=== PATIENT | male | born 1950 | race Caucasian/White ===

== ENCOUNTER 2018-11-26 08:00 | Inpatient (IN) | payer OTHER ==
[2018-11-22 15:55] VITALS: BMI 25.1
[2018-11-26] MEDS ORDERED: TRANEXAMIC ACID 1000 MG/10 ML VIAL ONE (10:17)
[2018-11-26] MEDS ORDERED: PROPOFOL 20 ML ONE ×11 (10:18→16:10)
[2018-11-26] MEDS ORDERED: SODIUM CHLORIDE 0.9% P/F 10 ML VIAL IJ ONE (10:55)
[2018-11-26] MEDS ORDERED: ceFAZolin SODIUM 1 GM VIAL ONE ×2 (10:55→20:52)
[2018-11-26] MEDS ORDERED: VANCOMYCIN 1,000 MG VIAL (RESTRICTED TO ID ONLY) ONE (10:55)
[2018-11-26] MEDS ORDERED: CEFAZOLIN 2 GM/D5W 2 GM/50 ML ML IVPB ONE (11:18)
[2018-11-26] MEDS ORDERED: VANCOMYCIN 1,250 MG in DEXTROSE 5%-WATER - 250 ML IVPB ONE (11:18)
[2018-11-26] MEDS ORDERED: KETAMINE HCL 200 MG/20 ML VIAL ONE (11:42)
[2018-11-26] MEDS ORDERED: HEPARIN NA (PORCINE) 5,000 UNITS/ML 1ML VIAL ONE ×2 (11:43→14:17)
[2018-11-26] MEDS ORDERED: fentaNYL CITRATE 250 MCG/5 ML VIAL ONE (11:58)
[2018-11-26] MEDS ORDERED: MIDAZOLAM HCL 2 MG/2 ML SINGLE DOSE VIAL ONE ×5 (11:58→13:00)
[2018-11-26] MEDS ORDERED: ROPIVACAINE HCL 0.5% 30ML VIAL ONE (12:06)
[2018-11-26] MEDS ORDERED: DEXAMETHASONE SOD PHOSPHATE 4 MG/1 ML VIAL ONE (12:06)
[2018-11-26] MEDS ORDERED: BENZOIN TINCTURE SWABSTICK TP ONE (12:18)
[2018-11-26] MEDS ORDERED: BACITRACIN 15 GM TUBE TOPICAL OINTMENT ONE (12:27)
[2018-11-26] MEDS ORDERED: DEXAMETHASONE SOD PHOSPHATE/PF 10 MG/ML SDV ONE (12:30)
--- NOTE | 2018-11-26 12:46 | HP ---
History & Physical Update - History History: No Change - Physical Physical: No Change - Assessment Assessment: No Change - Plan Plan: No Change (Full H&P in chart from 11/12/18)
[2018-11-26] MEDS ORDERED: VANCOMYCIN 1,000 MG VIAL (RESTRICTED TO ID ONLY) IVPB ONE (13:55)
[2018-11-26] MEDS ORDERED: ceFAZolin SODIUM 1 GM VIAL IVPB ONE ×2 (14:26→21:00)
[2018-11-26] MEDS ORDERED: THROMBIN (BOVINE) 5,000 UNIT VIAL TP ONE (14:28)
[2018-11-26] MEDS ORDERED: HYDROmorphone HCl 2 MG/ML VIAL ONE (14:40)
[2018-11-26] MEDS ORDERED: ONDANSETRON 4 MG/2 ML VIAL IVPUSH PRN ×2 (15:38→17:00)
[2018-11-26] MEDS ORDERED: HYDROmorphone *PCA* 10MG/50ML DISP.SYRIN PCA SCH (16:00)
[2018-11-26] MEDS ORDERED: BENZOIN/ALOE VERA/STORAX/TOLU 58 ML BOTTLE TP ONE (16:46)
[2018-11-26] MEDS ORDERED: LACTATED RINGERS SOLUTION 1,000 ML/1,000 ML INFUS.BAG IV SCH (17:00)
[2018-11-26] MEDS ORDERED: PATIENT'S OWN MEDICATION (NON-FORMULARY) (Cyclosporine [Restasis] 1 EACH) OP PRN (17:05)
[2018-11-26] MEDS ORDERED: PATIENT'S OWN MEDICATION (NON-FORMULARY) (Carisoprodol [Soma] 350 MG) PO PRN (17:05)
--- NOTE | 2018-11-26 17:08 | OP ---
Operative Note - Note: Operative Date: 11/26/18 Pre-Operative Diagnosis: cervical spondylosis Operation: C3-C7 posterior fusion Post-Operative Diagnosis: Same as Pre-op Surgeon: Juan Manuel Victoria Central Office Associate: Byron Schwartz Anesthesiologist/VACUUM CASTER: Jorge Gregg Anesthesia: General Operative Report Dictated: Yes
[2018-11-26] MEDS ORDERED: ACETAMINOPHEN 1000 MG/100 ML VIAL (NON FORMULARY) IVPB ONE (17:30)
--- NOTE | 2018-11-26 17:34 | HP ---
<ShanvelMaikel - Last Filed: 11/27/18 06:58> CHIEF COMPLAINT: Post-operative Cervical spine surgery PCP: HISTORY OF PRESENT ILLNESS: 68yo M with h/o of Type 2 DM, HLD, HTN who presents today after cervical decompression performed by Dr. Victoria. Pt remains still under effects of anesthesia, however able to talk without hoarseness and denies any pain. Pt received Decadron during his procedure, and otherwise surgery was uneventful. Pt is being recovered in PACU at time of exam. Posterior approach was taken for C3-C7 fusion and dura remained intact. PAST MEDICAL HISTORY: As above PAST SURGICAL HISTORY: Hernia repair Social History: Smoking: Current; 1/4 PPD per chart Alcohol: None Drugs: Marijuana everyday , independent in ADls Family History: Mother - DM, HTN, Cancer of unknown type Father - Dementia Allergies No Known Allergies Allergy (Verified 11/22/18 15:57) HOME MEDICATIONS: Home Medications Medication Instructions Recorded Acetaminophen/Caffeine/Butalb 1 tablet PO PRN PRN 11/26/18 [Fioricet -] Carisoprodol [Soma] 350 mg PO PRN PRN 11/26/18 Cyclobenzaprine HCl [Flexeril -] 10 mg PO HS 11/26/18 Cyclosporine [Restasis] 1 each OP PRN PRN 11/26/18 Diazepam 10 mg PO HS 11/26/18 Empagliflozin [Jardiance] 10 mg PO DAILY 11/26/18 Fenofibrate Nanocrystallized 145 mg PO DAILY 11/26/18 [Fenofibrate] Gabapentin 800 mg PO TID 11/26/18 Lansoprazole [Prevacid] 15 mg PO DAILY 11/26/18 Liraglutide [Victoza -] 0.6 mg SQ DAILY@0700 11/26/18 Oxycodone HCl/Acetaminophen 1 each PO PRN PRN 11/26/18 [Percocet 10-325 mg Tablet] Pioglitazone HCl [Actos] 30 mg PO DAILY 11/26/18 Pseudoephedrine HCl 30 mg PO QID 11/26/18 Rosuvastatin [Crestor -] 20 mg PO DAILY 11/26/18 Zolpidem Tartrate [Ambien] 10 mg PO PRN PRN 11/26/18 REVIEW OF SYSTEMS Limited due to anesthesia effects PHYSICAL EXAMINATION Vital Signs - 24 hr 11/26/18 11/26/18 12:18 12:39 Temperature 98.1 F Pulse Rate 76 Respiratory 16 Rate Blood Pressure 126/78 O2 Sat by Pulse 98 98 Oximetry (%) GENERAL: NAD, sleeping, but arouses easily to name. HEENT: NC, PARVIN, sclera anicteric, MMM NECK: C-collar in place. No drain LUNGS: CTA bilaterally. No wheezes, and no crackles. No accessory muscle use. On 2LNC 98% HEART: RRR, normal S1 and S2 without murmur ABDOMEN: Soft, NT/ND, hypoactive bowel sounds, no guarding EXTREMITIES: 2+ pulses, warm, well-perfused. No calf tenderness. No peripheral edema. NEUROLOGICAL: Unable to fully assess at this time. will reassess when patient responding to commands more readily SKIN: Warm, dry, no rashes Laboratory Results - last 24 hr 11/26/18 11/26/18 11/26/18 10:40 12:26 12:56 POC Glucometer 90 Blood Type B POSITIVE B POSITIVE Antibody Screen Negative ASSESSMENT/PLAN: POD#0 C3-C7 spinal fusion Type 2 DM HTN HLD --Titrate O2 as tolerated --Maintain C-collar --Position restrictions per surgical team --Neuro checks --WEB SIZER pump for pain control --Zofran for any post-op nausea currently --Incentive spirometer to be ordered --Physical therapy ordered for tomorrow --Can continue pt's TZD, however would use ISS for coverage for now --Can escalate insulin coverage as BGMs escalate --Continue Crestor 20HS FEN: Fluids: LR@100cc/hr for immediate post-op period Electrolyte abnormalities: None in clearance; check in AM Nutrition: Per surgical team PPX: DVT - SCDs only GI - Not indicated Dispo: ICU monitoring for 24hr and can transfer to floors in AM Maikel Gardner DO - GRACE PGY-3 Visit type - Emergency Visit Emergency Visit: No - New Patient This patient is new to me today: Yes Date on this admission: 11/26/18 - Critical Care Critical Care patient: No ATTENDING PHYSICIAN STATEMENT I saw and evaluated the patient. I reviewed the resident's note and discussed the case with the resident. I agree with the resident's findings and plan as documented. SUBJECTIVE: OBJECTIVE: ASSESSMENT AND PLAN: <Amado Anderson - Last Filed: 11/30/18 08:45> CHIEF COMPLAINT: Postop admit Seen and examined; I agree with history and physical outlined above aside from as I supplemented. Pain is controlled but is groggy. No complaints. No chest pain, SOB. 10 sys ROS done and negative aside from HPI Allergies No Known Allergies Allergy (Verified 11/22/18 15:57) HOME MEDICATIONS: Home Medications Medication Instructions Recorded Acetaminophen/Caffeine/Butalb 1 tablet PO PRN PRN 11/26/18 [Fioricet -] Carisoprodol [Soma] 350 mg PO PRN PRN 11/26/18 Cyclobenzaprine HCl [Flexeril -] 10 mg PO HS 11/26/18 Cyclosporine [Restasis] 1 each OP PRN PRN 11/26/18 Diazepam 10 mg PO HS 11/26/18 Empagliflozin [Jardiance] 10 mg PO DAILY 11/26/18 Fenofibrate Nanocrystallized 145 mg PO DAILY 11/26/18 [Fenofibrate] Gabapentin 800 mg PO TID 11/26/18 Lansoprazole [Prevacid] 15 mg PO DAILY 11/26/18 Liraglutide [Victoza -] 0.6 mg SQ DAILY@0700 11/26/18 Oxycodone HCl/Acetaminophen 1 each PO PRN PRN 11/26/18 [Percocet 10-325 mg Tablet] Pioglitazone HCl [Actos] 30 mg PO DAILY 11/26/18 Pseudoephedrine HCl 30 mg PO QID 11/26/18 Rosuvastatin [Crestor -] 20 mg PO DAILY 11/26/18 Zolpidem Tartrate [Ambien] 10 mg PO PRN PRN 11/26/18 REVIEW OF SYSTEMS 10 sys ROS done and negative aside from HPI PHYSICAL EXAMINATION Vital Signs - 24 hr 11/26/18 11/26/18 11/26/18 12:18 12:39 17:16 Temperature 98.1 F 97.0 F L Pulse Rate 76 74 Respiratory 16 13 Rate Blood Pressure 126/78 162/87 O2 Sat by Pulse 98 98 100 Oximetry (%) 11/26/18 11/26/18 11/26/18 17:30 17:45 18:00 Temperature Pulse Rate 72 73 75 Respiratory 12 12 15 Rate Blood Pressure 150/98 149/78 154/80 O2 Sat by Pulse 100 98 100 Oximetry (%) 11/26/18 11/26/18 11/26/18 18:15 18:30 18:45 Temperature Pulse Rate 76 71 82 Respiratory 12 12 12 Rate Blood Pressure 148/87 141/81 145/82 O2 Sat by Pulse 100 100 99 Oximetry (%) 11/26/18 11/26/18 11/26/18 19:00 19:15 19:30 Temperature Pulse Rate 76 83 75 Respiratory 12 12 13 Rate Blood Pressure 152/76 133/76 122/72 O2 Sat by Pulse 99 99 99 Oximetry (%) 11/26/18 11/26/18 11/26/18 19:45 20:00 20:15 Temperature Pulse Rate 74 75 74 Respiratory 13 13 13 Rate Blood Pressure 126/71 136/74 119/68 O2 Sat by Pulse 97 97 97 Oximetry (%) 11/26/18 11/26/18 11/26/18 20:30 20:45 21:00 Temperature 98.5 F Pulse Rate 75 78 74 Respiratory 13 13 13 Rate Blood Pressure 119/78 133/74 117/68 O2 Sat by Pulse 97 97 99 Oximetry (%) 11/26/18 11/26/18 11/26/18 21:23 22:00 23:23 Temperature 98.3 F Pulse Rate 77 73 83 Respiratory 10 11 15 Rate Blood Pressure 117/82 117/81 117/81 O2 Sat by Pulse 98 Oximetry (%) 11/27/18 11/27/18 11/27/18 02:00 04:00 06:00 Temperature 97.9 F 97.8 F Pulse Rate 75 77 81 Respiratory 13 14 15 Rate Blood Pressure 133/74 130/74 140/99 O2 Sat by Pulse 97 Oximetry (%) GENERAL: Awake but sleepy, NAD, seen postop HEAD: Normal with no signs of trauma. EYES: Pupils equal, round and reactive to light, extraocular movements intact, sclera anicteric, conjunctiva clear. No lid lag. EARS, NOSE, THROAT: Ears normal, nares patent, oropharynx clear without exudates. Moist mucous membranes. NECK: Normal range of motion, supple without lymphadenopathy, JVD, or masses. LUNGS: Breath sounds equal, clear to auscultation bilaterally. No wheezes, and no crackles. No accessory muscle use. HEART: Regular rate and rhythm, normal S1 and S2 without murmur, rub or gallop. ABDOMEN: Soft, nontender, not distended, normoactive bowel sounds, no guarding, no rebound, no masses. No hepatomegaly or splenomegaly. MUSCULOSKELETAL: Normal range of motion at all joints. No bony deformities or tenderness. No CVA tenderness. NEUROLOGICAL: Cranial nerves II-XII intact. Normal speech. Normal gait. PSYCHIATRIC: Cooperative. Good eye contact. Appropriate mood and affect. SKIN: Warm, dry, normal turgor, no rashes or lesions noted, normal capillary refill. Dressing c/d/i Laboratory Results - last 24 hr 11/26/18 11/26/18 11/26/18 10:40 12:26 12:56 POC Glucometer 90 Blood Type B POSITIVE B POSITIVE Antibody Screen Negative 11/26/18 11/27/18 20:46 06:40 POC Glucometer 112 118 Blood Type Antibody Screen ASSESSMENT/PLAN: Presents postoperatively for elective C-spine fusion with Dr. Victoria Problems include: -S/P c-spine sgy (no post op complications, pain management per surgical services) -DM, controlled so far -HTN -HLD -Chronic cervicalgia Full Code DC planning provided no post op complications; continue home meds and will followup along PCCM service ATTENDING PHYSICIAN STATEMENT I saw and evaluated the patient. I reviewed the resident's note and discussed the case with the resident. I agree with the resident's findings and plan as documented. SUBJECTIVE: OBJECTIVE: ASSESSMENT AND PLAN:
[2018-11-26] MEDS ORDERED: ACETAMINOPHEN INJECTION 100 ML IVPB ONE (17:36)
[2018-11-26] MEDS ORDERED: HYDROmorphone *PCA* 10MG/50ML DISP.SYRIN ONE (17:36)
[2018-11-26] MEDS ORDERED: HYDROmorphone *PCA* 10MG/50ML DISP.SYRIN PCA ONE (17:45)
--- NOTE | 2018-11-26 20:03 | OP ---
DATE OF OPERATION: DATE OF DICTATION: 11/26/2018 SURGEON: Juan Manuel Victoria MD COUPON CLERK: KATHRYN White PREOPERATIVE DIAGNOSIS: Previous anterior C4-C7 corpectomy, Harms cage fusion with C3, 4 facet arthropathy and segmental instability and possible C6, 7 pseudoarthrosis. POSTOPERATIVE DIAGNOSIS: Previous anterior C4-C7 corpectomy, Harms cage fusion with C3, 4 facet arthropathy and segmental instability and possible C6, 7 pseudoarthrosis. OPERATIONS PERFORMED: 1. Lateral mass screws C3-C7. 2. Posterolateral arthrodesis C3-C7. 3. Bone marrow aspirate concentrate for stem cells. Bone autologous graft expanded with allograft. ANESTHESIA: General. ANTIBIOTICS GIVEN: Kefzol 2 g, 1 g vancomycin. OPERATION DETAILS: Patient correctly identified. Brought to the operating room. Placed in the supine position. The 1st component of the operation was the application of a Boyce frame on the skull. This was seated in line with the tragus. Patient was turned prone onto gel rolls and the Boyce frame connected on the Boyce outrigger. The positioning of the patient adjusted until he was anatomical in the coronal as well as sagittal plane. This was to our visual appreciation. Lateral fluoroscopic x-rays revealed easy access to the cervical region accordingly. Draping was with Betadine scrub solution, wiped off with alcohol, DuraPrep applied. A window drape applied. Time-out was called. INDICATIONS: This patient underwent a C5, 6 corpectomy in the past with Harms cage placement, bone grafting. The Harms cage was seated well. Had sunk into position. There was a thought by the radiology team of possible screw loosening, but clearly apparent that the major problem was that at C3, 4. This entailed a C3-C7 posterior instrumented posterolateral arthrodesis. In the prone position under general at that after draping appropriately, a midline incision was made from the base of the skull to the level of the tip of the transverse spinous process of T1. Subperiosteal dissection performed using unipolar Bovie as well as bipolar. Very clear dissection performed. Lateral fluoroscopic x-ray revealed the correct levels for the fusion accordingly. Once this had been performed, the lamina and each transverse process upswing was identified. The so called box on the transverse process was noted and the screws inserted aimed 10 degrees laterally, and I elected to seat these screws perpendicular facet joints in an attempt also to go across the facet joint for additional fixation. The screws measured 12 mm. This was a Precision instrumentation system. The screws at C3, C7 inserted both left and right hand side. Rods were contoured onto this area. The rods were in their positioning. The tulips were biased more medially to give adequate room for posterolateral arthrodesis bone graft. A bone marrow aspirate concentrate was harvested on the left posterior ilium, spun down for the CD34 cells. Bone grafting was cancellous bone soaked in the stem cells. This was then mixed with allograft chips and allograft putty and the entire region packed with bone graft posterolaterally as well as posteriorly from C3- C7. The wounds had been thoroughly lavaged. Closure 1st individual each erector spinae muscle on left and right and side were closed with No. 1 Vicryl, fascia with No. 1 Vicryl, subcutaneous 2-0 Vicryl, and skin 3-0 Monocryl with Steri-Strips thus completing a complex wound closure of about 15 cm. No complications. Operation went well. MD TATI Brito/[id number] MTDD
[2018-11-26] MEDS ORDERED: INSULIN SLIDING SCALE (NOVOLOG) 1 VIAL SQ SCH (22:00)
[2018-11-26] MEDS: CEFAZOLIN 1 GM in DEXTROSE 5%-WATER - 50 ML IVPB SCH (22:25)
[2018-11-26] MEDS: MUPIROCIN 2% TOPICAL OINTMENT FOR DECOLONIZATION NS SCH (22:25)
[2018-11-26] MEDS: CHLORHEXIDINE GLUCONATE 4% CLEANSER FOR DECOLONIZATION TP SCH ×2 (22:25→22:45)
[2018-11-26] MEDS: INSULIN SLIDING SCALE (NOVOLOG) 1 VIAL SQ SCH (22:27)
[2018-11-26] MEDS: DOCUSATE SODIUM 100 MG CAPSULE (FP) PO SCH (22:50)
[2018-11-26] MEDS: GABAPENTIN 400 MG CAPSULE (FP) PO SCH (22:50)
[2018-11-27] MEDS: ACETAMINOPHEN 1000 MG/100 ML VIAL (NON FORMULARY) IVPB SCH ×4 (00:14→15:43)
[2018-11-27] MEDS: diazePAM 5 MG TABLET PO PRN ×2 (02:28→10:11)
[2018-11-27] MEDS ORDERED: DEXTROSE 5%-WATER - 50 ML IVPB ONE ×2 (05:42→14:27)
[2018-11-27] MEDS ORDERED: ceFAZolin SODIUM 1 GM VIAL ONE ×2 (05:42→14:27)
[2018-11-27] MEDS: CEFAZOLIN 1 GM in DEXTROSE 5%-WATER - 50 ML IVPB SCH ×2 (06:12→14:00)
[2018-11-27] MEDS: DOCUSATE SODIUM 100 MG CAPSULE (FP) PO SCH ×2 (06:12→15:11)
[2018-11-27] MEDS: GABAPENTIN 400 MG CAPSULE (FP) PO SCH ×2 (06:12→14:00)
--- NOTE | 2018-11-27 06:32 | PN ---
Progress Note (short form) - Note Progress Note: HPI: Pt with multiple complaints regarding pain management addressed by surgical team. Pt reports wanting to get home. Denies being OOB. No parasthesias or weakness. No telemetry events. Vital Signs Temperature 97.8 F 11/27/18 06:00 Pulse Rate 78 11/27/18 08:00 Respiratory Rate 18 11/27/18 08:00 Blood Pressure 138/100 11/27/18 08:00 O2 Sat by Pulse Oximetry (%) 97 11/27/18 02:00 PE: Gen: NAD, awake, alert, oriented x3 HEENT: NC/AT, PARVIN, MMM, sclera anicteric Neck: C-collar in place, posterior bandage recently changed still clean Lung: CTA b/l no wheezes on RA Card: RRR no murmurs Neuro: Nonfocal exam. Strength 5/5 in upper extremities, Sensation intact : Call still in place Ext: No edema Active Medications Acetaminophen (Ofirmev Injection -) 1,000 mg IVPB Q6H [facility] Last Admin: 11/27/18 09:38 Dose: 1,000 mg Chlorhexidine Gluconate (Hibiclens For Decolonization -) 1 applic TP HS [facility] Last Admin: 11/26/18 22:45 Dose: Not Given Diazepam (Valium -) 5 mg PO TID PRN PRN Reason: MUSCLE SPASMS Last Admin: 11/27/18 02:28 Dose: 5 mg Diphenhydramine HCl (Benadryl Injection -) 12.5 mg IVPUSH ONCE PRN PRN Reason: FOR ITCHING Docusate Sodium (Colace -) 100 mg PO TID [facility] Last Admin: 11/27/18 06:12 Dose: 100 mg Fenofibric Acid (Trilipix -) 135 mg PO DAILY [facility] Last Admin: 11/27/18 09:37 Dose: 135 mg Gabapentin (Neurontin -) 800 mg PO TID [facility] Last Admin: 11/27/18 06:12 Dose: 800 mg Cefazolin Sodium 1 gm/ (Dextrose) 50 mls @ 100 mls/hr IVPB Q8H [facility] Stop: 11/27/18 21:59 Last Admin: 11/27/18 06:12 Dose: 100 mls/hr Insulin Aspart (Novolog Vial Sliding Scale -) 1 vial SQ ACHS [facility]; Protocol Last Admin: 11/27/18 06:42 Dose: Not Given Mupirocin (Bactroban Ointment (For Decolonization) -) 1 applic NS BID [facility] Stop: 12/01/18 21:59 Last Admin: 11/26/18 22:25 Dose: 1 applic Ondansetron HCl (Zofran Injection) 4 mg IVPUSH Q6H PRN PRN Reason: NAUSEA Oxycodone HCl (Roxicodone -) 10 mg PO Q4H PRN PRN Reason: PAIN LEVEL 1-5 Oxycodone HCl (Roxicodone -) 15 mg PO Q4H PRN PRN Reason: PAIN LEVEL 7 - 10 Pantoprazole Sodium (Protonix -) 20 mg PO DAILY [facility] Last Admin: 11/27/18 09:37 Dose: 20 mg Pioglitazone HCl (Actos -) 30 mg PO DAILY@0700 [facility] Last Admin: 11/27/18 09:37 Dose: 30 mg Rosuvastatin Calcium (Crestor -) 20 mg PO DAILY [facility] Last Admin: 11/27/18 09:37 Dose: 20 mg ASSESSMENT/PLAN: POD#0 C3-C7 spinal fusion Type 2 DM HTN HLD --Maintain C-collar --Pain management per surgical and anesthesia team --Discontinue call --OOB as tolerated; physical therapy --Encouraged incentive spirometer --Continue pt's TZD coverage with ISS; [facility] ACHS --Crestor 20mg HS PO --Colace and Senna on board for PRN constipatoin FEN: Fluids: Encourage PO; disconinue Electrolyte abnormalities: None in clearance; check in AM Nutrition: Per surgical team PPX: DVT - SCDs only GI - Not indicated Dispo: ICU monitoring for 24hr and can transfer to floors in AM Maikel Gardner, DO - IM PGY-3
[2018-11-27] MEDS: INSULIN SLIDING SCALE (NOVOLOG) 1 VIAL SQ SCH ×3 (06:42→17:00)
[2018-11-27] MEDS ORDERED: PIOGLITAZONE HCL 30 MG TABLET (FP) PO SCH (07:00)
[2018-11-27] MEDS ORDERED: KETOROLAC TROMETHAMINE 30 MG/1 ML VIAL IVPUSH ONE (07:00)
[2018-11-27] MEDS ORDERED: oxyCODONE HCL 5 MG TABLET PO PRN (08:24)
[2018-11-27] MEDS ORDERED: PT OWN MED DRAWER 7, Y5N ONE (08:43)
--- NOTE | 2018-11-27 09:54 | PN ---
Progress Note (short form) - Note Progress Note: POD 1, s/p C3-C7 posterior fusion Pt seen and examined. 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 Reports it is "not working" and requests his home Percocet dose be reinstated. Pt also requesting to go home today. Has not been oob yet, call in place. Tolerating clears, requestign more food reports he is "starving and has not eaten for 48 hours". Denies cp/sob, n/v/d, calf pain. Vital Signs Temp 97.8 F 11/27/18 06:00 Pulse 78 11/27/18 08:00 Resp 18 11/27/18 08:00 BP 138/100 11/27/18 08:00 Pulse Ox 97 11/27/18 02:00 Intake & Output 11/26/18 11/26/18 11/27/18 11:59 23:59 11:59 Intake Total 2550 1025 Output Total 2325 700 Balance 225 325 Intake: IV 2550 875 LACTATED RINGERS SOLUTION 250 875 1,000 ml In 1,000 ml @ 125 mls/hr IV ASDIR WEI Rx#:[id number] IVPB 150 Output: Urine 2225 700 Call 300 700 Estimated Blood Loss 100 Other: Voiding Method Indwelling Catheter Bowel Movement No No Gen: awake, alert, nad Resp: Unlabored on RA Neck: Posterior neck dressing saturated, dressing removed steri-strips in place , new 4x4s and tegaderms applied. 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 5/5 biceps/triceps/deltoids. B/L shoulder shrug strong and equal. SILT b/l ues. B/L Les 5/5 dorsi/ plantarflexion. SILT b/l les A/P: 68 y/o M w/ PMHx Type 2 DM, HLD, HTN, Cervical spondylosis/disc herniation s/p multiple prior surgeries admitted for elective PLIF C3-C7, now POD 1. Afebrile, VSS AM labs pending Extensive conversation with pt regarding overnight events. New pain regimen discussed, pt agreeable. Reassurance provided. Pt significantly less agitated at completion of discussion. 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
[2018-11-27] MEDS ORDERED: PANTOPRAZOLE 20 MG TABLET (FP) PO SCH (10:00)
[2018-11-27] MEDS ORDERED: FENOFIBRIC ACID 135 MG CAP PO SCH (10:00)
[2018-11-27] MEDS ORDERED: PATIENT'S OWN MEDICATION (NON-FORMULARY) (Empagliflozin [Jardiance] 10 MG) PO SCH (10:00)
[2018-11-27] MEDS ORDERED: ROSUVASTATIN CA 20 MG TABLET (FP) PO SCH (10:00)
[2018-11-27] MEDS: MUPIROCIN 2% TOPICAL OINTMENT FOR DECOLONIZATION NS SCH (10:00)
[2018-11-27] MEDS: oxyCODONE HCL 5 MG TABLET PO PRN ×2 (10:10→15:10)
[2018-11-27 10:20] LABS: ALBUMIN 3.6 g/dl (3.4-5.0); BILIRUBIN,TOTAL 0.4 mg/dL (0.2-1); CALCIUM 8.7 mg/dL (8.5-10.1); CREATININE 1.1 mg/dL (0.55-1.3); MAGNESIUM 1.9 mg/dL (1.8-2.4); POTASSIUM 4.1 mmol/L (3.5-5.1); TOT PROT 6.3 g/dl (6.4-8.2)
--- NOTE | 2018-11-27 11:34 | PN ---
Teaching Attending Note Name of Resident: Pravin Garza ATTENDING PHYSICIAN STATEMENT I saw and evaluated the patient. I reviewed the resident's note and discussed the case with the resident. I agree with the resident's findings and plan as documented. SUBJECTIVE: Patient seen and examined in the ICU. Awake and alert. Pain seems better controlled. NO CP or SOB. Intake & Output 11/24/18 11/25/18 11/26/18 11/27/18 23:59 23:59 23:59 23:59 Intake Total 2550 1025 Output Total 2325 700 Balance 225 325 Last Vital Signs Temp Pulse Resp BP Pulse Ox 97.8 F 78 18 138/100 97 11/27/18 06:00 11/27/18 08:00 11/27/18 08:00 11/27/18 08:00 11/27/18 02:00 Active Medications Acetaminophen (Ofirmev Injection -) 1,000 mg IVPB Q6H [facility] Last Admin: 11/27/18 09:38 Dose: 1,000 mg Chlorhexidine Gluconate (Hibiclens For Decolonization -) 1 applic TP HS [facility] Last Admin: 11/26/18 22:45 Dose: Not Given Diazepam (Valium -) 5 mg PO TID PRN PRN Reason: MUSCLE SPASMS Last Admin: 11/27/18 10:11 Dose: 5 mg Diphenhydramine HCl (Benadryl Injection -) 12.5 mg IVPUSH ONCE PRN PRN Reason: FOR ITCHING Docusate Sodium (Colace -) 100 mg PO TID [facility] Last Admin: 11/27/18 06:12 Dose: 100 mg Fenofibric Acid (Trilipix -) 135 mg PO DAILY [facility] Last Admin: 11/27/18 09:37 Dose: 135 mg Gabapentin (Neurontin -) 800 mg PO TID [facility] Last Admin: 11/27/18 06:12 Dose: 800 mg Cefazolin Sodium 1 gm/ (Dextrose) 50 mls @ 100 mls/hr IVPB Q8H [facility] Stop: 11/27/18 21:59 Last Admin: 11/27/18 06:12 Dose: 100 mls/hr Insulin Aspart (Novolog Vial Sliding Scale -) 1 vial SQ [facility]; Protocol Last Admin: 11/27/18 06:42 Dose: Not Given Mupirocin (Bactroban Ointment (For Decolonization) -) 1 applic NS BID [facility] Stop: 12/01/18 21:59 Last Admin: 11/26/18 22:25 Dose: 1 applic Ondansetron HCl (Zofran Injection) 4 mg IVPUSH Q6H PRN PRN Reason: NAUSEA Oxycodone HCl (Roxicodone -) 10 mg PO Q4H PRN PRN Reason: PAIN LEVEL 1-5 Oxycodone HCl (Roxicodone -) 15 mg PO Q4H PRN PRN Reason: PAIN LEVEL 7 - 10 Last Admin: 11/27/18 10:10 Dose: 15 mg Pantoprazole Sodium (Protonix -) 20 mg PO DAILY [facility] Last Admin: 11/27/18 09:37 Dose: 20 mg Pioglitazone HCl (Actos -) 30 mg PO DAILY@0700 [facility] Last Admin: 11/27/18 09:37 Dose: 30 mg Rosuvastatin Calcium (Crestor -) 20 mg PO DAILY [facility] Last Admin: 11/27/18 09:37 Dose: 20 mg GENERAL: Awake and alert, NAD HEENT: NC, PARVIN, sclera anicteric, MMM NECK: C-collar in place. No drain LUNGS: CTA bilaterally. No wheezes, and no crackles. No accessory muscle use. On 2LNC 98% HEART: RRR, normal S1 and S2 without murmur ABDOMEN: Soft, NT/ND, (+) bowel sounds, no guarding EXTREMITIES: 2+ pulses, warm, well-perfused. No calf tenderness. No peripheral edema. NEUROLOGICAL: Awake and alert, non-focal SKIN: Warm, dry, no rashes Laboratory Results - last 24 hr 11/26/18 11/26/18 11/26/18 10:40 12:26 12:56 Sodium Potassium Chloride Carbon Dioxide Anion Gap BUN Creatinine Est GFR (CKD-EPI)AfAm Est GFR (CKD-EPI)NonAf POC Glucometer 90 Random Glucose Calcium Phosphorus Magnesium Total Bilirubin AST ALT Alkaline Phosphatase Total Protein Albumin Blood Type B POSITIVE B POSITIVE Antibody Screen Negative 11/26/18 11/27/18 11/27/18 20:46 06:40 09:10 Sodium 138 Potassium 4.1 Chloride 105 Carbon Dioxide 25 Anion Gap 8 BUN 23.0 H Creatinine 1.1 Est GFR (CKD-EPI)AfAm 78.97 Est GFR (CKD-EPI)NonAf 68.13 POC Glucometer 112 118 Random Glucose 100 Calcium 8.7 Phosphorus 3.0 Magnesium 1.9 Total Bilirubin 0.4 AST 28 ALT 21 Alkaline Phosphatase 39 L Total Protein 6.3 L Albumin 3.6 Blood Type Antibody Screen ASSESSMENT/PLAN: POD#1: S/P C3-C7 spinal fusion Type 2 DM HTN HLD Pain control Incentive Spirometry O2 as needed PO as tolerated OOB to chair / PT Glycemic control DC planning Dr Marte
--- NOTE | 2018-11-27 13:30 | PN ---
Physical Exam: SUBJECTIVE: Patient seen and examined. No acute events overnight. Denies chest pain/SOB. Passing flatus. Wants more pain meds. OBJECTIVE: Vital Signs Period Temp Pulse Resp BP Sys/Champion Pulse Ox Last 24 Hr 97.0 F-98.5 F 71-89 10-18 115-162/65-100 93-100 GENERAL: The patient is awake, alert, and fully oriented, in no acute distress. HEAD: Normal with no signs of trauma. NECK: Trachea midline. Closed midline posterior cervical sutures in place w mild swelling/erythema. Limited ROM LUNGS: Breath sounds equal, clear to auscultation bilaterally, no wheezes, no crackles, no accessory muscle use. HEART: Regular rate and rhythm, S1, S2 without murmur, rub or gallop. ABDOMEN: Soft, nontender, nondistended, normoactive bowel sounds, no guarding, no rebound, no hepatosplenomegaly, no masses. EXTREMITIES: 2+ pulses, warm, well-perfused, no edema. NEUROLOGICAL: A&Ox3. Normal speech, gait not observed. Laboratory Results - last 24 hr 11/26/18 11/26/18 11/27/18 12:56 20:46 06:40 Sodium Potassium Chloride Carbon Dioxide Anion Gap BUN Creatinine Est GFR (CKD-EPI)AfAm Est GFR (CKD-EPI)NonAf POC Glucometer 112 118 Random Glucose Calcium Phosphorus Magnesium Total Bilirubin AST ALT Alkaline Phosphatase Total Protein Albumin Blood Type B POSITIVE 11/27/18 09:10 Sodium 138 Potassium 4.1 Chloride 105 Carbon Dioxide 25 Anion Gap 8 BUN 23.0 H Creatinine 1.1 Est GFR (CKD-EPI)AfAm 78.97 Est GFR (CKD-EPI)NonAf 68.13 POC Glucometer Random Glucose 100 Calcium 8.7 Phosphorus 3.0 Magnesium 1.9 Total Bilirubin 0.4 AST 28 ALT 21 Alkaline Phosphatase 39 L Total Protein 6.3 L Albumin 3.6 Blood Type Active Medications Generic Name Dose Route Start Last Admin Trade Name Freq PRN Reason Stop Dose Admin Acetaminophen 1,000 mg 11/26/18 15:45 11/27/18 09:38 Ofirmev Injection - IVPB 1,000 mg Q6H WEI Administration Chlorhexidine Gluconate 1 applic 11/26/18 22:00 11/26/18 22:45 Hibiclens For Decolonization - TP Not Given HS WEI Diazepam 5 mg 11/26/18 17:05 11/27/18 10:11 Valium - PO 5 mg TID PRN Administration MUSCLE SPASMS Diphenhydramine HCl 12.5 mg 11/26/18 15:58 Benadryl Injection - IVPUSH ONCE PRN FOR ITCHING Docusate Sodium 100 mg 11/26/18 22:00 11/27/18 06:12 Colace - PO 100 mg TID WEI Administration Fenofibric Acid 135 mg 11/27/18 10:00 11/27/18 09:37 Trilipix - PO 135 mg DAILY WEI Administration Gabapentin 800 mg 11/26/18 22:00 11/27/18 06:12 Neurontin - PO 800 mg TID WEI Administration Cefazolin Sodium 1 gm/ 50 mls @ 100 mls/hr 11/26/18 22:00 11/27/18 06:12 Dextrose IVPB 11/27/18 21:59 100 mls/hr Q8H WEI Administration Insulin Aspart 1 vial 11/26/18 22:00 11/27/18 06:42 Novolog Vial Sliding Scale - SQ Not Given ACHS [facility] Protocol Mupirocin 1 applic 11/26/18 22:00 11/26/18 22:25 Bactroban Ointment (For Decolonization) - NS 12/01/18 21:59 1 applic BID WEI Administration Ondansetron HCl 4 mg 11/26/18 17:00 Zofran Injection IVPUSH Q6H PRN NAUSEA Oxycodone HCl 10 mg 11/27/18 08:24 Roxicodone - PO Q4H PRN PAIN LEVEL 1-5 Oxycodone HCl 15 mg 11/27/18 08:24 11/27/18 10:10 Roxicodone - PO 15 mg Q4H PRN Administration PAIN LEVEL 7 - 10 Pantoprazole Sodium 20 mg 11/27/18 10:00 11/27/18 09:37 Protonix - PO 20 mg DAILY WEI Administration Pioglitazone HCl 30 mg 11/27/18 07:00 11/27/18 09:37 Actos - PO 30 mg DAILY@0700 WEI Administration Rosuvastatin Calcium 20 mg 11/27/18 10:00 11/27/18 09:37 Crestor - PO 20 mg DAILY WEI Administration ASSESSMENT/PLAN: Mario Vance is a 68yM w PMHx T2DM, HTN, HLD, cervical spondylosis/disc herniation s /p multiple surgeries admitted for elective posterior lumbar interbody fusion C3 -7, POD 1 Cardiac - normotensive, no active issues - crestor - DVT ppx Pulm - normal O2sat on RA, no active issues - incentive spirometry Neuro - AOx3, no active issues - removed c-collar - pain control w oxycodone, valium, ofirmev PRN GI - making flatus, advanced to diabetes diet - colase, senna, fenofibrate PRN constipation - zofran PRN - GI ppx Endo - BG controlled w Novolog SS, pioglitazone - I/O - making urine, removed call ID - mild leukocytosis 10.8 - 1g ancef q8h PT - ambulated w PT FEN - Fluids: none - Electrolyte abnormalities: none - Nutrition: diabetes diet PPX DVT - SCDs GI - none Dispo - home after discussed w Dr Victoria. Already ambulated w PT, voided after call removed, eating DM diet Pravin Garza EM Resident PGY1 Discussed w attending Dr Marte Visit type - Emergency Visit Emergency Visit: Yes ED Registration Date: 11/26/18 Care time: The patient presented to the Emergency Department on the above date and was hospitalized for further evaluation of their emergent condition. - New Patient This patient is new to me today: Yes Date on this admission: 11/27/18 - Critical Care Critical Care patient: Yes Total Critical Care Time (in minutes): 36 Critical Care Statement: The care of this patient involved high complexity decision making to prevent further life threatening deterioration of the patient 's condition and/or to evaluate & treat vital organ system(s) failure or risk of failure. ATTENDING PHYSICIAN STATEMENT I saw and evaluated the patient. I reviewed the resident's note and discussed the case with the resident. I agree with the resident's findings and plan as documented. SUBJECTIVE: OBJECTIVE: ASSESSMENT AND PLAN:
[2018-11-27 14:03] LABS: HEMATOCRIT 42.7 % (35.4-49); HEMOGLOBIN 14.6 GM/dL (11.7-16.9); MCH 30.9 pg (25.7-33.7); MCHC 34.3 g/dl (32.0-35.9); MEAN CELL VOLUME 90.1 fl (80-96); MEAN PLT VOLUME 12.9 fl (7.5-11.1); PLATELET COUNT 127 K/MM3 (134-434); RBC 4.74 M/mm3 (4.00-5.60); WHITE BLOOD COUNT 10.8 K/mm3 (4.0-10.0)
--- NOTE | 2018-11-27 14:18 | PN ---
Progress Note (short form) - Note Progress Note: Anesthesia POD#1 S/P C3-7 posterior Fusion under GA and PRE BILLING CLINICIAN VSS,awke,oriented. had high tolerance for narcotics,Patient Registration Specialist was not sufficient. It is discontinued. A/P patient can take PO narcotics. Agree with Oxycodone 15mg q4 po PRN Valuim increased to 10 mg. Anayeli Brothers MD.
--- NOTE | 2018-11-27 14:50 | SURG ---
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 Lateral mass screws C3-C7 2. Posterior lateral arthrodesis C3-C7 3. Bone marrow aspiration concentration for stem cells, Bone autologous graft expanded with allograft I was present for the entirety of the operative procedure. For further detail, please refer to operative report. Visit type - Case Type Case Type: Scheduled - Emergency Emergency Visit: No - New patient This patient is new to me today: Yes Date on this admission: 11/27/18 - Critical Care Critical Care patient: No
--- NOTE | 2018-11-27 15:10 | DS ---
Physical Exam: SUBJECTIVE: Pt with multiple complaints regarding pain management addressed by surgical team. Pt reports wanting to get home. Denies being OOB. No parasthesias or weakness. No telemetry event OBJECTIVE: Vital Signs Period Temp Pulse Resp BP Sys/Champion Pulse Ox Last 24 Hr 97.0 F-98.5 F 71-89 10-18 115-162/65-100 93-100 PHYSICAL EXAM Gen: NAD, awake, alert, oriented x3 HEENT: NC/AT, PARVIN, MMM, sclera anicteric Neck: C-collar in place, posterior bandage recently changed still clean Lung: CTA b/l no wheezes on RA Card: RRR no murmurs Neuro: Nonfocal exam. Strength 5/5 in upper extremities, Sensation intact : Call still in place Ext: No edema LABS Laboratory Results - last 24 hr 11/26/18 11/27/18 11/27/18 20:46 06:40 09:10 WBC RBC Hgb Hct MCV MCH MCHC RDW Plt Count MPV Sodium 138 Potassium 4.1 Chloride 105 Carbon Dioxide 25 Anion Gap 8 BUN 23.0 H Creatinine 1.1 Est GFR (CKD-EPI)AfAm 78.97 Est GFR (CKD-EPI)NonAf 68.13 POC Glucometer 112 118 Random Glucose 100 Calcium 8.7 Phosphorus 3.0 Magnesium 1.9 Total Bilirubin 0.4 AST 28 ALT 21 Alkaline Phosphatase 39 L Total Protein 6.3 L Albumin 3.6 11/27/18 09:10 WBC 10.8 H RBC 4.74 Hgb 14.6 Hct 42.7 MCV 90.1 MCH 30.9 MCHC 34.3 RDW 14.0 Plt Count 127 L MPV 12.9 H Sodium Potassium Chloride Carbon Dioxide Anion Gap BUN Creatinine Est GFR (CKD-EPI)AfAm Est GFR (CKD-EPI)NonAf POC Glucometer Random Glucose Calcium Phosphorus Magnesium Total Bilirubin AST ALT Alkaline Phosphatase Total Protein Albumin IMAGING: No imaging to note (pre-operative clearance found in paper chart) No Microbiology during his stay HOSPITAL COURSE: Date of Admission:11/26/18 Date of Discharge: 11/27/18 Pt was admitted on 11/26/2018 due to cervical spine C3-C7 posterior fusion. Pt has had chronic cervicalgia that has been worsening which prompted his surgery by Dr. Juan Manuel Victoria today. Pt's procedure was uncomplicated and post-operative recovery was without any events. Pt today is able to eat and has demonstrated free void trial without call. Pt was able to walk unassisted by physical therapy. He was assessed post-operatively by the surgical team and has been cleared to be discharged. He is optimized from a medical standpoint to continue his recovery on an outpatient basis. Pt was queries on ISTOP database revealing has has prescriptions at home to continue with pain control and muscle spasms ( see below). ISTOP: [phone] [facility]: Ambien 10mg 1 at HS filled 10/28, Diazepam 10mg QID filled 10/28 for 120 tabs, Soma 350mg TID filled 10/28 for 30 day supply, Flexeril 10mg 1 at HS filled 10/26 for 30 day supply. Minutes to complete discharge: 33 <Makiel Gardner - Last Filed: 11/28/18 11:33> Physical Exam: SUBJECTIVE: Patient seen and examined OBJECTIVE: PHYSICAL EXAM GENERAL: The patient is awake, alert, and fully oriented, in no acute distress. HEAD: Normal with no signs of trauma. EYES: PERRL, extraocular movements intact, sclera anicteric, conjunctiva clear. ENT: Ears normal, nares patent, oropharynx clear without exudates, moist mucous membranes. NECK: Trachea midline, full range of motion, supple. LUNGS: Breath sounds equal, clear to auscultation bilaterally, no wheezes, no crackles, no accessory muscle use. HEART: Regular rate and rhythm, S1, S2 without murmur, rub or gallop. ABDOMEN: Soft, nontender, nondistended, normoactive bowel sounds, no guarding, no rebound, no hepatosplenomegaly, no masses. EXTREMITIES: 2+ pulses, warm, well-perfused, no edema. NEUROLOGICAL: Cranial nerves II through XII grossly intact. Normal speech, gait not observed. PSYCH: Normal mood, normal affect. SKIN: Warm, dry, normal turgor, no rashes or lesions noted. LABS HOSPITAL COURSE: Date of Admission:11/26/18 Date of Discharge: 11/30/18 <Amado Anderson - Last Filed: 11/30/18 08:51> Discharge Summary Problems reviewed: Yes Reason For Visit: CERVICAL DISC DISPLACEMENT - Home Medications Comprehensive Discharge Medication List: Ambulatory Orders Acetaminophen/Caffeine/Butalb [Fioricet -] 1 tablet PO PRN PRN 11/26/18 Carisoprodol [Soma] 350 mg PO PRN PRN 11/26/18 Cyclosporine [Restasis] 1 each OP PRN PRN 11/26/18 Empagliflozin [Jardiance] 10 mg PO DAILY 11/26/18 Fenofibrate Nanocrystallized [Fenofibrate] 145 mg PO DAILY 11/26/18 Gabapentin 800 mg PO TID 11/26/18 Lansoprazole [Prevacid] 15 mg PO DAILY 11/26/18 Liraglutide [Victoza -] 0.6 mg SQ DAILY@0700 11/26/18 Oxycodone HCl/Acetaminophen [Percocet 10-325 mg Tablet] 1 each PO PRN PRN Pioglitazone HCl [Actos] 30 mg PO DAILY 11/26/18 Rosuvastatin [Crestor -] 20 mg PO DAILY 11/26/18 Zolpidem Tartrate [Ambien] 10 mg PO PRN PRN 11/26/18 Cyclobenzaprine HCl [Flexeril -] 10 mg PO HS #28 tablet 11/27/18 Docusate Sodium [Colace -] 100 mg PO TID #30 capsule 11/27/18 <Maikel Gardner - Last Filed: 11/28/18 11:33> Problems reviewed: Yes - Home Medications Comprehensive Discharge Medication List: Ambulatory Orders Acetaminophen/Caffeine/Butalb [Fioricet -] 1 tablet PO PRN PRN 11/26/18 Carisoprodol [Soma] 350 mg PO PRN PRN 11/26/18 Cyclosporine [Restasis] 1 each OP PRN PRN 11/26/18 Empagliflozin [Jardiance] 10 mg PO DAILY 11/26/18 Fenofibrate Nanocrystallized [Fenofibrate] 145 mg PO DAILY 11/26/18 Gabapentin 800 mg PO TID 11/26/18 Lansoprazole [Prevacid] 15 mg PO DAILY 11/26/18 Liraglutide [Victoza -] 0.6 mg SQ DAILY@0700 11/26/18 Oxycodone HCl/Acetaminophen [Percocet 10-325 mg Tablet] 1 each PO PRN PRN Pioglitazone HCl [Actos] 30 mg PO DAILY 11/26/18 Rosuvastatin [Crestor -] 20 mg PO DAILY 11/26/18 Cyclobenzaprine HCl [Flexeril -] 10 mg PO HS #28 tablet 11/27/18 Docusate Sodium [Colace -] 100 mg PO TID #30 capsule 11/27/18 <Amado Anderson - Last Filed: 11/30/18 08:51> Condition: Stable - Instructions Diet, Activity, Other Instructions: Post-operative Instructions Wound Keep your dressing clean and dry and in place. Do not remove unless it becomes dirty, if this happens you should call the office prior to removing the dressing. Do not shower until you are cleared by your surgeon. Sponge bathe only. Do not swim or soak in water (bath/hot tub, etc) until cleared by your surgeon as this can lead to infection. Do not put creams or ointments on the wound for at least 4 weeks. Diet Cold liquids/foods (like ice chips, pudding, yogurt, ice cream, popsicles) are recommended initially then progress slowly to advance diet. Avoid hot foods for at least the first several days after surgery. A sensation of having a lump in your throat is normal. This may make it feel uncomfortable to swallow large bites of solid food. You should take small bites, chew well, and/or eat soft foods until this resolves. Make sure to increase your fiber intake and drink plenty of fluids (unless you have fluid restrictions due to a medical condition), to prevent constipation which is a side affect of narcotic pain medication. You may also take a stool softener such as Dulcolax. Collar/DME You will be given a collar after surgery. This is to be worn for your comfort. Pain Relief Take pain medication as prescribed. DO NOT EVER DRIVE OR OPERATE HEAVY MACHINERY WHILE TAKING NARCOTIC PAIN MEDICATION. If the pain medication you have been prescribed for pain contains Acetaminophen (Tylenol), do not take additional Tylenol. You should not exceed more than 4g (4000mg) of Tylenol in 24 hours as this can lead to liver damage or failure. Do not mix sedatives or muscle relaxers with narcotic pain medications unless otherwise cleared by your surgeon. No anti-inflammatory medications (NSAIDs: Motrin, Ibuprofen, Excedrin, Advil , Aspirin, etc) for 3 months following surgery. Use of these medications could delay the healing of your fusion. Exercise/Activity Avoid riding in a car for 2 weeks unless medically necessary. The best exercise is walking. Small amounts done frequently are best. Try to set a goal of one mile per day total. It is best to stay mobile to avoid development of blood clots in your legs. Repetitive activities using your arms may aggravate muscle spasms around your neck and upper back. Modify your activity with this in mind. Do not lift your arms above your head for the first 8 weeks after surgery. It is okay to raise your arms to comb and wash your hair once you are cleared to shower. Do not lift more than 5 lbs for the first 8 weeks after surgery. Avoid stairs while you are wearing your collar they are a fall hazard. NO running. You may use a treadmill to walk, with no incline. Use with caution. You may sleep on your side or back but NOT on your stomach as long as your cervical is securely in place. Many patients find comfort in a reclining chair. You may NOT drive until cleared by your surgeon. You may be a passenger for a short time (20 - 30 minutes) until you are able to tolerate longer distances. No sexual activity until discussed with your spine surgeon. DO NOT SMOKE. This increases the chance that your bone will not heal properly. See your primary care physician if you need assistance to quit smoking. Follow-up Please call the office to schedule your follow up appointment in 1 week. Call your doctors office or go to the ER immediately if you develop: Trouble breathing, chest tightness or shortness of breath Oral temperature greater than 100.5 F Excessive redness, swelling, or drainage at the incision site, particularly swelling around the neck incision. Foul odor from the incision. New, increasing pain/numbness/weakness in your arms/legs Referrals: Juan Manuel Victoria MD [Staff Physician] - Disposition: HOME This patient is new to me today: No Emergency Visit: No Critical Care patient: No - Discharge Referral Referred to [facility] No <Maikel Gardner - Last Filed: 11/28/18 11:33> This patient is new to me today: No Emergency Visit: No Critical Care patient: No - Discharge Referral Referred to [facility] No <Amado Anderson - Last Filed: 11/30/18 08:51> ATTENDING PHYSICIAN STATEMENT I saw and evaluated the patient. I reviewed the resident's note and discussed the case with the resident. I agree with the resident's findings and plan as documented. SUBJECTIVE: OBJECTIVE: ASSESSMENT AND PLAN: <Maikel Gardner - Last Filed: 11/28/18 11:33> ATTENDING PHYSICIAN STATEMENT I saw and evaluated the patient. I reviewed the resident's note and discussed the case with the resident. I agree with the resident's findings and plan as documented. Verified all hey historical and PE findings Pain is controlled and sgy is providing home meds No neuro symptoms and is neurovascularly intact Passing flatus, feels well, and wants to go home NAD, AAO, resting in bed NC AT EOMI PERRLA Neck supple w/ midline trachea NT ND +BS CN2-12 wnl, no fnd, moves all 4 extremities No postop wound complications noted; c/d/i bandage, no surrounding cellulitis Normal mood, appropriate behavior Hospital course agreed with; presented for elective cervical fusion with no postoperative complications. He is being discharged home to followup with Dr. Victoria and his PCP. He was kept on his home medications thoughout this admission with no issues noted. <Amado Anderson - Last Filed: 11/30/18 08:51>
[2018-11-27 18:00] VITALS: BP 135/77; PULSE 80; TEMP 98.3
[2018-11-27] MEDS ORDERED: diazePAM 5 MG TABLET PO SCH (21:00)
== END 2018-11-27 18:45 | disposition home or self-care (01) | DRG 455 ==
LOC: JSAMEDAYSX 10:13 → JICU 21:04
PROVIDERS: ADMIT Orthopaedic Surgery Orthopaedic Surgery of the Spine; ATTEND Internal Medicine
PROC: 0RG2071 Fusion of 2 or more Cervical Vertebral Joints with Autologous Tissue Substitute, Posterior Approach, Posterior Column, Open Approach (ICD-10-PCS; 2018-11-26)
PROC: B01BZZZ Fluoroscopy of Spinal Cord (ICD-10-PCS; 2018-11-26)
PROC: 07DR0ZZ Extraction of Iliac Bone Marrow, Open Approach (ICD-10-PCS; 2018-11-26)
PROC: 0RG20AJ Fusion of 2 or more Cervical Vertebral Joints with Interbody Fusion Device, Posterior Approach, Anterior Column, Open Approach (ICD-10-PCS; principal; 2018-11-26 12:00)
DX: M47.22 Other spondylosis with radiculopathy, cervical region (principal); E11.9 Type 2 diabetes mellitus without complications; I10 Essential (primary) hypertension; E78.5 Hyperlipidemia, unspecified
CPT/HCPCS: 36415; 76000-TC-FY; 80053; 82962; 83735; 84100; 85027; 86850; 86891; 86900; 86901; 94010; 94760; 97116-GP; 97162-GP; J0131; J1644

== ENCOUNTER 2018-12-30 15:10 | Inpatient (IN) | payer OTHER ==
[2018-12-30 15:15] VITALS: BMI 25.1
--- NOTE | 2018-12-30 16:49 | PDOC ---
History of Present Illness - General Chief Complaint: Pain Stated Complaint: PAIN History Source: Patient Exam Limitations: No Limitations - History of Present Illness Initial Comments: 12/30/18 16:43 Patient is a 68 year old male with h/o chronic neck pain due to spondylolysis, DM type II, HLD, HTN, hernia repair, underwent posterior fusion cervical spinal surg 11/20/18 c/o neck pain which stared 4 days ago. States was walking and heard a pop in the neck, then his walking partner noticed blood running down his neck. States he visited Dr. Victoria 3 days ago and noted that the wound was dehisced. Recommended to hold out ontill this week with the pain meds and will try to schedule for surgery. States his pain 11/15 and has had no relief from the oxycodone 30mg po. Denies fever, chills, nausea, vomiting. Ortho: Dr. Juan Manuel Victoria [phone] PMHX: as above PSOCHX: (+) MJ, (-) etoh, (+) cig 1/4 PPD ALL: NKDA GENERAL/CONSTITUTIONAL: [No fever or chills. No weakness. No weight change.] HEAD, EYES, EARS, NOSE AND THROAT: [No change in vision. No ear pain or discharge. No sore throat.] CARDIOVASCULAR: [No chest pain or shortness of breath.] RESPIRATORY: [No cough, wheezing, or hemoptysis.] GASTROINTESTINAL: [No nausea, vomiting, diarrhea or constipation. No rectal bleeding.] GENITOURINARY: [No dysuria, frequency, or change in urination.] MUSCULOSKELETAL: [(+) joint pain or muscle swelling or pain. (+) neck or back pain.] SKIN AND BREASTS: [No rash or easy bruising.] NEUROLOGIC: [No headache, vertigo, loss of consciousness, or loss of sensation.] PSYCHIATRIC: [No depression or anxiety.] ENDOCRINE: [No increased thirst. No abnormal weight change.] HEMATOLOGIC/LYMPHATIC: [No anemia, easy bleeding, or history of blood clots.] ALLERGIC/IMMUNOLOGIC: [No hives or skin allergy. No latex allergy.] GENERAL: [The patient is awake, alert, and fully oriented, in no acute distress. ] HEAD: [Normal with no signs of trauma.] EYES: [Pupils equal, round and reactive to light, extraocular movements intact, sclera anicteric, conjunctiva clear.] ENT: [Ears normal, nares patent, oropharynx clear without exudates. Moist mucous membranes.] NECK: [Normal range of motion, supple without lymphadenopathy, JVD, or masses.] LUNGS: [Breath sounds equal, clear to auscultation bilaterally. No wheezes, and no crackles.] HEART: [Regular rate and rhythm, S1 and S2 with murmur, rub.] ABDOMEN: [Soft, nontender, normoactive bowel sounds. No guarding, no rebound. No masses.] EXTREMITIES: [Normal range of motion, no edema. No clubbing or cyanosis. No cords, erythema, or tenderness.] NEUROLOGICAL: [Cranial nerves II through XII grossly intact. Normal speech, normal gait.] PSYCH: [Normal mood, normal affect.] NECK: [wound cervical posteriorly draining serosanguineous fluid, no erythema noted, SKIN: Otherwise normal turgor, no rashes or lesions noted.] Past History - Past Medical History Allergies/Adverse Reactions: Allergies Allergy/AdvReac Type Severity Reaction Status Date / Time No Known Allergies Allergy Verified 12/30/18 15:15 Home Medications: Ambulatory Orders Acetaminophen/Caffeine/Butalb [Fioricet -] 1 tablet PO PRN PRN 11/26/18 Carisoprodol [Soma] 350 mg PO PRN PRN 11/26/18 Cyclosporine [Restasis] 1 each OP PRN PRN 11/26/18 Empagliflozin [Jardiance] 10 mg PO DAILY 11/26/18 Fenofibrate Nanocrystallized [Fenofibrate] 145 mg PO DAILY 11/26/18 Gabapentin 800 mg PO TID 11/26/18 Lansoprazole [Prevacid] 15 mg PO DAILY 11/26/18 Liraglutide [Victoza -] 0.6 mg SQ DAILY@0700 11/26/18 Oxycodone HCl/Acetaminophen [Percocet 10-325 mg Tablet] 1 each PO PRN PRN Pioglitazone HCl [Actos] 30 mg PO DAILY 11/26/18 Rosuvastatin [Crestor -] 20 mg PO DAILY 11/26/18 Cyclobenzaprine HCl [Flexeril -] 10 mg PO HS #28 tablet 11/27/18 Docusate Sodium [Colace -] 100 mg PO TID #30 capsule 11/27/18 Anemia: No Asthma: No Cancer: No Cardiac Disorders: No CVA: No COPD: No CHF: No Dementia: No Diabetes: Yes (type 2) GI Disorders: No Disorders: No HTN: No Hypercholesterolemia: No Liver Disease: No Seizures: No Thyroid Disease: No - Surgical History Abdominal Surgery: Yes (hernia) Neurologic Surgery: Yes (corpectomy) Orthopedic Surgery: Yes (rotator cuff/arthroscopy) - Psycho Social/Smoking Cessation Hx Smoking History: Current every day smoker Have you smoked in the past 12 months: Yes Number of Cigarettes Smoked Daily: 20 Information on smoking cessation initiated: No 'Breaking Loose' booklet given: 11/26/18 Hx Alcohol Use: No Drug/Substance Use Hx: Yes (daily) Substance Use Type: Marijuana Hx Substance Use Treatment: No *Physical Exam - Vital Signs Last Vital Signs Temp Pulse Resp BP Pulse Ox 98.3 F 91 H 18 159/84 99 12/30/18 15:11 12/30/18 15:11 12/30/18 15:11 12/30/18 15:11 12/30/18 15:11 ED Treatment Course - LABORATORY CBC & Chemistry Diagram: 12/30/18 18:44 12/30/18 18:44 Medical Decision Making - Medical Decision Making 12/30/18 16:43 Patient is a 68 year old male with h/o chronic neck pain due to spondylolysis, DM type II, HLD, HTN, hernia repair, underwent posterior fusion cervical spinal surg 11/20/18 c/o neck pain which stared 4 days ago. States was walking and heard a pop in the neck, then his walking partner noticed blood running down his neck. States he visited Dr. Victoria 3 days ago and noted that the wound was dehisced. Recommended to hold out ontill this week with the pain meds and will try to schedule for surgery. States his pain 11/15 and has had no relief from the oxycodone 30mg po. Denies fever, chills, nausea, vomiting. Status post wound dehiscence for surgical procedure in the a.m. Case was discussed with Dr. Victoria recommend admission and preop labs Ancef 2 g IV Hospitalist Aleksandra to admit 12/30/18 19:52 EKG SR rate 74, normal axis, no ST-T wave changes Chest x-ray no acute infiltrate Labs with no acute findings Discussed with resident will admit. Discharge - Discharge Information Problems reviewed: Yes Clinical Impression/Diagnosis: Wound dehiscence, surgical Qualifiers: Encounter type: initial encounter Qualified Code(s): T81.31XA - Disruption of external operation (surgical) wound, not elsewhere classified, initial encounter Condition: Stable - Admission Yes - Follow up/Referral - Patient Discharge Instructions - Post Discharge Activity
[2018-12-30] MEDS ORDERED: morphine CARPU-JECT 4 MG/1 ML DISP.SYRIN IVPUSH ONE (17:18)
[2018-12-30] MEDS ORDERED: ceFAZolin 2 GRAM PREMIX BAG IVPB ONE (17:18)
[2018-12-30] MEDS ORDERED: morphine SULFATE 4 MG/ML VIAL ONE (18:56)
[2018-12-30] MEDS ORDERED: CEFAZOLIN 1 GM/D5W 2 GM/100 ML BAG ONE (18:56)
[2018-12-30 19:03] LABS: BASO % 0.9 % (0-2.0); EOS % 3.5 % (0-4.5); HEMATOCRIT 38.4 % (35.4-49); HEMOGLOBIN 13.1 GM/dL (11.7-16.9); LYMPH % 23.2 % (8-40); MCH 30.3 pg (25.7-33.7); MEAN PLT VOLUME 9.9 fl (7.5-11.1); NEUT % 63.4 % (42.8-82.8); PLATELET COUNT 143 K/MM3 (134-434); RBC 4.32 M/mm3 (4.00-5.60); RDW 14.1 % (11.9-15.9); WHITE BLOOD COUNT 7.3 K/mm3 (4.0-10.0)
[2018-12-30 19:41] LABS: ALBUMIN 3.5 g/dl (3.4-5.0); BILIRUBIN,TOTAL 0.2 mg/dL (0.2-1); BLOOD UREA NITROGEN 32.2 mg/dL (7-18); CALCIUM 8.8 mg/dL (8.5-10.1); CREATININE 1.4 mg/dL (0.55-1.3); POTASSIUM 3.9 mmol/L (3.5-5.1); TOT PROT 6.3 g/dl (6.4-8.2)
--- NOTE | 2018-12-30 19:46 | PN ---
Teaching Attending Note Name of Resident: Isacc Jefferson ATTENDING PHYSICIAN STATEMENT I saw and evaluated the patient. I reviewed the resident's note and discussed the case with the resident. I agree with the resident's findings and plan as documented. SUBJECTIVE: Patient is a 68 year old man with PMH of Chronic neck pain due to spondylolysis , NIDDM, Tobacco use, Marijuana use, HLD, HTN, Hernia repair, who underwent C3- C7 posterior fusion cervical spinal surgery (11/20/18), presents with complaint of neck pain which started 4 days ago. States was walking and heard a pop in the neck, then his walking partner noticed blood running down his neck. States he visited Dr. Victoria 3 days ago and noted that the wound was dehisced. Recommended to hold out until this week with the pain medications and will try to schedule for surgery. States his pain is 10/10 and has had no relief from the oxycodone 30 mg po. Denies fever, chills, nausea, vomiting, SOB, chest pain , abdominal pain, diarrhea. Denies alcohol abuse or any other illicit drug use. Has FH of DM, HTN, Cancer of unknown type in his mother and father had dementia. OBJECTIVE: Alert Vital Signs Period Temp Pulse Resp BP Sys/Champion Pulse Ox Last 24 Hr 98.3 F 91 18 159/84 99 HEENT: No Jaundice, eye redness or discharge, PERRLA, EOMI. Normocephalic, atraumatic. External ears are normal and hearing is grossly intact. No nasal discharge. Neck: Supple, nontender. Surgical wound at back of neck with packing and draining serosanguineous fluid; no erythema. No palpable adenopathy or thyromegaly. No JVD Chest: Good effort. Clear to auscultation and percussion. Heart: Regular. No S3, rub or murmur Abdomen: Not distended, soft, nontender and no HSM. No rebound or guarding. Normal bowel sounds. Ext: Peripheral pulses intact. No leg edema. Skin: Warm and dry. No petechiae, rash or ecchymosis. Neuro: Alert. Oriented x3. CN 2-12 grossly intact. Sensation grossly intact in all four extremities and DTR are symmetric. Psych: Appropriate mood and affect. Good insight. Home Medications Medication Instructions Recorded Acetaminophen/Caffeine/Butalb 1 tablet PO PRN PRN 10/21/19 [Fioricet -] Carisoprodol [Soma] 350 mg PO PRN PRN 11/26/18 Cyclosporine [Restasis] 1 each OP PRN PRN 11/26/18 Empagliflozin [Jardiance] 10 mg PO DAILY 11/26/18 Fenofibrate Nanocrystallized 145 mg PO DAILY 11/26/18 [Fenofibrate] Gabapentin 800 mg PO TID 11/26/18 Lansoprazole [Prevacid] 15 mg PO DAILY 11/26/18 Liraglutide [Victoza -] 0.6 mg SQ DAILY@0700 11/26/18 Oxycodone HCl/Acetaminophen 1 each PO PRN PRN 11/26/18 [Percocet 10-325 mg Tablet] Pioglitazone HCl [Actos] 30 mg PO DAILY 11/26/18 Rosuvastatin [Crestor -] 20 mg PO DAILY 11/26/18 Cyclobenzaprine HCl [Flexeril -] 10 mg PO HS #28 tablet 11/27/18 Docusate Sodium [Colace -] 100 mg PO TID #30 capsule 11/27/18 Abnormal Lab Results 12/30/18 18:44 Chloride 108 H Anion Gap 5 L BUN 32.2 H Creatinine 1.4 H Random Glucose 127 H AST 9 L Alkaline Phosphatase 40 L Total Protein 6.3 L ASSESSMENT AND PLAN: 1. Surgical debridement and Closure of cervical spine fusion wound - Patient will be kept NPO for planned surgery. EKG shows NSR with no ischemic changes and no acute abnormality on CXR. Use tylenol for pain control. Surgery consulted and patient started on Cefazolin by ER staff. Will continue comprehensive care for all of patients comorbid conditions. 2. DM For now, we will hold the home diabetes drugs and implement sliding scale insulin regimen. Provide comprehensive diabetes care with patient teaching and counseling about the importance of adherence to prescribed diabetes regimen, euglycemia, eye care and foot care. 3. Tobacco Use Counseled on risks associated with tobacco use. We will provide patient all the necessary assistance to facilitate smoking cessation and prescribe Nicotine patch. 4. JAMA - Cause unclear. Has risk factors for CKD. Will get urinalysis, kidney sonogram, CPK, hydrate gently and monitor urine output. Avoid nephrotoxic agents such as NSAIDS, aminoglycosides, contrast dyes and certain Alternative medicine products. 5. Uncontrolled hypertension - Not on any outpatient antihypertensive drug. Needs to be on an ACEI or ARB. Revise regimen to ensure [id number] excellent BP control and pediatric genetic counselor patient on the injurious effects of uncontrolled hypertension. Nonpharmacologic measures to control hypertension like weight loss, salt restriction and exercise discussed. Importance of adherence to treatment regimen and attainment of normotension emphasized. 6. DVT prophylaxis - SCD since he is going for surgery 7. Advance directives - Full code
[2018-12-30] MEDS ORDERED: SODIUM CHLORIDE 0.9% 500 ML INFUS.BAG IV ONE (19:49)
[2018-12-30 19:56] LABS: INR 1.08 (0.83-1.09); PROTHROMBIN TIME (PATIENT) 12.8 SEC (9.7-13.0)
[2018-12-30 19:58] LABS: ACTIVATED PTT 36.3 SECONDS (25.2-36.5)
--- NOTE | 2018-12-30 20:20 | HP ---
CHIEF COMPLAINT: neck pain PCP: Dr. Lo Endo: Dr. Shekhar Shaw HISTORY OF PRESENT ILLNESS: 68 y/o male PMH spondylolysis, DMII, HLD, and HTN c/o neck pain. Pt is s/p cervical spine C3-C7 posterior fusion on 26 Nov 2018. On 27 Dec 2018 he reports feeling a pop from the back of his neck while sitting at home with a friend. He denies performing any activity such as heavy lifting, recent illness, and sick contacts. He remains an active smoker 1/4 ppd. He does not check his blood sugar home. The pt reports extensive surgical history, including many back surgeries. The surgical site at the time of the popping sensation was followed by bleeding but no pain. The pt reports he has chronic neck pain but the surgical site is only tender when packing is changed. He denies NVFD and chills. ER course was notable for: (1) Ancef 2g IV administered Recent Travel: Denies PAST MEDICAL HISTORY: Spondylolysis, DMII, HLD, and HTN PAST SURGICAL HISTORY: (2015) spinal fusion, (1998) L4/L5 ?laminectomy Social History: Smokin/4 ppd Alcohol: social Drugs: denies Allergies: No Known Allergies Allergy (Verified 12/30/18 15:15) HOME MEDICATIONS: Home Medications Medication Instructions Recorded Acetaminophen/Caffeine/Butalb 1 tablet PO PRN PRN 11/26/18 [Fioricet -] Carisoprodol [Soma] 350 mg PO PRN PRN 11/26/18 Cyclosporine [Restasis] 1 each OP PRN PRN 11/26/18 Empagliflozin [Jardiance] 10 mg PO DAILY 11/26/18 Fenofibrate Nanocrystallized 145 mg PO DAILY 11/26/18 [Fenofibrate] Gabapentin 800 mg PO TID 11/26/18 Lansoprazole [Prevacid] 15 mg PO DAILY 11/26/18 Liraglutide [Victoza -] 0.6 mg SQ DAILY@0700 11/26/18 Oxycodone HCl/Acetaminophen 1 each PO PRN PRN 11/26/18 [Percocet 10-325 mg Tablet] Pioglitazone HCl [Actos] 30 mg PO DAILY 11/26/18 Rosuvastatin [Crestor -] 20 mg PO DAILY 11/26/18 Cyclobenzaprine HCl [Flexeril -] 10 mg PO HS #28 tablet 11/27/18 Docusate Sodium [Colace -] 100 mg PO TID #30 capsule 11/27/18 REVIEW OF SYSTEMS CONSTITUTIONAL: Absent: fever, chills, diaphoresis, generalized weakness, malaise, loss of appetite, weight change HEENT: Absent: rhinorrhea, nasal congestion, throat pain, throat swelling, difficulty swallowing, mouth swelling, ear pain, eye pain, visual changes CARDIOVASCULAR: Absent: chest pain, syncope, palpitations, irregular heart rate, lightheadedness , peripheral edema RESPIRATORY: Absent: cough, shortness of breath, dyspnea with exertion, orthopnea, wheezing, stridor, hemoptysis GASTROINTESTINAL: Absent: abdominal pain, abdominal distension, nausea, vomiting, diarrhea, constipation, melena, hematochezia GENITOURINARY: Absent: dysuria, frequency, urgency, hesitancy, hematuria, flank pain, genital pain MUSCULOSKELETAL: Absent: myalgia, arthralgia, joint swelling, back pain, neck pain SKIN: Absent: rash, itching, pallor HEMATOLOGIC/IMMUNOLOGIC: Absent: easy bleeding, easy bruising, lymphadenopathy, frequent infections ENDOCRINE: Absent: unexplained weight gain, unexplained weight loss, heat intolerance, cold intolerance NEUROLOGIC: Absent: headache, focal weakness or paresthesias, dizziness, unsteady gait, seizure, mental status changes, bladder or bowel incontinence PSYCHIATRIC: Absent: anxiety, depression, suicidal or homicidal ideation, hallucinations. PHYSICAL EXAMINATION Vital Signs - 24 hr 12/30/18 12/30/18 15:11 19:45 Temperature 98.3 F Pulse Rate 91 H Pulse Rate [ 73 Left Radial] Respiratory 18 18 Rate Blood Pressure 159/84 Blood Pressure 102/65 [Right Arm] O2 Sat by Pulse 99 97 Oximetry (%) GENERAL: AOx3, in no acute distress, very talkative; mus re-orient regularly HEAD: Normocephalic. 6x3cm surgical wound filled with iodoform tape with NO erythema or discharge but warm to touch. EYES: LILI, EOMI, conjunctiva clear. ENT: Ears normal, nares patent, oropharynx clear without exudates. Moist mucous membranes. NECK: Normal range of motion, supple without lymphadenopathy, JVD, or masses. LUNGS: CTAB. No wheezes, and no crackles. No accessory muscle use. HEART: RRR s1 s2 ABDOMEN: Soft, BS present in all 4 quadrants, non-distended, no JVD, MUSCULOSKELETAL: No bony deformities or tenderness. No CVA tenderness. UPPER EXTREMITIES: 2+ pulses, warm, well-perfused. No cyanosis. No clubbing. No peripheral edema. LOWER EXTREMITIES: 2+ pulses, warm, well-perfused. No calf tenderness. No peripheral edema. NEUROLOGICAL: No focal deficits. Cranial nerves II-XII intact. Normal speech. Gait not appreciated. PSYCHIATRIC: Cooperative. Good eye contact. Appropriate mood and affect. SKIN: Warm, dry, normal turgor, no rashes or lesions noted, normal capillary refill. Laboratory Results - last 24 hr 12/30/18 12/30/18 12/30/18 18:44 18:44 18:44 WBC 7.3 RBC 4.32 Hgb 13.1 Hct 38.4 MCV 89.0 MCH 30.3 MCHC 34.0 RDW 14.1 Plt Count 143 MPV 9.9 D Absolute Neuts (auto) 4.6 Neutrophils % 63.4 Lymphocytes % 23.2 Monocytes % 9.0 Eosinophils % 3.5 Basophils % 0.9 Nucleated RBC % 0 PT with INR 12.80 INR 1.08 PTT (Actin FS) 36.3 Sodium 139 Potassium 3.9 Chloride 108 H Carbon Dioxide 25 Anion Gap 5 L BUN 32.2 H Creatinine 1.4 H Est GFR (CKD-EPI)AfAm 58.99 Est GFR (CKD-EPI)NonAf 50.90 Random Glucose 127 H Calcium 8.8 Total Bilirubin 0.2 AST 9 L ALT 13 Alkaline Phosphatase 40 L Total Protein 6.3 L Albumin 3.5 ASSESSMENT/PLAN: 68 y/o male PMH spondylolysis, DMII, HLD, and HTN c/o neck pain and impaired wound healing. # Impaired wound healing/dehiscence - NPO for surgical intervention - Maintain clean wound and dressing - ISS - Pain control: oxycodone 10mg q6h PRN # JAMA - LR - UA # DM - ISS #F/E/N - LR - Cont. to monitor - NPO # DVT prophylaxis - SCD # Disposition - Admit to med/surg Isacc Jefferson MD Visit type - Emergency Visit Emergency Visit: Yes ED Registration Date: 12/30/18 Care time: The patient presented to the Emergency Department on the above date and was hospitalized for further evaluation of their emergent condition. - New Patient This patient is new to me today: Yes Date on this admission: 12/31/18 - Critical Care Critical Care patient: No ATTENDING PHYSICIAN STATEMENT I saw and evaluated the patient. I reviewed the resident's note and discussed the case with the resident. I agree with the resident's findings and plan as documented. SUBJECTIVE: OBJECTIVE: ASSESSMENT AND PLAN:
[2018-12-30] MEDS ORDERED: ACETAMINOPHEN 325 MG TABLET (FP) PO PRN (20:26)
[2018-12-30] MEDS: LACTATED RINGERS SOLUTION 1,000 ML IV SCH (20:40)
[2018-12-30] MEDS: INSULIN SLIDING SCALE (NOVOLOG) 1 VIAL SQ SCH (22:08)
[2018-12-30] MEDS ORDERED: PATIENT'S OWN MEDICATION (NON-FORMULARY) (Cyclosporine [Restasis] 1 EACH) OP PRN (23:51)
[2018-12-30] MEDS ORDERED: oxyCODONE HCL 5 MG TABLET ONE (23:57)
[2018-12-31] MEDS: oxyCODONE HCL 5 MG TABLET PO PRN ×2 (00:02→19:02)
[2018-12-31 03:57] LABS: URINE APPEARANCE CLEAR; URINE BILIRUBIN NEGATIVE (NEGATIVE); URINE COLOR YELLOW; URINE GLUCOSE (UA) 3+ (NEGATIVE); URINE KETONE NEGATIVE (NEGATIVE); URINE LEUK ESTERASE NEGATIVE (NEGATIVE); URINE NITRITE NEGATIVE (NEGATIVE); URINE PROTEIN NEGATIVE (NEGATIVE); URINE UROBILINOGEN 0.2 mg/dL (0.2-1.0)
[2018-12-31] MEDS ORDERED: GABAPENTIN 100 MG CAPSULE (FP) ONE (06:11)
[2018-12-31] MEDS ORDERED: DOCUSATE SODIUM 100 MG CAPSULE (FP) PO ONE (06:11)
[2018-12-31] MEDS: GABAPENTIN 400 MG CAPSULE (FP) PO SCH ×2 (06:16→22:41)
[2018-12-31] MEDS: DOCUSATE SODIUM 100 MG CAPSULE (FP) PO SCH ×2 (06:16→22:41)
[2018-12-31 07:48] LABS: HEMATOCRIT 36.8 % (35.4-49); HEMOGLOBIN 12.5 GM/dL (11.7-16.9); MEAN CELL VOLUME 88.3 fl (80-96); MEAN PLT VOLUME 10.7 fl (7.5-11.1); PLATELET COUNT 138 K/MM3 (134-434); RBC 4.17 M/mm3 (4.00-5.60); RDW 14.1 % (11.9-15.9); WHITE BLOOD COUNT 5.6 K/mm3 (4.0-10.0)
[2018-12-31] MEDS ORDERED: oxyCODONE HCL 5 MG TABLET ONE (08:19)
[2018-12-31 08:23] LABS: BLOOD UREA NITROGEN 24.5 mg/dL (7-18); CREATININE 1.3 mg/dL (0.55-1.3); MAGNESIUM 1.9 mg/dL (1.8-2.4); PHOSPHOROUS 3.2 mg/dL (2.5-4.9); POTASSIUM 4.1 mmol/L (3.5-5.1)
[2018-12-31] MEDS: INSULIN SLIDING SCALE (NOVOLOG) 1 VIAL SQ SCH ×2 (08:28→22:42)
--- NOTE | 2018-12-31 08:47 | CON.ORTH ---
Consult Consult Specialty:: Orthopedics Referred by:: ER Reason for Consultation:: Wound dehissence post neck 3 weeks status post C3 to C7 Instrumented posterolateral arthrodesis - History of Present Illness Chief Complaint: Draining post neck wound History of Present Illness: As above Operation performed 3weeks ago Underwent a 2 level midcervical corpectomy with cage and anterior arthrodesis for cervical myelopathy Marked neurological improvement with this procedure but developed adjacent level intractable facet arthropathic pain and increasing stiffness of thew neck..Faied conservative treatment resulted in the need for the posterior cervical fusion performed recently complicated by this wound dehisscence Diabetic Moderate control - History Source History Provided By: Patient Limitations to Obtaining History: No Limitations - Past Medical History HOSE CEMENTER: Yes: Alzheimer's, CVA, Dementia, Migraine, Multiple Sclerosis, Peripheral Neuropathy, Parkinson's, Seizure, Syncope, TIA, Vertigo, Other Cardio/Vascular: Yes: AFIB, Aneurysm, Aortic Insufficiency, Aortic Stenosis, CAD , CHF, Deep Vein Thrombosis, HTN, Hyperlipdemia, MD, Mitral Insufficiency, Mitral Stenosis, Murmur, Pulmonary Hypertension, Other Pulmonary: Yes: Asthma, Bronchitis, Cancer, COPD, O2 Dependent, Pneumonia, Previously Intubated, Pulmonary Embolus, Pulmonary Fibrosis, Sleep Apnea, Other Psych: Yes: Anxiety Musculoskeletal: Yes: Other (Previous cevical spinal stenosis with myelopathy) - Past Surgical History Past Surgical History: Yes: None, AAA Repair, AICD, Amputation, Appendectomy, Arthrosocopy, AV Fistula/Graft, Bariatric Surgery, Breast Biopsy, Bypass, CABG, Carotid Endarterectomy, Cataract Removal, Cholecystectomy, Colectomy, Colonoscopy, Colostomy, Craniotomy, , Cystectomy, Hernia Repair, Hysterectomy, Ileal Conduit, Ileosotomy, Joint Replacement, Kidney Transplant, Laminectomy, Liver Transplant, Mastectomy, Nephrectomy, Oopherectomy, Orchiectomy, Permanent Pacemaker, Prostatectomy, Splenectomy, Stent, Thoracotomy , TURP, Tonsillectomy, Tubal Ligation, Upper Endoscopy, Valve Replacement, Vasectomy, Vein Stripping/Ligation - Alcohol/Substance Use Hx Alcohol Use: No History of Substance Use: reports: None, Cocaine, Heroin, Marijuana, Prescription, Tranquilizers Date of Last Use: 12/28/18 - Smoking History Smoking history: Never smoked Have you smoked in the past 12 months: Yes Aproximately how many cigarettes per day: 20 - Social History Usual Living Arrangement: Alone ADL: Independent Place of : [facility] Home Medications - Allergies Allergies/Adverse Reactions: Allergies Allergy/AdvReac Type Severity Reaction Status Date / Time No Known Allergies Allergy Verified 12/30/18 15:15 - Home Medications Home Medications: Ambulatory Orders Acetaminophen/Caffeine/Butalb [Fioricet -] 1 tablet PO PRN PRN 11/26/18 Carisoprodol [Soma] 350 mg PO PRN PRN 11/26/18 Cyclosporine [Restasis] 1 each OP PRN PRN 11/26/18 Empagliflozin [Jardiance] 10 mg PO DAILY 11/26/18 Fenofibrate Nanocrystallized [Fenofibrate] 145 mg PO DAILY 11/26/18 Gabapentin 800 mg PO TID 11/26/18 Lansoprazole [Prevacid] 15 mg PO DAILY 11/26/18 Liraglutide [Victoza -] 0.6 mg SQ DAILY@0700 11/26/18 Oxycodone HCl/Acetaminophen [Percocet 10-325 mg Tablet] 1 each PO PRN PRN Pioglitazone HCl [Actos] 30 mg PO DAILY 11/26/18 Rosuvastatin [Crestor -] 20 mg PO DAILY 11/26/18 Cyclobenzaprine HCl [Flexeril -] 10 mg PO HS #28 tablet 11/27/18 Docusate Sodium [Colace -] 100 mg PO TID #30 capsule 11/27/18 Physical Exam for Ortho Vital Signs: Vital Signs Temperature 97.1 F L 12/31/18 00:41 Pulse Rate 66 12/31/18 05:45 Respiratory Rate 18 12/31/18 05:45 Blood Pressure 116/68 12/31/18 05:45 O2 Sat by Pulse Oximetry (%) 99 12/31/18 05:45 Labs: CBC, BMP 12/31/18 07:05 INR, PTT INR 1.08 (0.83-1.09) 12/30/18 18:44
[2018-12-31] MEDS ORDERED: SUCCINYLCHOLINE CHLORIDE 200 MG/10 ML SYRINGE ONE (10:20)
[2018-12-31] MEDS ORDERED: DEXAMETHASONE SOD PHOSPHATE 4 MG/1 ML VIAL ONE (10:20)
[2018-12-31] MEDS ORDERED: MIDAZOLAM HCL 2 MG/2 ML SINGLE DOSE VIAL ONE ×3 (10:20→10:47)
[2018-12-31] MEDS ORDERED: EPHEDRINE SULFATE/0.9% NACL/PF 50 MG/10 ML SYRINGE NR ONE (10:20)
[2018-12-31] MEDS ORDERED: ROCURONIUM BROMIDE 50 MG/5 ML SYRINGE ONE (10:21)
[2018-12-31] MEDS ORDERED: PROPOFOL 20 ML ONE ×2 (10:21→10:25)
[2018-12-31] MEDS ORDERED: ONDANSETRON 4 MG/2 ML VIAL IVPUSH PRN (10:42)
[2018-12-31] MEDS ORDERED: HYDROmorphone HCl 2 MG/ML VIAL IVPUSH PRN ×2 (10:43→10:44)
[2018-12-31] MEDS ORDERED: fentaNYL CITRATE 250 MCG/5 ML VIAL ONE (10:46)
[2018-12-31] MEDS ORDERED: ACETAMINOPHEN INJECTION 100 ML IVPB ONE (10:48)
--- NOTE | 2018-12-31 11:10 | PN ---
Progress Note (short form) - Note Progress Note: 68M s/p C3-C7 posterior instrumented spinal fusion (11/26/2018) now p/w posterior cervical spinal wound dehiscence. -H&P reviewed. -Pt. seen & examined in pre-op holding area. -Risks, benefits, and alternatives of non-surgical VS surgical management discussed with & understood by patient. -Patient consented for I&D posterior c-spine; possible application of wound vac ; witnessed. -Pt. admitted to medical hospitalist service. Ruy Victoria MD (Orthopaedic Surgery).
--- NOTE | 2018-12-31 11:18 | PN ---
Progress Note (short form) - Note Progress Note: 68M s/p C3-C7 posterior instrumented spinal fusion (11/26/2018) now s/p I&D posterior cervical spine with application of wound vac POD #0. Wound Dimensions: Length: 3". Width: 1". Depth: 1". -Maintain head of bed 30-45 degrees. -Pain medication: per anaesthesia team; oral meds (oxycodone preferred), no JOURNEYMAN GLAZIER ; NO NSAID's. -Maintain woundvac @ 125mmHg negative pressure therapy. -f/u OR wound cultures x 3 (aerobic, anaerobic, AFB, fungal). -Ancef 1g IV q8h standing until OR culture speciation returns. -DVT PPx: -Mechanical only: ANA's, SCD's. -f/u AM labs. -Incentive spirometry. -PT/OT/Rehab, OOB. -PWB B/L UE < 5lbs. -WBAT B/L LE. -f/u TOV (8 hours max). -Keep dressing clean & dry. -No heavy lifting (>5 lbs), bending or twisting x 6 months post op. -Start with soft diet; advance diet as tolerated. -B/L UE & LE NV checks. -Care per primary medical hospitalist team. -Discharge planning: plan to repeat I&D c-spine either 48-96 hrs. Juan Manuel Victoria MD (Orthopaedic Surgery).
--- NOTE | 2018-12-31 11:29 | OP ---
Operative Note - Note: Operative Date: 12/31/18 Pre-Operative Diagnosis: Posterior c-spine wound dehiscence Operation: 1. Incision, irrigation, drainage and debridement posterior c-spine. 2. Inspection of fusion mass. 3. Application of wound vac Findings: Wound Dimensions: Length: 3". Width: 1". Depth: 1". Post-Operative Diagnosis: Same as Pre-op Surgeon: Ruy Victoria Anesthesiologist/MARKETING COMMUNICATIONS ASSISTANT: Zuly Keller Anesthesia: General Estimated Blood Loss (mls): 0 Drains & Tubes with Location: WoundVac applied Fluid Volume Replaced (mls): 500 (Crystalloid) Operative Report Dictated: Yes
[2018-12-31] MEDS ORDERED: VANCOMYCIN 1,000 MG VIAL (RESTRICTED TO ID ONLY) ONE (11:41)
[2018-12-31] MEDS ORDERED: ceFAZolin SODIUM 1 GM VIAL ONE ×3 (11:41→23:48)
[2018-12-31] MEDS ORDERED: SODIUM CHLORIDE 0.9% P/F 10 ML VIAL IJ ONE (11:41)
[2018-12-31] MEDS ORDERED: ceFAZolin SODIUM 1 GM VIAL IVPB ONE (12:22)
[2018-12-31] MEDS ORDERED: VANCOMYCIN 1,000 MG VIAL (RESTRICTED TO ID ONLY) IVPB ONE (12:22)
[2018-12-31] MEDS ORDERED: BENZOIN TINCTURE SWABSTICK TP ONE (12:35)
[2018-12-31] MEDS ORDERED: HYDROmorphone HCl 2 MG/ML VIAL ONE (14:04)
[2018-12-31] MEDS ORDERED: HYDROmorphone HCl 2 MG/ML VIAL IVPUSH ONE ×2 (14:06→14:35)
--- NOTE | 2018-12-31 15:11 | OP ---
Date of Operation: 12/31/2018 Surgeon: Ruy Victoria MD Network Infrastructure Architect: None. Pre-Operative Diagnosis: Posterior cervical spine wound dehiscence. Post-Operative Diagnosis: Posterior cervical spine wound dehiscence. Surgical Procedure: 1. Incision, drainage, debridement, and irrigation deep neck wound abscess. ( [id number]) 2. Application of negative pressure therapy wound vac ([id number]) Anesthesia: General endotracheal tube anesthesia. Position: Supine. Incision: Right oblique anterior. Estimated Blood Loss: Minimal. Intravenous Fluid: 500cc crystalloid. Specimens: 3 x culture sticks. Drains: 1 x deep HemoVac. Complications: None. Urine Output: See anesthesia record. Bacteriology: None. Closure: Application of wound vac. INDICATIONS: The patient is a 68-year-old male who was indicated for an I&D of his posterior cervical spine wound to evacuate post-op contamination. The patient underwent index C3-C7 posterior instrumented fusion surgery 2018. The patient was identified in the holding area by his arm band. A long discussion was held with the patient regarding the risks, benefits, and alternatives of the above-named procedure. The risks include, but are not limited to: Pain, bleeding, infection, damage to surrounding structures (including nerves, blood vessels, skin, ligaments, tendons, and bone), dysphagia, dysphonia, nerve palsy, wound complications, pseudarthrosis, failure of fusion, failure of hardware/implants/reduction, need for further surgery, blood clots, myocardial infarction, pulmonary embolism, cerebrovascular event, anesthesia complications, neurological injury, loss of function, and . Benefits as mentioned above. Alternatives include no surgery. All questions were answered. The patient understood and agreed to the procedure. Informed consent was obtained, witnessed, and verified. The patient was taken to the operating room after being seen by the anesthesia and nursing staff. PROCEDURE: The patient was brought into the operating room, placed on the OR table and secured with a safety strap. Consent and the operative site was again verified with the patient and nursing and anesthesia staff. Anesthesia was then administered without complications including 2g of IV Ancef and 1g IV Vancomycin. A time-out was then done led by me, the attending surgeon. The patient was then safely placed in a prone position with all bony prominences well-padded on a Mason frame with strict attention paid to maintenance of sagittal vertical alignment. The arms were placed on well-padded arm boards and maintained with standard forward flexion, abduction, and external rotation of the shoulders, and flexion of the elbows. Special attention was given to the safe positioning of the cervical spine. The patients eyes, and belly were all free. The table was placed in 5 degrees of reverse Trendelenburg position to avoid ophthalmic vein congestion. The dehisced wound site was then prepped and draped in the standard sterile fashion using betadine prep and scrub, wiped off with alcohol, and Duraprep applied. Pre-operative imaging was available for intra-operative evaluation. Time-out was again done, and the case began. The wound was contaminated with purulent slough. There was yellow transudate (not exudate) seen. Distal hardware was exposed. The wound dimensions were measured as follows: Length: 3". Width: 1". Depth: 1". The wound was irrigated with 3L normal saline solution and mechanically debrided using a sponge with betadine soap. 3 deep culture swab sticks were used and sent to the lab. There was no active bleeding. With, hemostasis was assured, a wound vac was applied with 125mmHg negative pressure therapy. Sponge and needle counts were correct at the end of the case, and I, the attending surgeon, was present and scrubbed throughout the case. The patient was then extubated by the anesthesia staff without incident or complications and was then transferred to the recovery room in stable condition having tolerated the procedure well. Ruy Victoria MD. [id number] MTDD
[2018-12-31] MEDS ORDERED: HALOPERIDOL LACTATE 5 MG/ML IM ONE (15:44)
--- NOTE | 2018-12-31 15:59 | EKG ---
Test Reason : Blood Pressure : / mmHG Vent. Rate : 074 BPM Atrial Rate : 074 BPM P-R Int : 150 ms QRS Dur : 096 ms QT Int : 388 ms P-R-T Axes : 080 014 067 degrees QTc Int : 430 ms NORMAL SINUS RHYTHM NORMAL ECG NO PREVIOUS ECGS AVAILABLE Confirmed by EDNA ROBERTS MD ([id number]) on 12/31/2018 3:59:28 PM Referred By: Confirmed By:EDNA ROBERTS MD
--- NOTE | 2018-12-31 17:15 | PN ---
Physical Exam: SUBJECTIVE: Patient seen and examined 68 y/o M, pmh of spondylolysis, DMII, HLD, and HTN c/o neck pain. Pt is s/p cervical spine C3-C7 posterior fusion on 11/26/18, presents with surgical wound dehiscence. Currently, pt is aggravated but otherwise in usual sate of health. C /o of neck pain. Denies f/c/n/v/d/sob/chest pain. OBJECTIVE: Vital Signs Period Temp Pulse Resp BP Sys/Champion Pulse Ox Last 24 Hr 97.1 F-98.4 F 64-93 12-25 102-153/55-90 96-100 GENERAL: AOx3, NAD, pt is aggravated HEAD: 6x3cm surgical wound w/ iodoform tape with No erythema or discharge but warm to touch. EYES: LILI, EOMI, conjunctiva clear. LUNGS: CTAB, No wheezes, and no crackles. HEART: RRR, no m/g/r ABDOMEN: Soft, BS present in all 4 quadrants, non-distended, no JVD, MUSCULOSKELETAL: No bony deformities or tenderness. No CVA tenderness. UPPER EXTREMITIES: 2+ pulses, warm, well-perfused. LOWER EXTREMITIES: 2+ pulses, warm, well-perfused. NEUROLOGICAL: No focal deficits. Cranial nerves II-XII intact. Normal speech. WBC 5.6 K/mm3 (4.0-10.0) 12/31/18 07:05 RBC 4.17 M/mm3 (4.00-5.60) 12/31/18 07:05 Hgb 12.5 GM/dL (11.7-16.9) 12/31/18 07:05 Hct 36.8 % (35.4-49) 12/31/18 07:05 MCV 88.3 fl (80-96) 12/31/18 07:05 MCH 30.0 pg (25.7-33.7) 12/31/18 07:05 MCHC 34.0 g/dl (32.0-35.9) 12/31/18 07:05 RDW 14.1 % (11.9-15.9) 12/31/18 07:05 Plt Count 138 K/MM3 (134-434) 12/31/18 07:05 MPV 10.7 fl (7.5-11.1) 12/31/18 07:05 Absolute Neuts (auto) 4.6 K/mm3 (1.5-8.0) 12/30/18 18:44 Neutrophils % 63.4 % (42.8-82.8) 12/30/18 18:44 Lymphocytes % 23.2 % (8-40) 12/30/18 18:44 Monocytes % 9.0 % (3.8-10.2) 12/30/18 18:44 Eosinophils % 3.5 % (0-4.5) 12/30/18 18:44 Basophils % 0.9 % (0-2.0) 12/30/18 18:44 Nucleated RBC % 0 % (0-0) 12/30/18 18:44 Sodium 136 mmol/L (136-145) 12/31/18 07:05 Potassium 4.1 mmol/L (3.5-5.1) 12/31/18 07:05 Chloride 107 mmol/L (98-107) 12/31/18 07:05 Carbon Dioxide 24 mmol/L (21-32) 12/31/18 07:05 Anion Gap 5 MMOL/L (8-16) L 12/31/18 07:05 BUN 24.5 mg/dL (7-18) H 12/31/18 07:05 Creatinine 1.3 mg/dL (0.55-1.3) 12/31/18 07:05 Est GFR (CKD-EPI)AfAm 64.52 12/31/18 07:05 Est GFR (CKD-EPI)NonAf 55.67 12/31/18 07:05 Random Glucose 96 mg/dL (74-106) 12/31/18 07:05 Calcium 9.0 mg/dL (8.5-10.1) 12/31/18 07:05 Phosphorus 3.2 mg/dL (2.5-4.9) 12/31/18 07:05 Magnesium 1.9 mg/dL (1.8-2.4) 12/31/18 07:05 Total Bilirubin 0.2 mg/dL (0.2-1) 12/30/18 18:44 AST 9 U/L (15-37) L 12/30/18 18:44 ALT 13 U/L (13-61) 12/30/18 18:44 Alkaline Phosphatase 40 U/L (45-117) L 12/30/18 18:44 Total Protein 6.3 g/dl (6.4-8.2) L 12/30/18 18:44 Albumin 3.5 g/dl (3.4-5.0) 12/30/18 18:44 Laboratory Results - last 24 hr Active Medications Current Medications Acetaminophen (Tylenol -) 650 mg PO Q6H PRN PRN Reason: PAIN LEVEL 1-5 Cyclobenzaprine HCl (Flexeril -) 10 mg PO HS [facility] Docusate Sodium (Colace -) 100 mg PO TID [facility] Last Admin: 12/31/18 06:16 Dose: 100 mg Fenofibric Acid (Trilipix -) 135 mg PO DAILY [facility] Gabapentin (Neurontin -) 800 mg PO TID [facility] Last Admin: 12/31/18 06:16 Dose: 800 mg Hydromorphone HCl (Dilaudid Vial -) 0.5 mg IVPUSH [id number] PRN PRN Reason: PAIN LEVEL 7 - 10 Hydromorphone HCl (Dilaudid Vial -) 0.25 mg IVPUSH [id number] PRN PRN Reason: PAIN LEVEL 4 - 6 Lactated Ringer's (Lactated Ringers Solution) 1,000 mls @ 100 mls/hr IV ASDIR [facility] Last Admin: 12/30/18 20:40 Dose: 100 mls/hr Lactated Ringer's (Lactated Ringers Solution) 1,000 mls @ 75 mls/hr IV ASDIR [facility] Cefazolin Sodium 1 gm/ (Dextrose) 50 mls @ 100 mls/hr IVPB Q6H [facility] Stop: 01/01/19 06:29 Insulin Aspart (Novolog Vial Sliding Scale -) 1 vial SQ [facility]; Protocol Last Admin: 12/31/18 08:28 Dose: Not Given Non-Formulary Medication (Cyclosporine [Restasis]) 1 each OP PRN PRN PRN Reason: DRY EYES Ondansetron HCl (Zofran Injection) 4 mg IVPUSH Q6H PRN PRN Reason: NAUSEA AND/OR VOMITING Oxycodone HCl (Roxicodone -) 10 mg PO Q6H PRN PRN Reason: PAIN LEVEL 6-10 Last Admin: 12/31/18 00:02 Dose: 10 mg Rosuvastatin Calcium (Crestor -) 20 mg PO HS [facility] Home Medications Medication Instructions Recorded Acetaminophen/Caffeine/Butalb 1 tablet PO PRN PRN 11/26/18 [Fioricet -] Carisoprodol [Soma] 350 mg PO PRN PRN 11/26/18 Cyclosporine [Restasis] 1 each OP PRN PRN 11/26/18 Empagliflozin [Jardiance] 10 mg PO DAILY 11/26/18 Fenofibrate Nanocrystallized 145 mg PO DAILY 11/26/18 [Fenofibrate] Gabapentin 800 mg PO TID 11/26/18 Lansoprazole [Prevacid] 15 mg PO DAILY 11/26/18 Liraglutide [Victoza -] 0.6 mg SQ DAILY@0700 11/26/18 Oxycodone HCl/Acetaminophen 1 each PO PRN PRN 11/26/18 [Percocet 10-325 mg Tablet] Pioglitazone HCl [Actos] 30 mg PO DAILY 11/26/18 Rosuvastatin [Crestor -] 20 mg PO DAILY 11/26/18 Cyclobenzaprine HCl [Flexeril -] 10 mg PO HS #28 tablet 11/27/18 Docusate Sodium [Colace -] 100 mg PO TID #30 capsule 11/27/18 ASSESSMENT/PLAN: 68 y/o M, pmh of spondylolysis, DMII, HLD, and HTN c/o neck pain. Pt is s/p cervical spine C3-C7 posterior fusion on 11/26/18, presents with surgical wound dehiscence #Surgical wound dehiscence Surgical intervention today NPO for now Adequate dressing changes Dilaudid #JAMA LR at 100 monitor renal function #DM ISS #Spondylolysis Chronic #HTN cont home med FEN NPO till surgery LR at 100 #DVT ppx SCD Dispo: f/u after surgery, pain management Visit type - Emergency Visit Emergency Visit: Yes ED Registration Date: 12/30/18 Care time: The patient presented to the Emergency Department on the above date and was hospitalized for further evaluation of their emergent condition. - New Patient This patient is new to me today: Yes Date on this admission: 01/01/19 - Critical Care Critical Care patient: No - Discharge Referral Referred to [facility] No ATTENDING PHYSICIAN STATEMENT I saw and evaluated the patient. I reviewed the resident's note and discussed the case with the resident. I agree with the resident's findings and plan as documented. SUBJECTIVE: OBJECTIVE: ASSESSMENT AND PLAN:
[2018-12-31] MEDS: LACTATED RINGERS SOLUTION 1,000 ML IV SCH ×2 (17:40→21:40)
[2018-12-31] MEDS ORDERED: PT OWN MED DRAWER 7, Y5N ONE (17:42)
[2018-12-31] MEDS ORDERED: CEFAZOLIN 1 GM in DEXTROSE 5%-WATER - 50 ML IVPB SCH (18:00)
[2018-12-31] MEDS ORDERED: DEXTROSE 5%-WATER - 50 ML IVPB ONE ×2 (18:21→23:48)
[2018-12-31] MEDS: CEFAZOLIN 1 GM in DEXTROSE 5%-WATER - 50 ML IVPB SCH ×2 (18:26→23:58)
--- NOTE | 2018-12-31 19:56 | PN ---
Teaching Attending Note Name of Resident: Vikash Dan ATTENDING PHYSICIAN STATEMENT I reviewed the resident's note and discussed the case with the resident. SUBJECTIVE: Patient is a 68 y/o male with PMHx of spondylolysis, T2dm, HLD, and HTN s/p cervical spine C3-C7 posterior fusion on 11/26/18, presents today with surgical wound dehiscence. OBJECTIVE: Vital Signs Temperature 98.2 F 12/31/18 17:53 Pulse Rate 93 H 12/31/18 17:53 Respiratory Rate 18 12/31/18 17:53 Blood Pressure 124/69 12/31/18 17:53 O2 Sat by Pulse Oximetry (%) 97 12/31/18 18:07 PE not done since patient was in OR CBCD WBC 5.6 K/mm3 (4.0-10.0) 12/31/18 07:05 RBC 4.17 M/mm3 (4.00-5.60) 12/31/18 07:05 Hgb 12.5 GM/dL (11.7-16.9) 12/31/18 07:05 Hct 36.8 % (35.4-49) 12/31/18 07:05 MCV 88.3 fl (80-96) 12/31/18 07:05 MCHC 34.0 g/dl (32.0-35.9) 12/31/18 07:05 RDW 14.1 % (11.9-15.9) 12/31/18 07:05 Plt Count 138 K/MM3 (134-434) 12/31/18 07:05 MPV 10.7 fl (7.5-11.1) 12/31/18 07:05 CMP Sodium 136 mmol/L (136-145) 12/31/18 07:05 Potassium 4.1 mmol/L (3.5-5.1) 12/31/18 07:05 Chloride 107 mmol/L (98-107) 12/31/18 07:05 Carbon Dioxide 24 mmol/L (21-32) 12/31/18 07:05 Anion Gap 5 MMOL/L (8-16) L 12/31/18 07:05 BUN 24.5 mg/dL (7-18) H 12/31/18 07:05 Creatinine 1.3 mg/dL (0.55-1.3) 12/31/18 07:05 Random Glucose 96 mg/dL (74-106) 12/31/18 07:05 Calcium 9.0 mg/dL (8.5-10.1) 12/31/18 07:05 Total Bilirubin 0.2 mg/dL (0.2-1) 12/30/18 18:44 AST 9 U/L (15-37) L 12/30/18 18:44 ALT 13 U/L (13-61) 12/30/18 18:44 Alkaline Phosphatase 40 U/L (45-117) L 12/30/18 18:44 Total Protein 6.3 g/dl (6.4-8.2) L 12/30/18 18:44 Albumin 3.5 g/dl (3.4-5.0) 12/30/18 18:44 Current Medications Generic Name Dose Route Start Last Admin Trade Name Freq PRN Reason Stop Dose Admin Acetaminophen 650 mg 12/30/18 20:26 Tylenol - PO Q6H PRN PAIN LEVEL 1-5 Cyclobenzaprine HCl 10 mg 12/31/18 22:00 Flexeril - PO HS WEI Docusate Sodium 100 mg 12/31/18 06:00 12/31/18 06:16 Colace - PO 100 mg TID WEI Administration Fenofibric Acid 135 mg 12/31/18 10:00 Trilipix - PO DAILY [facility] Gabapentin 800 mg 12/31/18 06:00 12/31/18 06:16 Neurontin - PO 800 mg TID WEI Administration Lactated Ringer's 1,000 mls @ 100 mls/hr 12/30/18 20:30 12/30/18 20:40 Lactated Ringers Solution IV 100 mls/hr ASDIR WEI Administration Lactated Ringer's 1,000 mls @ 75 mls/hr 12/31/18 10:45 12/31/18 17:40 Lactated Ringers Solution IV 75 mls/hr ASDIR WEI Administration Cefazolin Sodium 1 gm/ 50 mls @ 100 mls/hr 12/31/18 18:00 12/31/18 18:26 Dextrose IVPB 01/01/19 06:29 100 mls/hr Q6H WEI Administration Insulin Aspart 1 vial 12/30/18 22:00 12/31/18 08:28 Novolog Vial Sliding Scale - SQ Not Given ACHS WEI Protocol Non-Formulary Medication 1 each 12/30/18 23:51 Cyclosporine [Restasis] OP PRN PRN DRY EYES Ondansetron HCl 4 mg 12/31/18 10:42 Zofran Injection IVPUSH Q6H PRN NAUSEA AND/OR VOMITING Oxycodone HCl 10 mg 12/30/18 22:44 12/31/18 19:02 Roxicodone - PO 10 mg Q6H PRN Administration PAIN LEVEL 6-10 Rosuvastatin Calcium 20 mg 12/31/18 22:00 Crestor - PO HS [facility] Home Medications Medication Instructions Recorded Acetaminophen/Caffeine/Butalb 1 tablet PO PRN PRN 11/26/18 [Fioricet -] Carisoprodol [Soma] 350 mg PO PRN PRN 11/26/18 Cyclosporine [Restasis] 1 each OP PRN PRN 11/26/18 Empagliflozin [Jardiance] 10 mg PO DAILY 11/26/18 Fenofibrate Nanocrystallized 145 mg PO DAILY 11/26/18 [Fenofibrate] Gabapentin 800 mg PO TID 11/26/18 Lansoprazole [Prevacid] 15 mg PO DAILY 11/26/18 Liraglutide [Victoza -] 0.6 mg SQ DAILY@0700 11/26/18 Oxycodone HCl/Acetaminophen 1 each PO PRN PRN 11/26/18 [Percocet 10-325 mg Tablet] Pioglitazone HCl [Actos] 30 mg PO DAILY 11/26/18 Rosuvastatin [Crestor -] 20 mg PO DAILY 11/26/18 Cyclobenzaprine HCl [Flexeril -] 10 mg PO HS #28 tablet 11/27/18 Docusate Sodium [Colace -] 100 mg PO TID #30 capsule 11/27/18 ASSESSMENT/PLAN: Patient is a 68 y/o M, pmh of spondylolysis, T2dm, HLD, and HTN c/o neck pain. Pt is s/p cervical spine C3-C7 posterior fusion on 11/26/18, presents with surgical wound dehiscence. #POD#0 Posterior c-spine wound dehiscence s/p Incision, irrigation, drainage and debridement posterior c-spine. , Inspection of fusion mass. and Application of wound vac as per 's note. management per #JAMA continue IVF #T2DM: ISS with coverage #HTN: cont home med #DVT ppx: SCD
[2018-12-31] MEDS: ROSUVASTATIN CA 20 MG TABLET (FP) PO SCH (22:31)
[2018-12-31] MEDS: CYCLOBENZAPRINE HCL 10 MG TABLET (FP) PO SCH (22:32)
[2019-01-01] MEDS ORDERED: DEXTROSE 5%-WATER - 50 ML IVPB ONE (06:05)
[2019-01-01] MEDS ORDERED: ceFAZolin SODIUM 1 GM VIAL ONE (06:05)
[2019-01-01] MEDS: CEFAZOLIN 1 GM in DEXTROSE 5%-WATER - 50 ML IVPB SCH (06:10)
[2019-01-01] MEDS: GABAPENTIN 400 MG CAPSULE (FP) PO SCH ×3 (06:27→22:34)
[2019-01-01] MEDS: DOCUSATE SODIUM 100 MG CAPSULE (FP) PO SCH ×3 (06:27→22:34)
[2019-01-01] MEDS: INSULIN SLIDING SCALE (NOVOLOG) 1 VIAL SQ SCH ×4 (06:46→22:30)
--- NOTE | 2019-01-01 08:00 | PN ---
Progress Note (short form) - Note Progress Note: Anesthesia Post Op Note Pt seen s/p GA I&D post cerv wound Pt awake alert - c/o of moderate pain denies n/v, no puritis, no urinary retention VSS no apparent anesthesia complications Kylah Gregg.
[2019-01-01] MEDS ORDERED: PT OWN MED DRAWER 7, Y5N ONE (09:58)
[2019-01-01] MEDS: FENOFIBRIC ACID 135 MG CAP PO SCH ×3 (10:21→23:20)
[2019-01-01] MEDS: oxyCODONE HCL 5 MG TABLET PO PRN ×3 (10:21→18:32)
--- NOTE | 2019-01-01 12:12 | PN ---
Physical Exam: SUBJECTIVE: Patient seen and examined at bedside- patient is in a lot of pain and wants his pain meds increased; he did not sleep well- and wants to get the wound vac off; he deneis any CP/SOB/N/V OBJECTIVE: Vital Signs Period Temp Pulse Resp BP Sys/Champion Pulse Ox Last 24 Hr 97.5 F-98.8 F 64-93 11-20 103-153/63-90 97-100 GENERAL: The patient is awake, alert, and fully oriented, in no acute distress. EYES: PEERLA; EOMI; no scleral icterus NECK: neck collar in place with wound vac present LUNGS:CTA B/L; no rales, rhonchi or wheezing HEART: Regular rate and rhythm, S1, S2 without murmur, rub or gallop. ABDOMEN: SoftNT/ND +BS in a;; 4 quadrants EXTREMITIES: 2+ pulses, warm, well-perfused, no edema. PSYCH: Normal mood, normal affect. SKIN: Warm, dry, normal turgor, no rashes or lesions noted Laboratory Results - last 24 hr 01/01/19 01/01/19 06:37 11:44 POC Glucometer 109 110 Active Medications Generic Name Dose Route Start Last Admin Trade Name Freq PRN Reason Stop Dose Admin Acetaminophen 650 mg 12/30/18 20:26 Tylenol - PO Q6H PRN PAIN LEVEL 1-5 Cyclobenzaprine HCl 10 mg 12/31/18 22:00 12/31/18 22:32 Flexeril - PO 10 mg HS WEI Administration Docusate Sodium 100 mg 12/31/18 06:00 01/01/19 06:27 Colace - PO Not Given TID WEI Fenofibric Acid 135 mg 12/31/18 10:00 01/01/19 10:28 Trilipix - PO Not Given DAILY [facility] Gabapentin 800 mg 12/31/18 06:00 01/01/19 06:27 Neurontin - PO Not Given TID WEI Lactated Ringer's 1,000 mls @ 100 mls/hr 12/30/18 20:30 12/31/18 21:40 Lactated Ringers Solution IV Not Given ASDIR WEI Lactated Ringer's 1,000 mls @ 75 mls/hr 12/31/18 10:45 12/31/18 17:40 Lactated Ringers Solution IV 75 mls/hr ASDIR WEI Administration Insulin Aspart 1 vial 12/30/18 22:00 01/01/19 11:52 Novolog Vial Sliding Scale - SQ Not Given [facility] Protocol Non-Formulary Medication 1 each 12/30/18 23:51 Cyclosporine [Restasis] OP PRN PRN DRY EYES Ondansetron HCl 4 mg 12/31/18 10:42 Zofran Injection IVPUSH Q6H PRN NAUSEA AND/OR VOMITING Oxycodone HCl 15 mg 01/01/19 09:01 01/01/19 10:21 Roxicodone - PO 15 mg Q4H PRN Administration PAIN LEVEL 6-10 Rosuvastatin Calcium 20 mg 12/31/18 22:00 12/31/18 22:31 Crestor - PO Not Given [facility] ASSESSMENT/PLAN: 68 y/o male PMH spondylolysis, DMII, HLD, and HTN c/o neck pain and impaired wound healing. # Impaired wound healing/dehiscence - POD #1 - Maintain clean wound and dressing - wound vac in place - Pain control: oxycodone 15mg q4h PRN -neurontin 800 TID -flexeril 10mg -zofran PRN -PT # DM - ISS -BGMS ACHS #HLD crestor fenofibric acid #F/E/N - LR @75mls - Cont. to monitor - regular diet # DVT prophylaxis - SCD Problem List - Problems (1) Wound dehiscence, surgical Code(s): T81.31XA - DISRUPTION OF EXTERNAL OPERATION (SURGICAL) WOUND, NEC, INIT Qualifiers: Encounter type: initial encounter Qualified Code(s): T81.31XA - Disruption of external operation (surgical) wound, not elsewhere classified, initial encounter Visit type - Emergency Visit Emergency Visit: Yes ED Registration Date: 12/30/18 Care time: The patient presented to the Emergency Department on the above date and was hospitalized for further evaluation of their emergent condition. - New Patient This patient is new to me today: No - Critical Care Critical Care patient: No ATTENDING PHYSICIAN STATEMENT I saw and evaluated the patient. I reviewed the resident's note and discussed the case with the resident. I agree with the resident's findings and plan as documented. SUBJECTIVE: OBJECTIVE: ASSESSMENT AND PLAN:
--- NOTE | 2019-01-01 17:33 | PN ---
Teaching Attending Note Name of Resident: Briseida Loving ATTENDING PHYSICIAN STATEMENT I saw and evaluated the patient. I reviewed the resident's note and discussed the case with the resident. I agree with the resident's findings and plan as documented. SUBJECTIVE: Patient is a 68 y/o male with PMHx of spondylolysis, T2dm, HLD, and HTN s/p cervical spine C3-C7 posterior fusion on 11/26/18, presents today with surgical wound dehiscence. Patient feels well with no acute distress. OBJECTIVE: Vital Signs Temperature 98.2 F 12/31/18 17:53 Pulse Rate 93 H 12/31/18 17:53 Respiratory Rate 18 12/31/18 17:53 Blood Pressure 124/69 12/31/18 17:53 O2 Sat by Pulse Oximetry (%) 97 12/31/18 18:07 GENERAL: AAOx3, NAD, HEAD: NC, has a hard collar with a wound vac EYES: LILI, EOMI, conjunctiva clear. LUNGS: CTAB, No wheezes, and no crackles. HEART: RRR, no m/g/r ABDOMEN: Soft, BS present in all 4 quadrants, non-distended, no JVD, EXTREMITIES: 2+ pulses, warm, well-perfused. NEUROLOGICAL: Cranial nerves II-XII grossly intact. CBCD WBC 5.6 K/mm3 (4.0-10.0) 12/31/18 07:05 RBC 4.17 M/mm3 (4.00-5.60) 12/31/18 07:05 Hgb 12.5 GM/dL (11.7-16.9) 12/31/18 07:05 Hct 36.8 % (35.4-49) 12/31/18 07:05 MCV 88.3 fl (80-96) 12/31/18 07:05 MCHC 34.0 g/dl (32.0-35.9) 12/31/18 07:05 RDW 14.1 % (11.9-15.9) 12/31/18 07:05 Plt Count 138 K/MM3 (134-434) 12/31/18 07:05 MPV 10.7 fl (7.5-11.1) 12/31/18 07:05 CMP Sodium 136 mmol/L (136-145) 12/31/18 07:05 Potassium 4.1 mmol/L (3.5-5.1) 12/31/18 07:05 Chloride 107 mmol/L (98-107) 12/31/18 07:05 Carbon Dioxide 24 mmol/L (21-32) 12/31/18 07:05 Anion Gap 5 MMOL/L (8-16) L 12/31/18 07:05 BUN 24.5 mg/dL (7-18) H 12/31/18 07:05 Creatinine 1.3 mg/dL (0.55-1.3) 12/31/18 07:05 Random Glucose 96 mg/dL (74-106) 12/31/18 07:05 Calcium 9.0 mg/dL (8.5-10.1) 12/31/18 07:05 Total Bilirubin 0.2 mg/dL (0.2-1) 12/30/18 18:44 AST 9 U/L (15-37) L 12/30/18 18:44 ALT 13 U/L (13-61) 12/30/18 18:44 Alkaline Phosphatase 40 U/L (45-117) L 12/30/18 18:44 Total Protein 6.3 g/dl (6.4-8.2) L 12/30/18 18:44 Albumin 3.5 g/dl (3.4-5.0) 12/30/18 18:44 Current Medications Generic Name Dose Route Start Last Admin Trade Name Freq PRN Reason Stop Dose Admin Acetaminophen 650 mg 12/30/18 20:26 Tylenol - PO Q6H PRN PAIN LEVEL 1-5 Cyclobenzaprine HCl 10 mg 12/31/18 22:00 Flexeril - PO HS WEI Docusate Sodium 100 mg 12/31/18 06:00 12/31/18 06:16 Colace - PO 100 mg TID WEI Administration Fenofibric Acid 135 mg 12/31/18 10:00 Trilipix - PO DAILY WEI Gabapentin 800 mg 12/31/18 06:00 12/31/18 06:16 Neurontin - PO 800 mg TID WEI Administration Lactated Ringer's 1,000 mls @ 100 mls/hr 12/30/18 20:30 12/30/18 20:40 Lactated Ringers Solution IV 100 mls/hr ASDIR WEI Administration Lactated Ringer's 1,000 mls @ 75 mls/hr 12/31/18 10:45 12/31/18 17:40 Lactated Ringers Solution IV 75 mls/hr ASDIR WEI Administration Cefazolin Sodium 1 gm/ 50 mls @ 100 mls/hr 12/31/18 18:00 12/31/18 18:26 Dextrose IVPB 01/01/19 06:29 100 mls/hr Q6H WEI Administration Insulin Aspart 1 vial 12/30/18 22:00 12/31/18 08:28 Novolog Vial Sliding Scale - SQ Not Given ACHS [facility] Protocol Non-Formulary Medication 1 each 12/30/18 23:51 Cyclosporine [Restasis] OP PRN PRN DRY EYES Ondansetron HCl 4 mg 12/31/18 10:42 Zofran Injection IVPUSH Q6H PRN NAUSEA AND/OR VOMITING Oxycodone HCl 10 mg 12/30/18 22:44 12/31/18 19:02 Roxicodone - PO 10 mg Q6H PRN Administration PAIN LEVEL 6-10 Rosuvastatin Calcium 20 mg 12/31/18 22:00 Crestor - PO HS [facility] Home Medications Medication Instructions Recorded Acetaminophen/Caffeine/Butalb 1 tablet PO PRN PRN 11/26/18 [Fioricet -] Carisoprodol [Soma] 350 mg PO PRN PRN 11/26/18 Cyclosporine [Restasis] 1 each OP PRN PRN 11/26/18 Empagliflozin [Jardiance] 10 mg PO DAILY 11/26/18 Fenofibrate Nanocrystallized 145 mg PO DAILY 11/26/18 [Fenofibrate] Gabapentin 800 mg PO TID 11/26/18 Lansoprazole [Prevacid] 15 mg PO DAILY 11/26/18 Liraglutide [Victoza -] 0.6 mg SQ DAILY@0700 11/26/18 Oxycodone HCl/Acetaminophen 1 each PO PRN PRN 11/26/18 [Percocet 10-325 mg Tablet] Pioglitazone HCl [Actos] 30 mg PO DAILY 11/26/18 Rosuvastatin [Crestor -] 20 mg PO DAILY 11/26/18 Cyclobenzaprine HCl [Flexeril -] 10 mg PO HS #28 tablet 11/27/18 Docusate Sodium [Colace -] 100 mg PO TID #30 capsule 11/27/18 Microbiology 11/25/19 12:48 Wound Gram Stain - Final 12/31/18 12:48 Wound Wound Culture - Preliminary 12/31/18 12:48 Wound Gram Stain - Final 12/31/18 12:48 Wound Wound Culture - Preliminary Non Lactose Fermenting Gnb Pending Organism 12/31/18 12:48 Wound Gram Stain - Final 12/31/18 12:48 Wound Wound Culture - Preliminary Non Lactose Fermenting Gnb 12/31/18 12:48 Wound ALLAN Preparation - Preliminary 12/31/18 12:48 Wound Fungal Culture - Preliminary 12/31/18 12:48 Wound AFB Smear Concentration - Preliminary 12/31/18 12:48 Wound Mycobacterial Culture - Preliminary ASSESSMENT/PLAN: Patient is a 68 y/o M, pmh of spondylolysis, T2dm, HLD, and HTN c/o neck pain. Pt is s/p cervical spine C3-C7 posterior fusion on 11/26/18, presents with surgical wound dehiscence. #POD#1 Posterior c-spine wound dehiscence s/p Incision, irrigation, drainage and debridement posterior c-spine. , Inspection of fusion mass. and Application of wound vac as per 's note. management per will get ID to see the patient and appreciated dr Do #JAMA continue IVF #T2DM: ISS with coverage #HTN: cont home med #DVT ppx: SCD
[2019-01-01] MEDS: CYCLOBENZAPRINE HCL 10 MG TABLET (FP) PO SCH (22:33)
[2019-01-01] MEDS: ROSUVASTATIN CA 20 MG TABLET (FP) PO SCH (22:34)
[2019-01-01] MEDS: LACTATED RINGERS SOLUTION 1,000 ML IV SCH (23:20)
[2019-01-02] MEDS: DOCUSATE SODIUM 100 MG CAPSULE (FP) PO SCH ×3 (06:06→23:09)
[2019-01-02] MEDS: GABAPENTIN 400 MG CAPSULE (FP) PO SCH ×3 (06:06→23:09)
[2019-01-02] MEDS: INSULIN SLIDING SCALE (NOVOLOG) 1 VIAL SQ SCH ×3 (06:11→14:04)
--- NOTE | 2019-01-02 07:22 | SPA.PREOP ---
- PRE-OP NOTE Dx: Posterior neck wound dehisence Planned Procedure: Posterior cervical wound washout, VAC application Surgeon: Ruy Victoria Last Vital Signs Temp Pulse Resp BP Pulse Ox 97.8 F 60 18 121/72 98 01/02/19 04:46 01/02/19 04:46 01/02/19 04:46 01/02/19 04:46 01/01/19 21:00 Lab Results WBC 5.6 K/mm3 (4.0-10.0) 12/31/18 07:05 RBC 4.17 M/mm3 (4.00-5.60) 12/31/18 07:05 Hgb 12.5 GM/dL (11.7-16.9) 12/31/18 07:05 Hct 36.8 % (35.4-49) 12/31/18 07:05 MCV 88.3 fl (80-96) 12/31/18 07:05 MCHC 34.0 g/dl (32.0-35.9) 12/31/18 07:05 RDW 14.1 % (11.9-15.9) 12/31/18 07:05 Plt Count 138 K/MM3 (134-434) 12/31/18 07:05 Sodium 136 mmol/L (136-145) 12/31/18 07:05 Potassium 4.1 mmol/L (3.5-5.1) 12/31/18 07:05 Chloride 107 mmol/L (98-107) 12/31/18 07:05 Carbon Dioxide 24 mmol/L (21-32) 12/31/18 07:05 Anion Gap 5 MMOL/L (8-16) L 12/31/18 07:05 BUN 24.5 mg/dL (7-18) H 12/31/18 07:05 Creatinine 1.3 mg/dL (0.55-1.3) 12/31/18 07:05 Random Glucose 96 mg/dL (74-106) 12/31/18 07:05 Calcium 9.0 mg/dL (8.5-10.1) 12/31/18 07:05 Blood Type B POSITIVE 12/30/18 19:10 Antibody Screen Negative 12/30/18 19:10 INR 1.08 (0.83-1.09) 12/30/18 18:44 - ASSESSMENT/PLAN 1. NPO after breakfast ordered for today 2. GI/DVT PPX 3. Medical optimization / clearance 4. Consent to be obtained by surgeon after risks, benefits and alternatives discussed with patient and or Health Care Proxy. Problem List - Problems (1) Wound dehiscence, surgical Code(s): T81.31XA - DISRUPTION OF EXTERNAL OPERATION (SURGICAL) WOUND, NEC, INIT Qualifiers: Encounter type: initial encounter Qualified Code(s): T81.31XA - Disruption of external operation (surgical) wound, not elsewhere classified, initial encounter Visit type - Case Type Case Type: ED Admission - New patient This patient is new to me today: Yes Date on this admission: 01/02/19
[2019-01-02] MEDS: oxyCODONE HCL 5 MG TABLET PO PRN ×3 (08:11→20:48)
[2019-01-02 09:10] LABS: HEMATOCRIT 43.6 % (35.4-49); HEMOGLOBIN 14.7 GM/dL (11.7-16.9); MCH 29.9 pg (25.7-33.7); MCHC 33.7 g/dl (32.0-35.9); MEAN CELL VOLUME 88.8 fl (80-96); MEAN PLT VOLUME 11.4 fl (7.5-11.1); PLATELET COUNT 162 K/MM3 (134-434); RBC 4.91 M/mm3 (4.00-5.60); WHITE BLOOD COUNT 7.3 K/mm3 (4.0-10.0)
[2019-01-02 09:28] LABS: ALBUMIN 3.9 g/dl (3.4-5.0); BILIRUBIN,TOTAL 0.4 mg/dL (0.2-1); BLOOD UREA NITROGEN 16.4 mg/dL (7-18); CALCIUM 9.5 mg/dL (8.5-10.1); CREATININE 1.1 mg/dL (0.55-1.3); TOT PROT 7.1 g/dl (6.4-8.2)
[2019-01-02] MEDS: FENOFIBRIC ACID 135 MG CAP PO SCH (11:26)
[2019-01-02] MEDS: LACTATED RINGERS SOLUTION 1,000 ML IV SCH ×3 (11:55→19:30)
[2019-01-02] MEDS ORDERED: ONDANSETRON 4 MG/2 ML VIAL IVPUSH PRN ×2 (15:32→19:19)
[2019-01-02] MEDS ORDERED: LACTATED RINGERS SOLUTION 1,000 ML IV SCH (15:45)
[2019-01-02] MEDS ORDERED: DEXTROSE 5%-WATER - 50 ML IVPB ONE ×2 (15:50→17:19)
[2019-01-02] MEDS ORDERED: PIPERACILLIN/TAZOBACTAM 3.375 GM VIAL IVPB ONE ×2 (15:50→17:19)
[2019-01-02] MEDS: PIPERACILLIN/TAZOB 3.375 GM 3.375 GM in DEXTROSE 5%-WATER - 50 ML IVPB SCH ×2 (16:04→18:05)
[2019-01-02] MEDS ORDERED: EPHEDRINE SULFATE/0.9% NACL/PF 50 MG/10 ML SYRINGE NR ONE ×2 (16:46→18:20)
[2019-01-02] MEDS ORDERED: NEOSTIGMINE METHYLSULFATE 0.5 MG/1 ML - 10 ML MDV ONE (16:46)
[2019-01-02] MEDS ORDERED: fentaNYL CITRATE 250 MCG/5 ML VIAL ONE (16:46)
[2019-01-02] MEDS ORDERED: MIDAZOLAM HCL 2 MG/2 ML SINGLE DOSE VIAL ONE (16:47)
[2019-01-02] MEDS ORDERED: SUCCINYLCHOLINE CHLORIDE 200 MG/10 ML SYRINGE ONE (16:47)
[2019-01-02] MEDS ORDERED: ROCURONIUM BROMIDE 50 MG/5 ML SYRINGE ONE ×3 (16:47→18:17)
[2019-01-02] MEDS ORDERED: PROPOFOL 20 ML ONE ×3 (16:47→18:16)
[2019-01-02] MEDS ORDERED: LIDOCAINE HCL 2% JELLY (5 ML/TUBE) ONE (16:52)
[2019-01-02] MEDS ORDERED: HYDROmorphone HCl 2 MG/ML VIAL ONE (18:14)
--- NOTE | 2019-01-02 18:14 | PN ---
Physical Exam: SUBJECTIVE: Patient seen and examined 68 y/o M, pmh of spondylolysis, DMII, HLD, and HTN c/o neck pain. Pt is s/p cervical spine C3-C7 posterior fusion on 11/26/18, presents with surgical wound dehiscence. Currently, pt is recovering well otherwise in usual sate of health. C/o of neck pain. Denies f/c/n/v/d/sob/chest pain. OBJECTIVE: Vital Signs Period Temp Pulse Resp BP Sys/Champion Pulse Ox Last 24 Hr 97.8 F-98.6 F 60-73 18-18 121-143/71-89 98 GENERAL: AOx3, NAD, pt is aggravated HEAD: 6x3cm surgical wound w/ iodoform tape with No erythema or discharge but warm to touch. EYES: LILI, EOMI, conjunctiva clear. LUNGS: CTAB, No wheezes, and no crackles. HEART: RRR, no m/g/r ABDOMEN: Soft, BS present in all 4 quadrants, non-distended, no JVD, MUSCULOSKELETAL: No bony deformities or tenderness. No CVA tenderness. UPPER EXTREMITIES: 2+ pulses, warm, well-perfused. LOWER EXTREMITIES: 2+ pulses, warm, well-perfused. NEUROLOGICAL: No focal deficits. Cranial nerves II-XII intact. Normal speech. Laboratory Results - last 24 hr 01/01/19 01/02/19 01/02/19 22:38 06:09 07:40 WBC 7.3 RBC 4.91 Hgb 14.7 Hct 43.6 D MCV 88.8 MCH 29.9 MCHC 33.7 RDW 14.0 Plt Count 162 MPV 11.4 H Sodium Potassium Chloride Carbon Dioxide Anion Gap BUN Creatinine Est GFR (CKD-EPI)AfAm Est GFR (CKD-EPI)NonAf POC Glucometer 135 124 Random Glucose Calcium Total Bilirubin AST ALT Alkaline Phosphatase Total Protein Albumin Active Medications Generic Name Dose Route Start Last Admin Trade Name Freq PRN Reason Stop Dose Admin Acetaminophen 650 mg 12/30/18 20:26 Tylenol - PO Q6H PRN PAIN LEVEL 1-5 Cyclobenzaprine HCl 10 mg 12/31/18 22:00 01/01/19 22:33 Flexeril - PO 10 mg HS WEI Administration Docusate Sodium 100 mg 12/31/18 06:00 01/02/19 14:00 Colace - PO 100 mg TID WEI Administration Fenofibric Acid 135 mg 01/02/19 22:00 Trilipix - PO DAILY@2200 WEI Fentanyl 50 mcg 01/02/19 15:32 Sublimaze Injection - IVPUSH [id number] PRN PAIN-PACU ORDER X 4 DOSES ONLY Gabapentin 800 mg 12/31/18 06:00 01/02/19 14:02 Neurontin - PO 800 mg TID WEI Administration Piperacillin Sod/Tazobactam 50 mls @ 100 mls/hr 01/02/19 14:45 01/02/19 18:05 Sod 3.375 gm/ Dextrose IVPB Not Given Q8H-IV WEI Protocol Lactated Ringer's 1,000 mls @ 75 mls/hr 01/02/19 15:45 01/02/19 16:08 Lactated Ringers Solution IV 75 mls/hr ASDIR WEI Administration Insulin Aspart 1 vial 12/30/18 22:00 01/02/19 14:04 Novolog Vial Sliding Scale - SQ Not Given ACHS [facility] Protocol Non-Formulary Medication 1 each 12/30/18 23:51 Cyclosporine [Restasis] OP PRN PRN DRY EYES Ondansetron HCl 4 mg 01/02/19 15:32 Zofran Injection IVPUSH Q6H PRN NAUSEA AND/OR VOMITING Oxycodone HCl 15 mg 01/01/19 09:01 01/02/19 13:57 Roxicodone - PO 15 mg Q4H PRN Administration PAIN LEVEL 6-10 Rosuvastatin Calcium 20 mg 12/31/18 22:00 01/01/19 22:34 Crestor - PO 20 mg HS WEI Administration ASSESSMENT/PLAN: 68 y/o M, pmh of spondylolysis, DMII, HLD, and HTN c/o neck pain. Pt is s/p cervical spine C3-C7 posterior fusion on 11/26/18, presents with surgical wound dehiscence #Surgical wound dehiscence Surgical intervention at 2 pm today I&D- likely infectious Started on Zosyn Adequate dressing changes Dilaudid #JAMA LR at 100 monitor renal function #DM ISS #Spondylolysis Chronic #HTN cont home med FEN NPO till surgery LR at 100 #DVT ppx SCD Dispo: f/u after surgery, pain management Visit type - Emergency Visit Emergency Visit: Yes ED Registration Date: 12/30/18 Care time: The patient presented to the Emergency Department on the above date and was hospitalized for further evaluation of their emergent condition. - New Patient This patient is new to me today: Yes Date on this admission: 01/04/19 - Critical Care Critical Care patient: No - Discharge Referral Referred to [facility] Med P.C.: No ATTENDING PHYSICIAN STATEMENT I saw and evaluated the patient. I reviewed the resident's note and discussed the case with the resident. I agree with the resident's findings and plan as documented. SUBJECTIVE: OBJECTIVE: ASSESSMENT AND PLAN:
[2019-01-02] MEDS ORDERED: LIDOCAINE HCL/PF 2% SDV 5ML VIAL ONE (18:17)
[2019-01-02] MEDS ORDERED: EPINEPHrine 1:10,000 (P-F SYR) 1 MG/10 ML DISP.SYRIN ONE (18:20)
--- NOTE | 2019-01-02 18:32 | PN ---
Progress Note (short form) - Note Progress Note: 68M s/p C3-C7 posterior instrumented spinal fusion (11/26/2018) now s/p I&D posterior cervical spine with delayed primary wound closure POD #0. -Maintain head of bed 30-45 degrees. -Pain medication: per anaesthesia team; oral meds (oxycodone preferred), no LUMBER TRIPPER ; NO NSAID's. -f/u OR wound cultures x 2. -Zosyn 4.5g IV q6h x 48 hours; then convert to oral antibiotics for discharge home. -DVT PPx: -Mechanical only: ANA's, SCD's. -f/u AM labs. -Incentive spirometry. -PT/OT/Rehab, OOB. -PWB B/L UE < 5lbs. -WBAT B/L LE. -f/u TOV (8 hours max). -Keep dressing clean & dry. -No heavy lifting (>5 lbs), bending or twisting x 6 months post op. -Start with soft diet; advance diet as tolerated. -B/L UE & LE NV checks. -Care per primary medical hospitalist team. -Will follow. Juan Manuel Victoria MD (Orthopaedic Surgery).
--- NOTE | 2019-01-02 18:37 | OP ---
Operative Note - Note: Operative Date: 01/02/19 Pre-Operative Diagnosis: Posterior cervical spine wound dehiscence. Operation: I&D posterior cervical spine Post-Operative Diagnosis: Same as Pre-op Surgeon: Juan Manuel Victoria Clutch Mechanic: Ruy Victoria Anesthesiologist/MANAGER TECHNICAL TRAINING: Khang Argueta Anesthesia: General Specimens Removed: Culture sticks x 2; bone, soft tissue Estimated Blood Loss (mls): 5 Fluid Volume Replaced (mls): 1,000 (Crystalloid) Operative Report Dictated: Yes
--- NOTE | 2019-01-02 19:14 | PN ---
Teaching Attending Note Name of Resident: Briseida Loving ATTENDING PHYSICIAN STATEMENT I saw and evaluated the patient. I reviewed the resident's note and discussed the case with the resident. I agree with the resident's findings and plan as documented. SUBJECTIVE: OBJECTIVE: ASSESSMENT AND PLAN:
[2019-01-02] MEDS ORDERED: PATIENT'S OWN MEDICATION (NON-FORMULARY) (Cyclosporine [Restasis] 1 EACH) OP PRN (19:19)
[2019-01-02] MEDS ORDERED: ACETAMINOPHEN 325 MG TABLET (FP) PO PRN (19:19)
--- NOTE | 2019-01-02 19:22 | PN ---
Teaching Attending Note Name of Resident: Briseida Loving ATTENDING PHYSICIAN STATEMENT I saw and evaluated the patient. I reviewed the resident's note and discussed the case with the resident. I agree with the resident's findings and plan as documented. SUBJECTIVE: has pain in posterior neck . but tolerable . No weakness, numbness or tingling OBJECTIVE: NAD CV: RRR LUngs: CTAB Ext : No edema Lungs: CTAB Neuro : strength 5/5 in upper and lwoer extremities proximallly and distally. sensation to light touch NL. reflexes 2+ biceps and knee jerk b/l ASSESSMENT AND PLAN: Pleasant 68 y/o man with h/o HTN, DM , HTN, HL, s/p C3-7 fusion on 11/26/18 , who presented to Hospital for wound dehiscence 1- Cervical Wound dehiscence 2- cervical wound infection 3- S/p I&D and debridment on 12/31 4- S/p I&D on 01/02 5- H/o DM 6- H/o HTN plan : - cont with pain control - wound cxs noted. case was d/w Dr. Montanez. Zosyn was started - cont PT - cont neurontin - will dc IVF in am - avoid heparin per Dr. Victoria preference - add SCds - patient declines SQ SSI - will place on Victoza and Actos - Monitor
--- NOTE | 2019-01-02 20:16 | OP ---
DATE OF OPERATION: DATE OF DICTATION: 01/02/2019 SURGEON: Juan Manuel Victoria M.D. SURVEILLANCE SYSTEMS ANALYST: Ruy Victoria M.D. PREOPERATIVE DIAGNOSIS: Dehisced wound with wound VAC in situ, posterior cervical spine. POSTOPERATIVE DIAGNOSIS: Dehisced wound with wound VAC in situ, posterior cervical spine. OPERATION PERFORMED: Debridement of skin, muscles, bone, soft tissue, and incision, drainage, washout with 5 L saline and delayed primary closure (complex closure Stephanieutenbach sutures). OPERATION DETAILS: The patient was correctly identified, brought in operating room. Under general anesthesia was placed prone. Gel pads were used as a soft buttress to his chest. The head was placed in a simple horseshoe and complete control by the anesthesia team. This gave easy access to the back of the neck. The dressings were taken down, the wound VAC removed. A sterile sponge is placed into the wound, and the skin was cleansed with Betadine scrub solution, wiped off with alcohol, DuraPrep applied, and a window drape applied. The tissues were carefully evaluated after saline washout. Repeat cultures were taken, because this is what we have at the end of the debridement washout. The tissues were debrided, that is skin, subcutaneous tissue, muscle, as well as bone, using Leksell rongeurs. The bone was resected, as there was a superficial layer of fibrinous slough on the bone. This was removed completely down to healthy cancellous bone bed. A small amount of bone was removed. This measured approximately 0.5 cm at each tip of the spinous process. The tissues were soft. There was no significant induration. The color of the tissue is angry, red, indicative of capillary loops, minimal fibrosis at this stage of the granulation bed. using gentle persuasion with my fingers, I was able to easily approximate the soft tissue element deep as well as superficial, and the skin included. On the basis of this, we elected to go ahead with Stephenie sutures. These were monofilament PDS sutures measuring number 1. Multiple sutures were placed. of the suture was to enable closure of the deep soft tissues, and then followed the soft tissues more superficially with vertical mattress sutures, all in with 1 suture in itself. These were complex [id number] type sutures designed by Dr. Casiano for sepsis surgery. No need for any drainage, as the interrupted sutures would facilitate drainage from the wound with gravity as he lays supine. Good delayed primary closure was performed with gentle finger palpation between the sutures, we could easily feel that the deep space had been closed. The wounds were dressed with Xeroform and a padded dressing. Operation went well. No complications. He is on antibiotics at present, titrated to Enterobacter species. He is on Zosyn. MD TATI Brito/[id number]
[2019-01-02] MEDS ORDERED: FENOFIBRIC ACID 135 MG CAP PO SCH (22:00)
[2019-01-02] MEDS: CYCLOBENZAPRINE HCL 10 MG TABLET (FP) PO SCH (23:09)
[2019-01-02] MEDS: ROSUVASTATIN CA 20 MG TABLET (FP) PO SCH (23:09)
[2019-01-03] MEDS ORDERED: PIPERACILLIN/TAZOBACTAM 3.375 GM VIAL IVPB ONE ×3 (01:03→16:01)
[2019-01-03] MEDS ORDERED: DEXTROSE 5%-WATER - 50 ML IVPB ONE ×3 (01:04→16:01)
[2019-01-03] MEDS: oxyCODONE HCL 5 MG TABLET PO PRN ×6 (01:13→22:02)
[2019-01-03] MEDS: PIPERACILLIN/TAZOB 3.375 GM 3.375 GM in DEXTROSE 5%-WATER - 50 ML IVPB SCH ×3 (01:13→17:19)
[2019-01-03] MEDS: GABAPENTIN 400 MG CAPSULE (FP) PO SCH ×3 (06:56→21:56)
[2019-01-03] MEDS: DOCUSATE SODIUM 100 MG CAPSULE (FP) PO SCH ×3 (06:56→21:55)
[2019-01-03] MEDS: PIOGLITAZONE HCL 30 MG TABLET (FP) PO SCH (06:57)
[2019-01-03] MEDS ORDERED: PT OWN MED DRAWER 7, Y5N ONE ×3 (06:58→22:01)
[2019-01-03] MEDS ORDERED: LIRAGLUTIDE 0.6 MG/0.1 ML PEN.INJCTR SQ SCH (07:00)
[2019-01-03] MEDS: LACTATED RINGERS SOLUTION 1,000 ML IV SCH (07:01)
[2019-01-03 09:03] LABS: BASO % 1.1 % (0-2.0); EOS % 3.2 % (0-4.5); HEMATOCRIT 36.3 % (35.4-49); HEMOGLOBIN 12.2 GM/dL (11.7-16.9); LYMPH % 20.6 % (8-40); MCH 29.7 pg (25.7-33.7); MCHC 33.6 g/dl (32.0-35.9); MEAN CELL VOLUME 88.3 fl (80-96); MEAN PLT VOLUME 10.2 fl (7.5-11.1); MONO % 8.8 % (3.8-10.2); NEUT % 66.3 % (42.8-82.8); PLATELET COUNT 131 K/MM3 (134-434); RBC 4.11 M/mm3 (4.00-5.60); RDW 14.1 % (11.9-15.9); WHITE BLOOD COUNT 6.5 K/mm3 (4.0-10.0)
[2019-01-03 09:33] LABS: BLOOD UREA NITROGEN 15.6 mg/dL (7-18); CALCIUM 8.8 mg/dL (8.5-10.1); POTASSIUM 4.2 mmol/L (3.5-5.1)
--- NOTE | 2019-01-03 11:06 | PN ---
Progress Note (short form) - Note Progress Note: 68M s/p C3-C7 posterior instrumented spinal fusion (11/26/2018) now s/p I&D posterior cervical spine POD #1. Pain well controlled. No acute events overnight. Pt. denies overnight history of headaches, chest pain, shortness of breath, nausea, vomiting, chills, & sweats. (+) Voiding; (+) Flatus; (+) BM. (-) Dysphagia (tolerating normal diet); (-) Dysphonia. All labs and vitals reviewed. PE: AAO x 3, NAD. C-Spine: Dressing w/contained, expected serosanguinous drainage. B/L UE & LE NV status at baseline. 68M s/p C3-C7 posterior instrumented spinal fusion (11/26/2018) now s/p I&D posterior cervical spine POD #1. -Pain medication: per anaesthesia team; oral meds (oxycodone preferred), no FIRE ALARM MECHANIC ; NO NSAID's. -f/u OR wound cultures x 2. -Zosyn 4.5g IV q6h x 48 hours; then convert to oral antibiotics for discharge home. -DVT PPx: -Mechanical only: ANA's, SCD's. -f/u AM labs. -Incentive spirometry. -PT/OT/Rehab, OOB. -PWB B/L UE < 5lbs. -WBAT B/L LE. -Keep dressing clean & dry. -No heavy lifting (>5 lbs), bending or twisting x 6 months post op. -Start with soft diet; advance diet as tolerated. -B/L UE & LE NV checks. -Care per primary medical hospitalist team. -Discharge planning: Home. -Will follow. Ruy Victoria MD (Orthopaedic Surgery).
--- NOTE | 2019-01-03 13:54 | PN ---
Teaching Attending Note Name of Resident: Bony Armstrong ATTENDING PHYSICIAN STATEMENT I saw and evaluated the patient. I reviewed the resident's note and discussed the case with the resident. I agree with the resident's findings and plan as documented. SUBJECTIVE: No fever or chills. no FLORES .Neck pain is tolerable. OBJECTIVE: NAD CV: RRR LUngs: CTAB Ext : No edema Lungs: CTAB posterior neck wound with a surgical dressing ASSESSMENT AND PLAN: Pleasant 68 y/o man with h/o HTN, DM , HTN, HL, s/p C3-7 fusion on 11/26/18 , who presented to Hospital for wound dehiscence 1- Cervical Wound dehiscence 2- cervical wound infection 3- S/p I&D and debridment on 12/31 4- S/p I&D on 01/02 5- H/o DM 6- H/o HTN plan : - cont with pain control - wound cxs from sx on 01/02 is still pending . - cont zosyn - cont PT - cont neurontin - DC IVF - SCds - cont Victoza and Actos - will resume Jardiance if we carry it - Monitor
--- NOTE | 2019-01-03 17:32 | PN ---
Physical Exam: SUBJECTIVE: Patient seen and examined at bedside. No acute events overnight. Endorses feeling well. OBJECTIVE: Vital Signs Period Temp Pulse Resp BP Sys/Champion Pulse Ox Last 24 Hr 97.4 F-98.6 F 55-82 15-18 111-141/62-95 97-100 GENERAL: NAD, resting in bed HEAD: Normal with no signs of trauma. EYES: EOMI Sclera Clear ENT: MMM. NECK: Surgical dressing in place anterior neck. LUNGS: CTA b/l HEART: RRR S1S2 ABDOMEN: Soft, NDNT EXTREMITIES: No CCE NEUROLOGICAL: Cranial nerves II through XII grossly intact. Normal speech. PSYCH: Normal mood, normal affect. SKIN: Warm, dry, normal turgor, no rashes or lesions noted Laboratory Results - last 24 hr 01/03/19 01/03/19 01/03/19 06:55 08:30 08:30 WBC 6.5 RBC 4.11 Hgb 12.2 Hct 36.3 D MCV 88.3 MCH 29.7 MCHC 33.6 RDW 14.1 Plt Count 131 L MPV 10.2 D Absolute Neuts (auto) 4.3 Neutrophils % 66.3 Lymphocytes % 20.6 Monocytes % 8.8 Eosinophils % 3.2 Basophils % 1.1 Nucleated RBC % 0 Sodium 139 Potassium 4.2 Chloride 103 Carbon Dioxide 27 Anion Gap 8 BUN 15.6 Creatinine 1.0 Est GFR (CKD-EPI)AfAm 88.61 Est GFR (CKD-EPI)NonAf 76.45 POC Glucometer 126 Random Glucose 124 H Calcium 8.8 01/03/19 11:27 WBC RBC Hgb Hct MCV MCH MCHC RDW Plt Count MPV Absolute Neuts (auto) Neutrophils % Lymphocytes % Monocytes % Eosinophils % Basophils % Nucleated RBC % Sodium Potassium Chloride Carbon Dioxide Anion Gap BUN Creatinine Est GFR (CKD-EPI)AfAm Est GFR (CKD-EPI)NonAf POC Glucometer 122 Random Glucose Calcium Active Medications Generic Name Dose Route Start Last Admin Trade Name Freq PRN Reason Stop Dose Admin Acetaminophen 650 mg 01/02/19 19:19 01/03/19 05:07 Tylenol - PO 650 mg Q6H PRN Administration PAIN LEVEL 1-5 Cyclobenzaprine HCl 10 mg 01/02/19 22:00 01/02/19 23:09 Flexeril - PO 10 mg HS WEI Administration Docusate Sodium 100 mg 01/02/19 22:00 01/03/19 13:36 Colace - PO 100 mg TID WEI Administration Gabapentin 800 mg 01/02/19 22:00 01/03/19 13:36 Neurontin - PO 800 mg TID WEI Administration Piperacillin Sod/Tazobactam 50 mls @ 100 mls/hr 01/03/19 02:00 01/03/19 17:19 Sod 3.375 gm/ Dextrose IVPB 100 mls/hr Q8H-IV WEI Administration Protocol Liraglutide 1.2 mg 01/03/19 22:00 Victoza - SQ HS WEI Non-Formulary Medication 1 each 01/02/19 19:19 Cyclosporine [Restasis] OP PRN PRN DRY EYES Non-Formulary Medication 10 mg 01/04/19 10:00 Empagliflozin [Jardiance] PO DAILY WEI Non-Formulary Medication 1 each 01/03/19 13:55 Patient's Own Med PO DAILY WEI Ondansetron HCl 4 mg 01/02/19 19:19 Zofran Injection IVPUSH Q6H PRN NAUSEA AND/OR VOMITING Oxycodone HCl 15 mg 01/02/19 19:19 01/03/19 13:37 Roxicodone - PO 15 mg Q4H PRN Administration PAIN LEVEL 6-10 Pioglitazone HCl 30 mg 01/03/19 07:00 01/03/19 06:57 Actos - PO 30 mg DAILY@0700 WEI Administration Rosuvastatin Calcium 20 mg 01/02/19 22:00 01/02/19 23:09 Crestor - PO 20 mg HS WEI Administration ASSESSMENT/PLAN: 68 y/o M, pmh of spondylolysis, DMII, HLD, and HTN c/o neck pain. Pt is s/p cervical spine C3-C7 posterior fusion on 11/26/18, presents with surgical wound dehiscence #Surgical wound dehiscence -s/p I&D posterior cervical spine -I&D- likely infectious -Started on Zosyn -Adequate dressing changes -Oxycodone 15 mg PO Q4H PRN #JAMA -LR at 100 -monitor renal function #DM -Resumed Jardiance, Victoza, Actose. Medications verified with patient. #Spondylolysis -Chronic FEN Diabetic Diet No Fluids Monitor Electrolytes #DVT ppx -SCD Dispo: med-surg Visit type - Emergency Visit Emergency Visit: Yes ED Registration Date: 12/30/18 Care time: The patient presented to the Emergency Department on the above date and was hospitalized for further evaluation of their emergent condition. - New Patient This patient is new to me today: No - Critical Care Critical Care patient: No - Discharge Referral Referred to [facility] Med P.C.: No ATTENDING PHYSICIAN STATEMENT I saw and evaluated the patient. I reviewed the resident's note and discussed the case with the resident. I agree with the resident's findings and plan as documented. SUBJECTIVE: OBJECTIVE: ASSESSMENT AND PLAN:
[2019-01-03] MEDS: LIRAGLUTIDE 0.6 MG/0.1 ML PEN.INJCTR SQ SCH (21:56)
[2019-01-03] MEDS: ROSUVASTATIN CA 20 MG TABLET (FP) PO SCH (21:56)
[2019-01-03] MEDS: CYCLOBENZAPRINE HCL 10 MG TABLET (FP) PO SCH (23:33)
[2019-01-04] MEDS ORDERED: PIPERACILLIN/TAZOBACTAM 3.375 GM VIAL IVPB ONE ×3 (01:23→17:06)
[2019-01-04] MEDS ORDERED: DEXTROSE 5%-WATER - 50 ML IVPB ONE ×3 (01:23→17:06)
[2019-01-04] MEDS: PIPERACILLIN/TAZOB 3.375 GM 3.375 GM in DEXTROSE 5%-WATER - 50 ML IVPB SCH ×3 (01:31→17:30)
[2019-01-04] MEDS: oxyCODONE HCL 5 MG TABLET PO PRN ×4 (02:15→20:11)
--- NOTE | 2019-01-04 05:27 | PN ---
Progress Note, Physician Chief Complaint: s/p I&D cervical wound post op day one History of Present Illness: under general anesthesia - Current Medication List Current Medications: Active Medications Acetaminophen (Tylenol -) 650 mg PO Q6H PRN PRN Reason: PAIN LEVEL 1-5 Last Admin: 01/03/19 05:07 Dose: 650 mg Cyclobenzaprine HCl (Flexeril -) 10 mg PO HS [facility] Last Admin: 01/03/19 23:33 Dose: 10 mg Gabapentin (Neurontin -) 800 mg PO TID [facility] Last Admin: 01/03/19 21:56 Dose: 800 mg Piperacillin Sod/Tazobactam (Sod 3.375 gm/ Dextrose) 50 mls @ 100 mls/hr IVPB Q8H-IV WEI; Protocol Last Admin: 01/04/19 01:31 Dose: 100 mls/hr Liraglutide (Victoza -) 1.2 mg SQ HS [facility] Last Admin: 01/03/19 21:56 Dose: 1.2 mg Non-Formulary Medication (Cyclosporine [Restasis]) 1 each OP PRN PRN PRN Reason: DRY EYES Non-Formulary Medication (Empagliflozin [Jardiance]) 10 mg PO DAILY [facility] Non-Formulary Medication (Patient's Own Med) 1 each PO DAILY [facility] Ondansetron HCl (Zofran Injection) 4 mg IVPUSH Q6H PRN PRN Reason: NAUSEA AND/OR VOMITING Oxycodone HCl (Roxicodone -) 15 mg PO Q4H PRN PRN Reason: PAIN LEVEL 6-10 Last Admin: 01/03/19 22:02 Dose: 15 mg Pioglitazone HCl (Actos -) 30 mg PO DAILY@0700 [facility] Last Admin: 01/03/19 06:57 Dose: 30 mg Rosuvastatin Calcium (Crestor -) 20 mg PO HS [facility] Last Admin: 01/03/19 21:56 Dose: 20 mg - Objective Vital Signs: Vital Signs Temperature 98.5 F 01/03/19 20:00 Pulse Rate 70 01/03/19 20:00 Respiratory Rate 18 01/03/19 21:00 Blood Pressure 132/66 01/03/19 20:00 O2 Sat by Pulse Oximetry (%) 98 01/03/19 21:00 Constitutional: Yes: Well Nourished Cardiovascular: Yes: WNL Respiratory: Yes: WNL Gastrointestinal: Yes: WNL Labs: CBC, BMP 01/03/19 08:30 01/03/19 08:30 INR, PTT INR 1.08 (0.83-1.09) 12/30/18 18:44 Assessment/Plan patient doing well, no adverse anesthetic complications, pain controlled, dept of anesthesia will sign off case at this time
[2019-01-04] MEDS ORDERED: PT OWN MED DRAWER 7, Y5N ONE ×4 (06:11→22:19)
[2019-01-04] MEDS: GABAPENTIN 400 MG CAPSULE (FP) PO SCH ×4 (06:15→22:09)
[2019-01-04] MEDS: PIOGLITAZONE HCL 30 MG TABLET (FP) PO SCH (06:16)
[2019-01-04] MEDS ORDERED: diazePAM 5 MG TABLET PO PRN (08:21)
[2019-01-04] MEDS ORDERED: PATIENT'S OWN MEDICATION (NON-FORMULARY) (Empagliflozin [Jardiance] 10 MG) PO SCH (10:00)
[2019-01-04 10:19] LABS: HEMATOCRIT 43.4 % (35.4-49); HEMOGLOBIN 14.7 GM/dL (11.7-16.9); MCHC 33.8 g/dl (32.0-35.9); MEAN CELL VOLUME 88.8 fl (80-96); MEAN PLT VOLUME 10.1 fl (7.5-11.1); PLATELET COUNT 164 K/MM3 (134-434); RBC 4.89 M/mm3 (4.00-5.60); RDW 14.2 % (11.9-15.9); WHITE BLOOD COUNT 7.9 K/mm3 (4.0-10.0)
--- NOTE | 2019-01-04 10:28 | PN ---
Progress Note (short form) - Note Progress Note: ORTHOPAEDIC SPINE SURGERY POD #2 s/p C3-C7 posterior instrumented spinal fusion (11/26/2018) now s/p I&D posterior cervical spine Alert. Sitting up in bed. Not wearing his c-collar. C/o mild incisional tenderness. Adequate pain control with medications ordered. No acute events per RN notes. He's gotten OOB and ambulating without assistance. Denies n/v/f/c, CP, palpitations, SOB or LOPEZ. Denies HAs, dysphagis or dysphonia. Denies UE numbness. Last Vital Signs Temp Pulse Resp BP Pulse Ox 98.0 F 72 20 150/78 98 01/04/19 09:41 01/04/19 09:41 01/04/19 09:41 01/04/19 09:41 01/03/19 21:00 CBC, BMP 01/04/19 10:00 01/04/19 09:50 GEN: NAD Neck: Posterior dressing saturated. Dressing taken down on rounds. Prolene sutures intact. No purulent drainage. No hematoma. Mild periwound erythema Neuro: GMNVI all extrem. Problem List - Problems (1) Wound dehiscence, surgical Assessment/Plan: POD #2 s/p C3-C7 posterior instrumented spinal fusion (11/26/2018) now s/p I&D posterior cervical spine - f/u OR wound cultures x 2. - cont Zosyn 4.5g IV q6h - will need PICC placed on 01/07/19 then can be dc'd home -DVT PPx: -Mechanical only: ANA's, SCD's. -Incentive spirometry. -PT/OT/Rehab, OOB. -PWB B/L UE < 5lbs. -WBAT B/L LE. -Dressing changed on rounds, keep clean & dry. -No heavy lifting (>5 lbs), bending or twisting x 6 months post op. -Regular diet -B/L UE & LE NV checks. -Care per primary medical hospitalist team. -Discharge planning 01/07/19 Above plan discussed with both Ruy & Juan Manuel Victoria and agreed. Code(s): T81.31XA - DISRUPTION OF EXTERNAL OPERATION (SURGICAL) WOUND, NEC, INIT Qualifiers: Encounter type: initial encounter Qualified Code(s): T81.31XA - Disruption of external operation (surgical) wound, not elsewhere classified, initial encounter
[2019-01-04 10:40] LABS: BLOOD UREA NITROGEN 14.7 mg/dL (7-18); CALCIUM 9.7 mg/dL (8.5-10.1); CREATININE 1.2 mg/dL (0.55-1.3); POTASSIUM 4.3 mmol/L (3.5-5.1)
[2019-01-04] MEDS: FENOFIBRIC ACID 135 MG CAP PO SCH (11:14)
[2019-01-04] MEDS: DOCUSATE SODIUM 100 MG CAPSULE (FP) PO SCH (12:35)
[2019-01-04] MEDS: INSULIN SLIDING SCALE (NOVOLOG) 1 VIAL SQ SCH (12:36)
--- NOTE | 2019-01-04 13:09 | CON.ID ---
Consult Consult Specialty:: infectious diseases Referred by:: Reason for Consultation:: cervical wound infection - History of Present Illness Chief Complaint: cervical wound breakdown History of Present Illness: 68 y/o male PMH spondylolysis, DMII, HLD, and HTN s/p cervical spine C3-C7 posterior fusion on 26 Nov 2018. On 27 Dec 2018 he reports feeling a pop from the back of his neck while sitting at home with a friend and found that there was leaking occurring from his wound .he went to dr licea who advised him to be admitted. patient then underwent couple of washouts and currently he feels better except pain in the neck. He remains an active smoker 1/ ppd. The pt reports extensive surgical history, including many back surgeries. 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: Alzheimer's, CVA, Dementia, Migraine, Multiple Sclerosis, Peripheral Neuropathy, Parkinson's, Seizure, Syncope, TIA, Vertigo, Other Cardio/Vascular: Yes: AFIB, Aneurysm, Aortic Insufficiency, Aortic Stenosis, CAD , CHF, Deep Vein Thrombosis, HTN, Hyperlipdemia, CA, Mitral Insufficiency, Mitral Stenosis, Murmur, Pulmonary Hypertension, Other Pulmonary: Yes: Asthma, Bronchitis, Cancer, COPD, O2 Dependent, Pneumonia, Previously Intubated, Pulmonary Embolus, Pulmonary Fibrosis, Sleep Apnea, Other Psych: Yes: Anxiety Musculoskeletal: Yes: Other (Previous cevical spinal stenosis with myelopathy) - Past Surgical History Past Surgical History: Yes: None, AAA Repair, AICD, Amputation, Appendectomy, Arthrosocopy, AV Fistula/Graft, Bariatric Surgery, Breast Biopsy, Bypass, CABG, Carotid Endarterectomy, Cataract Removal, Cholecystectomy, Colectomy, Colonoscopy, Colostomy, Craniotomy, , Cystectomy, Hernia Repair, Hysterectomy, Ileal Conduit, Ileosotomy, Joint Replacement, Kidney Transplant, Laminectomy, Liver Transplant, Mastectomy, Nephrectomy, Oopherectomy, Orchiectomy, Permanent Pacemaker, Prostatectomy, Splenectomy, Stent, Thoracotomy , TURP, Tonsillectomy, Tubal Ligation, Upper Endoscopy, Valve Replacement, Vasectomy, Vein Stripping/Ligation - Alcohol/Substance Use Hx Alcohol Use: No History of Substance Use: reports: None, Cocaine, Heroin, Marijuana, Prescription, Tranquilizers Date of Last Use: 12/28/18 - Smoking History Smoking history: Never smoked Have you smoked in the past 12 months: Yes Aproximately how many cigarettes per day: 20 - Social History Usual Living Arrangement: Alone ADL: Independent Home Medications - Allergies Allergies/Adverse Reactions: Allergies Allergy/AdvReac Type Severity Reaction Status Date / Time No Known Allergies Allergy Verified 12/30/18 15:15 - Home Medications Home Medications: Ambulatory Orders Acetaminophen/Caffeine/Butalb [Fioricet -] 1 tablet PO PRN PRN 11/26/18 Carisoprodol [Soma] 350 mg PO PRN PRN 11/26/18 Cyclosporine [Restasis] 1 each OP PRN PRN 11/26/18 Empagliflozin [Jardiance] 10 mg PO DAILY 11/26/18 Fenofibrate Nanocrystallized [Fenofibrate] 145 mg PO DAILY 11/26/18 Gabapentin 800 mg PO TID 11/26/18 Lansoprazole [Prevacid] 15 mg PO DAILY 11/26/18 Liraglutide [Victoza -] 1.2 mg SQ DAILY@0700 11/26/18 Oxycodone HCl/Acetaminophen [Percocet 10-325 mg Tablet] 1 each PO Q6H PRN Pioglitazone HCl [Actos] 30 mg PO DAILY 11/26/18 Rosuvastatin [Crestor -] 20 mg PO DAILY 11/26/18 Cyclobenzaprine HCl [Flexeril -] 10 mg PO HS #28 tablet 11/27/18 Diazepam 1 tablet PO QID 01/01/19 Zolpidem Tartrate [Ambien] 20 mg PO HS 01/01/19 Review of Systems - Review of Systems Constitutional: reports: No Symptoms Eyes: reports: No Symptoms HENT: reports: No Symptoms Neck: reports: Other (neck pain) Cardiovascular: reports: No Symptoms Respiratory: reports: No Symptoms Gastrointestinal: reports: No Symptoms Genitourinary: reports: No Symptoms Musculoskeletal: reports: Other Integumentary: reports: Other (wound was draining) Neurological: reports: No Symptoms Endocrine: reports: No Symptoms Hematology/Lymphatic: reports: No Symptoms Psychiatric: reports: No Symptoms Physical Exam Vital Signs: Vital Signs Temperature 98.0 F 01/04/19 09:41 Pulse Rate 72 01/04/19 09:41 Respiratory Rate 20 01/04/19 09:41 Blood Pressure 150/78 01/04/19 09:41 O2 Sat by Pulse Oximetry (%) 98 01/03/19 21:00 Constitutional: Yes: Well Nourished, Calm, Mild Distress HENT: Yes: Other (neck with dressing on the wound,site looks good) Cardiovascular: Yes: Regular Rate and Rhythm Respiratory: Yes: Regular, CTA Bilaterally Gastrointestinal: Yes: Normal Bowel Sounds, Soft Musculoskeletal: Yes: WNL Extremities: Yes: WNL Wound/Incision: Yes: Dressing Dry and Intact, Other (site around the wound looks good) Neurological: Yes: Alert, Oriented Psychiatric: Yes: Alert, Oriented Labs: CBC, BMP 01/04/19 10:00 01/04/19 09:50 Imaging - Results Chest X-ray: Report Reviewed, Image Reviewed Assessment/Plan 68 y/o man with h/o HTN, DM , HTN, HL, s/p C3-7 fusion on 11/26/18 , who presented to Hospital for wound dehiscence cervical wound dehiscence wound infection dm htn smoker plan await for identification of the organism wound care continue abx rest as per the team
--- NOTE | 2019-01-04 14:50 | PN ---
Physical Exam: SUBJECTIVE: Patient seen and examined at bedside. No acute events overnight. Endorses feeling well and improved since admission. Denies f/c/n/v/d/sob/chest pain. OBJECTIVE: Vital Signs Period Temp Pulse Resp BP Sys/Champion Pulse Ox Last 24 Hr 97.9 F-98.5 F 55-72 18-20 109-150/59-78 98 GENERAL: NAD, resting in bed HEAD: Normal with no signs of trauma. EYES: EOMI Sclera Clear ENT: MMM. NECK: Surgical dressing in place anterior neck. LUNGS: CTA b/l HEART: RRR S1S2 ABDOMEN: Soft, NDNT EXTREMITIES: No CCE NEUROLOGICAL: Cranial nerves II through XII grossly intact. Normal speech. PSYCH: Normal mood, normal affect. SKIN: Warm, dry, normal turgor, no rashes or lesions noted Laboratory Results - last 24 hr CBC,CMP WBC 7.9 K/mm3 (4.0-10.0) 01/04/19 10:00 RBC 4.89 M/mm3 (4.00-5.60) 01/04/19 10:00 Hgb 14.7 GM/dL (11.7-16.9) 01/04/19 10:00 Hct 43.4 % (35.4-49) D 01/04/19 10:00 MCV 88.8 fl (80-96) 01/04/19 10:00 MCH 30.0 pg (25.7-33.7) 01/04/19 10:00 MCHC 33.8 g/dl (32.0-35.9) 01/04/19 10:00 RDW 14.2 % (11.9-15.9) 01/04/19 10:00 Plt Count 164 K/MM3 (134-434) D 01/04/19 10:00 MPV 10.1 fl (7.5-11.1) 01/04/19 10:00 Absolute Neuts (auto) 4.3 K/mm3 (1.5-8.0) 01/03/19 08:30 Neutrophils % 66.3 % (42.8-82.8) 01/03/19 08:30 Lymphocytes % 20.6 % (8-40) 01/03/19 08:30 Monocytes % 8.8 % (3.8-10.2) 01/03/19 08:30 Eosinophils % 3.2 % (0-4.5) 01/03/19 08:30 Basophils % 1.1 % (0-2.0) 01/03/19 08:30 Nucleated RBC % 0 % (0-0) 01/03/19 08:30 Sodium 138 mmol/L (136-145) 01/04/19 09:50 Potassium 4.3 mmol/L (3.5-5.1) 01/04/19 09:50 Chloride 103 mmol/L (98-107) 01/04/19 09:50 Carbon Dioxide 29 mmol/L (21-32) 01/04/19 09:50 Anion Gap 7 MMOL/L (8-16) L 01/04/19 09:50 BUN 14.7 mg/dL (7-18) 01/04/19 09:50 Creatinine 1.2 mg/dL (0.55-1.3) 01/04/19 09:50 Est GFR (CKD-EPI)AfAm 71.08 01/04/19 09:50 Est GFR (CKD-EPI)NonAf 61.33 01/04/19 09:50 POC Glucometer 118 UNITS (80-120) 01/04/19 11:56 Random Glucose 111 mg/dL (74-106) H 01/04/19 09:50 Calcium 9.7 mg/dL (8.5-10.1) 01/04/19 09:50 Phosphorus 3.2 mg/dL (2.5-4.9) 12/31/18 07:05 Magnesium 1.9 mg/dL (1.8-2.4) 12/31/18 07:05 Total Bilirubin 0.4 mg/dL (0.2-1) 01/02/19 07:40 AST 16 U/L (15-37) 01/02/19 07:40 ALT 14 U/L (13-61) 01/02/19 07:40 Alkaline Phosphatase 48 U/L (45-117) 01/02/19 07:40 Total Protein 7.1 g/dl (6.4-8.2) 01/02/19 07:40 Albumin 3.9 g/dl (3.4-5.0) 01/02/19 07:40 Active Medications Current Medications Acetaminophen (Tylenol -) 650 mg PO Q6H PRN PRN Reason: PAIN LEVEL 1-5 Last Admin: 01/03/19 05:07 Dose: 650 mg Cyclobenzaprine HCl (Flexeril -) 10 mg PO HS [facility] Last Admin: 01/03/19 23:33 Dose: 10 mg Diazepam (Valium -) 10 mg PO HS PRN PRN Reason: ANXIETY Stop: 01/07/19 21:59 Docusate Sodium (Colace -) 100 mg PO BID PRN PRN Reason: CONSTIPATION Fenofibric Acid (Trilipix -) 135 mg PO DAILY [facility] Last Admin: 01/04/19 11:14 Dose: 135 mg Gabapentin (Neurontin -) 800 mg PO TID [facility] Last Admin: 01/04/19 14:20 Dose: 800 mg Piperacillin Sod/Tazobactam (Sod 3.375 gm/ Dextrose) 50 mls @ 100 mls/hr IVPB Q8H-IV [facility]; Protocol Last Admin: 01/04/19 11:14 Dose: 100 mls/hr Liraglutide (Victoza -) 1.2 mg SQ HS [facility] Last Admin: 01/03/19 21:56 Dose: 1.2 mg Non-Formulary Medication (Cyclosporine [Restasis]) 1 each OP PRN PRN PRN Reason: DRY EYES Non-Formulary Medication (Patient's Own Med) 1 each PO DAILY [facility] Non-Formulary Medication (Patient's Own Med) 1 each PO DAILY [facility] Ondansetron HCl (Zofran Injection) 4 mg IVPUSH Q6H PRN PRN Reason: NAUSEA AND/OR VOMITING Oxycodone HCl (Roxicodone -) 15 mg PO Q4H PRN PRN Reason: PAIN LEVEL 6-10 Last Admin: 01/04/19 14:21 Dose: 15 mg Pioglitazone HCl (Actos -) 30 mg PO DAILY@0700 [facility] Last Admin: 01/04/19 06:16 Dose: 30 mg Rosuvastatin Calcium (Crestor -) 20 mg PO HS [facility] Last Admin: 01/03/19 21:56 Dose: 20 mg Senna (Senna -) 2 tab PO HS PRN PRN Reason: CONSTIPATION Home Medications Medication Instructions Recorded Acetaminophen/Caffeine/Butalb 1 tablet PO PRN PRN 11/26/18 [Fioricet -] Carisoprodol [Soma] 350 mg PO PRN PRN 11/26/18 Cyclosporine [Restasis] 1 each OP PRN PRN 11/26/18 Empagliflozin [Jardiance] 10 mg PO DAILY 11/26/18 Fenofibrate Nanocrystallized 145 mg PO DAILY 11/26/18 [Fenofibrate] Gabapentin 800 mg PO TID 11/26/18 Lansoprazole [Prevacid] 15 mg PO DAILY 11/26/18 Liraglutide [Victoza -] 1.2 mg SQ DAILY@0700 11/26/18 Oxycodone HCl/Acetaminophen 1 each PO Q6H PRN 11/26/18 [Percocet 10-325 mg Tablet] Pioglitazone HCl [Actos] 30 mg PO DAILY 11/26/18 Rosuvastatin [Crestor -] 20 mg PO DAILY 11/26/18 Cyclobenzaprine HCl [Flexeril -] 10 mg PO HS #28 tablet 11/27/18 Diazepam 1 tablet PO QID 01/01/19 Zolpidem Tartrate [Ambien] 20 mg PO HS 01/01/19 Microbiology 01/02/19 18:00 Tissue-Other Gram Stain - Final 01/02/19 18:00 Tissue-Other Tissue Culture - Preliminary Lactose Fermenting Neg Bacilli 01/02/19 18:00 Wound Gram Stain - Final 01/02/19 18:00 Wound Wound Culture - Preliminary 01/02/19 18:00 Wound Gram Stain - Final 01/02/19 18:00 Wound Wound Culture - Preliminary NO GROWTH OBTAINED AFTER 24 HOURS INCUBATION, REINCUBATED. 12/31/18 12:48 Wound Gram Stain - Final 12/31/18 12:48 Wound Wound Culture - Final Enterobacter Cloacae 12/31/18 12:48 Wound AFB Smear Concentration - Final 12/31/18 12:48 Wound Mycobacterial Culture - Preliminary 12/31/18 12:48 Wound Gram Stain - Final 12/31/18 12:48 Wound Wound Culture - Final Enterobacter Cloacae Staphylococcus Coagulase Neg 12/31/18 12:48 Wound Gram Stain - Final 12/31/18 12:48 Wound Wound Culture - Final Enterobacter Cloacae 12/31/18 12:48 Wound ALLAN Preparation - Preliminary 12/31/18 12:48 Wound Fungal Culture - Preliminary ASSESSMENT/PLAN: 68 y/o M, pmh of spondylolysis, DMII, HLD, and HTN c/o neck pain. Pt is s/p cervical spine C3-C7 posterior fusion on 11/26/18, presents with surgical wound dehiscence #Surgical wound dehiscence s/p I&D posterior cervical spine cont Zosyn Adequate dressing changes Oxycodone 15 mg PO Q4H PRN Valium 10mg Flexeril #JAMA Now resolved monitor renal function #DM Resumed Jardiance, Victoza, Actose- Medications verified with patient. #Constipation colace and senna #Spondylolysis Chronic #DVT ppx SCD #FEN Regular diet Monitor Electrolytes Dispo: monitor, speak with surgery about plan Visit type - Emergency Visit Emergency Visit: Yes ED Registration Date: 12/30/18 Care time: The patient presented to the Emergency Department on the above date and was hospitalized for further evaluation of their emergent condition. - New Patient This patient is new to me today: Yes Date on this admission: 01/04/19 - Critical Care Critical Care patient: No - Discharge Referral Referred to [facility] No ATTENDING PHYSICIAN STATEMENT I saw and evaluated the patient. I reviewed the resident's note and discussed the case with the resident. I agree with the resident's findings and plan as documented. SUBJECTIVE: OBJECTIVE: ASSESSMENT AND PLAN:
[2019-01-04] MEDS: DOCUSATE SODIUM 100 MG CAPSULE (FP) PO PRN (15:39)
--- NOTE | 2019-01-04 19:20 | PN ---
Teaching Attending Note Name of Resident: Briseida Loving ATTENDING PHYSICIAN STATEMENT I saw and evaluated the patient. I reviewed the resident's note and discussed the case with the resident. I agree with the resident's findings and plan as documented. SUBJECTIVE: Minimal pain in neck . No weakness or tingling or numbness OBJECTIVE: NAD CV: RRR LUngs: CTAB Ext : No edema Lungs: CTAB posterior neck with a small clean gauze Neuro : strength 5/5 in upper and lower extremities proximally and distally. reflexes 2+ biceps and knee jerk b/l ASSESSMENT AND PLAN: Pleasant 68 y/o man with h/o HTN, DM , HTN, HL, s/p C3-7 fusion on 11/26/18 , who presented to Hospital for wound dehiscence 1- Cervical Wound dehiscence 2- cervical wound infection 3- S/p I&D and debridment on 12/31 4- S/p I&D on 01/02 5- H/o DM 6- H/o HTN plan : - Cont Abx for now - Follow final cx - D/w dr. Montanez, plan for Abx to be determined depending on cx - D/w Dr. Juan Manuel Victoria. wound inspection on Monday - cont oxy - add home diazepam - add home fibrate - cont statin - cont neurontin - SCds - cont Victoza and Actos - we dont carry Jardiance . pt to bring frm home - Monitor
[2019-01-04] MEDS: ROSUVASTATIN CA 20 MG TABLET (FP) PO SCH (22:09)
[2019-01-04] MEDS: LIRAGLUTIDE 0.6 MG/0.1 ML PEN.INJCTR SQ SCH (22:11)
[2019-01-04] MEDS: diazePAM 5 MG TABLET PO PRN (23:04)
[2019-01-04] MEDS: SENNOSIDES 8.6MG TABLET (FP) PO PRN (23:05)
[2019-01-04] MEDS: CYCLOBENZAPRINE HCL 10 MG TABLET (FP) PO SCH (23:05)
[2019-01-05] MEDS ORDERED: PIPERACILLIN/TAZOBACTAM 3.375 GM VIAL IVPB ONE ×3 (00:19→17:02)
[2019-01-05] MEDS ORDERED: DEXTROSE 5%-WATER - 50 ML IVPB ONE ×3 (00:19→17:02)
[2019-01-05] MEDS: PIPERACILLIN/TAZOB 3.375 GM 3.375 GM in DEXTROSE 5%-WATER - 50 ML IVPB SCH ×3 (01:15→17:05)
[2019-01-05] MEDS: GABAPENTIN 400 MG CAPSULE (FP) PO SCH ×3 (05:35→21:14)
[2019-01-05] MEDS ORDERED: PT OWN MED DRAWER 7, Y5N ONE ×3 (05:50→21:01)
[2019-01-05] MEDS: PIOGLITAZONE HCL 30 MG TABLET (FP) PO SCH (06:39)
[2019-01-05] MEDS: oxyCODONE HCL 5 MG TABLET PO PRN ×4 (08:16→21:54)
[2019-01-05 09:05] LABS: HEMATOCRIT 41.8 % (35.4-49); MCH 29.5 pg (25.7-33.7); MCHC 33.6 g/dl (32.0-35.9); MEAN CELL VOLUME 87.7 fl (80-96); MEAN PLT VOLUME 10.4 fl (7.5-11.1); PLATELET COUNT 154 K/MM3 (134-434); RBC 4.76 M/mm3 (4.00-5.60); RDW 13.7 % (11.9-15.9)
[2019-01-05 09:28] LABS: BLOOD UREA NITROGEN 15.8 mg/dL (7-18); CALCIUM 9.3 mg/dL (8.5-10.1); CREATININE 1.2 mg/dL (0.55-1.3); POTASSIUM 4.6 mmol/L (3.5-5.1)
[2019-01-05] MEDS: FENOFIBRIC ACID 135 MG CAP PO SCH (10:51)
--- NOTE | 2019-01-05 10:57 | PN ---
Progress Note, Physician History of Present Illness: stable doing well - Current Medication List Current Medications: Active Medications Acetaminophen (Tylenol -) 650 mg PO Q6H PRN PRN Reason: PAIN LEVEL 1-5 Last Admin: 01/03/19 05:07 Dose: 650 mg Cyclobenzaprine HCl (Flexeril -) 10 mg PO HS [facility] Last Admin: 01/04/19 23:05 Dose: 10 mg Diazepam (Valium -) 10 mg PO HS PRN PRN Reason: ANXIETY Stop: 01/07/19 21:59 Last Admin: 01/04/19 23:04 Dose: 10 mg Docusate Sodium (Colace -) 100 mg PO Q12H PRN PRN Reason: CONSTIPATION Last Admin: 01/04/19 15:39 Dose: 100 mg Fenofibric Acid (Trilipix -) 135 mg PO DAILY [facility] Last Admin: 01/05/19 10:51 Dose: 135 mg Gabapentin (Neurontin -) 800 mg PO TID [facility] Last Admin: 01/05/19 05:35 Dose: 800 mg Piperacillin Sod/Tazobactam (Sod 3.375 gm/ Dextrose) 50 mls @ 100 mls/hr IVPB Q8H-IV WEI; Protocol Last Admin: 01/05/19 10:48 Dose: 100 mls/hr Liraglutide (Victoza -) 1.2 mg SQ HS [facility] Last Admin: 01/04/19 22:11 Dose: 1.2 mg Non-Formulary Medication (Cyclosporine [Restasis]) 1 each OP PRN PRN PRN Reason: DRY EYES Non-Formulary Medication (Patient's Own Med) 1 each PO DAILY [facility] Non-Formulary Medication (Patient's Own Med) 1 each PO DAILY [facility] Ondansetron HCl (Zofran Injection) 4 mg IVPUSH Q6H PRN PRN Reason: NAUSEA AND/OR VOMITING Oxycodone HCl (Roxicodone -) 15 mg PO Q4H PRN PRN Reason: PAIN LEVEL 6-10 Last Admin: 01/05/19 08:16 Dose: 15 mg Pioglitazone HCl (Actos -) 30 mg PO DAILY@0700 [facility] Last Admin: 01/05/19 06:39 Dose: 30 mg Rosuvastatin Calcium (Crestor -) 20 mg PO HS [facility] Last Admin: 01/04/19 22:09 Dose: 20 mg Senna (Senna -) 2 tab PO HS PRN PRN Reason: CONSTIPATION Last Admin: 01/04/19 23:05 Dose: 2 tab - Objective Vital Signs: Vital Signs Temperature 98.7 F 01/04/19 19:57 Pulse Rate 56 L 01/04/19 19:57 Respiratory Rate 16 01/04/19 21:00 Blood Pressure 131/69 01/04/19 19:57 O2 Sat by Pulse Oximetry (%) 98 01/04/19 21:00 Constitutional: Yes: No Distress, Calm Cardiovascular: Yes: S1, S2 Respiratory: Yes: Regular, CTA Bilaterally Gastrointestinal: Yes: Normal Bowel Sounds, Soft Musculoskeletal: Yes: WNL Extremities: Yes: Other Wound/Incision: Yes: Dressing Dry and Intact Neurological: Yes: Alert, Oriented Psychiatric: Yes: Alert, Oriented Labs: CBC, BMP 01/05/19 07:55 01/05/19 07:55 INR, PTT INR 1.08 (0.83-1.09) 12/30/18 18:44 Assessment/Plan 68 y/o man with h/o HTN, DM , HTN, HL, s/p C3-7 fusion on 11/26/18 , who presented to Hospital for wound dehiscence cervical wound dehiscence wound infection dm htn smoker plan await for identification of the organism wound care continue abx rest as per the team
--- NOTE | 2019-01-05 12:03 | PN ---
Physical Exam: SUBJECTIVE: Patient seen and examined Patient seen and examined at bedside. No acute events overnight. Pt appears much more improved, no c/o or issues. Pt is walking around and cooperating with staff. Denies f/c/n/v/d/sob/chest pain. OBJECTIVE: Vital Signs Period Temp Pulse Resp BP Sys/Champion Pulse Ox Last 24 Hr 98.1 F-98.7 F 56-80 16-20 131-132/69-80 98 GENERAL: NAD, AOx, pt cooperative, pleasant and walking around HEAD: Normal with no signs of trauma. AT/AC EYES: EOMI, Sclera Clear, PERRLA NECK: Surgical dressing in posterior neck- no drainage, no purulent discharge, dressing intact LUNGS: CTA b/l HEART: RRR S1S2 ABDOMEN: Soft, NDNT NEUROLOGICAL: Cranial nerves II through XII grossly intact. Normal speech. PSYCH: Normal mood, normal affect. SKIN: Warm, dry, normal turgor, Laboratory Results - last 24 hr CBC,CMP WBC 7.0 K/mm3 (4.0-10.0) 01/05/19 07:55 RBC 4.76 M/mm3 (4.00-5.60) 01/05/19 07:55 Hgb 14.0 GM/dL (11.7-16.9) 01/05/19 07:55 Hct 41.8 % (35.4-49) 01/05/19 07:55 MCV 87.7 fl (80-96) 01/05/19 07:55 MCH 29.5 pg (25.7-33.7) 01/05/19 07:55 MCHC 33.6 g/dl (32.0-35.9) 01/05/19 07:55 RDW 13.7 % (11.9-15.9) 01/05/19 07:55 Plt Count 154 K/MM3 (134-434) 01/05/19 07:55 MPV 10.4 fl (7.5-11.1) 01/05/19 07:55 Absolute Neuts (auto) 4.3 K/mm3 (1.5-8.0) 01/03/19 08:30 Neutrophils % 66.3 % (42.8-82.8) 01/03/19 08:30 Lymphocytes % 20.6 % (8-40) 01/03/19 08:30 Monocytes % 8.8 % (3.8-10.2) 01/03/19 08:30 Eosinophils % 3.2 % (0-4.5) 01/03/19 08:30 Basophils % 1.1 % (0-2.0) 01/03/19 08:30 Nucleated RBC % 0 % (0-0) 01/03/19 08:30 Sodium 137 mmol/L (136-145) 01/05/19 07:55 Potassium 4.6 mmol/L (3.5-5.1) 01/05/19 07:55 Chloride 104 mmol/L (98-107) 01/05/19 07:55 Carbon Dioxide 29 mmol/L (21-32) 01/05/19 07:55 Anion Gap 5 MMOL/L (8-16) L 01/05/19 07:55 BUN 15.8 mg/dL (7-18) 01/05/19 07:55 Creatinine 1.2 mg/dL (0.55-1.3) 01/05/19 07:55 Est GFR (CKD-EPI)AfAm 71.08 01/05/19 07:55 Est GFR (CKD-EPI)NonAf 61.33 01/05/19 07:55 POC Glucometer 133 UNITS (80-120) 01/05/19 10:58 Random Glucose 114 mg/dL (74-106) H 01/05/19 07:55 Calcium 9.3 mg/dL (8.5-10.1) 01/05/19 07:55 Phosphorus 3.2 mg/dL (2.5-4.9) 12/31/18 07:05 Magnesium 1.9 mg/dL (1.8-2.4) 12/31/18 07:05 Total Bilirubin 0.4 mg/dL (0.2-1) 01/02/19 07:40 AST 16 U/L (15-37) 01/02/19 07:40 ALT 14 U/L (13-61) 01/02/19 07:40 Alkaline Phosphatase 48 U/L (45-117) 01/02/19 07:40 Total Protein 7.1 g/dl (6.4-8.2) 01/02/19 07:40 Albumin 3.9 g/dl (3.4-5.0) 01/02/19 07:40 Active Medications Current Medications Acetaminophen (Tylenol -) 650 mg PO Q6H PRN PRN Reason: PAIN LEVEL 1-5 Last Admin: 01/03/19 05:07 Dose: 650 mg Cyclobenzaprine HCl (Flexeril -) 10 mg PO HS [facility] Last Admin: 01/04/19 23:05 Dose: 10 mg Diazepam (Valium -) 10 mg PO HS PRN PRN Reason: ANXIETY Stop: 01/07/19 21:59 Last Admin: 01/04/19 23:04 Dose: 10 mg Docusate Sodium (Colace -) 100 mg PO Q12H PRN PRN Reason: CONSTIPATION Last Admin: 01/04/19 15:39 Dose: 100 mg Fenofibric Acid (Trilipix -) 135 mg PO DAILY [facility] Last Admin: 01/05/19 10:51 Dose: 135 mg Gabapentin (Neurontin -) 800 mg PO TID [facility] Last Admin: 01/05/19 05:35 Dose: 800 mg Piperacillin Sod/Tazobactam (Sod 3.375 gm/ Dextrose) 50 mls @ 100 mls/hr IVPB Q8H-IV [facility]; Protocol Last Admin: 01/05/19 10:48 Dose: 100 mls/hr Liraglutide (Victoza -) 1.2 mg SQ HS [facility] Last Admin: 01/04/19 22:11 Dose: 1.2 mg Non-Formulary Medication (Cyclosporine [Restasis]) 1 each OP PRN PRN PRN Reason: DRY EYES Non-Formulary Medication (Patient's Own Med) 1 each PO DAILY [facility] Non-Formulary Medication (Patient's Own Med) 1 each PO DAILY [facility] Ondansetron HCl (Zofran Injection) 4 mg IVPUSH Q6H PRN PRN Reason: NAUSEA AND/OR VOMITING Oxycodone HCl (Roxicodone -) 15 mg PO Q4H PRN PRN Reason: PAIN LEVEL 6-10 Last Admin: 01/05/19 08:16 Dose: 15 mg Pioglitazone HCl (Actos -) 30 mg PO DAILY@0700 [facility] Last Admin: 01/05/19 06:39 Dose: 30 mg Rosuvastatin Calcium (Crestor -) 20 mg PO HS [facility] Last Admin: 01/04/19 22:09 Dose: 20 mg Senna (Senna -) 2 tab PO HS PRN PRN Reason: CONSTIPATION Last Admin: 01/04/19 23:05 Dose: 2 tab Home Medications Medication Instructions Recorded Acetaminophen/Caffeine/Butalb 1 tablet PO PRN PRN 11/26/18 [Fioricet -] Carisoprodol [Soma] 350 mg PO PRN PRN 11/26/18 Cyclosporine [Restasis] 1 each OP PRN PRN 11/26/18 Empagliflozin [Jardiance] 10 mg PO DAILY 11/26/18 Fenofibrate Nanocrystallized 145 mg PO DAILY 11/26/18 [Fenofibrate] Gabapentin 800 mg PO TID 11/26/18 Lansoprazole [Prevacid] 15 mg PO DAILY 11/26/18 Liraglutide [Victoza -] 1.2 mg SQ DAILY@0700 11/26/18 Oxycodone HCl/Acetaminophen 1 each PO Q6H PRN 11/26/18 [Percocet 10-325 mg Tablet] Pioglitazone HCl [Actos] 30 mg PO DAILY 11/26/18 Rosuvastatin [Crestor -] 20 mg PO DAILY 11/26/18 Cyclobenzaprine HCl [Flexeril -] 10 mg PO HS #28 tablet 11/27/18 Diazepam 1 tablet PO QID 01/01/19 Zolpidem Tartrate [Ambien] 20 mg PO HS 01/01/19 Microbiology 01/02/19 18:00 Wound Gram Stain - Final 01/02/19 18:00 Wound Wound Culture - Preliminary No growth. 01/02/19 18:00 Wound Gram Stain - Final 01/02/19 18:00 Wound Wound Culture - Preliminary 01/02/19 18:00 Tissue-Other Gram Stain - Final 01/02/19 18:00 Tissue-Other Tissue Culture - Preliminary Lactose Fermenting Neg Bacilli 01/02/19 18:00 Tissue-Other Anaerobic Culture - Final NO ANAEROBES WERE ISOLATED 12/31/18 12:48 Wound Gram Stain - Final 12/31/18 12:48 Wound Wound Culture - Final Enterobacter Cloacae 12/31/18 12:48 Wound AFB Smear Concentration - Final 12/31/18 12:48 Wound Mycobacterial Culture - Preliminary 12/31/18 12:48 Wound Gram Stain - Final 12/31/18 12:48 Wound Wound Culture - Final Enterobacter Cloacae Staphylococcus Coagulase Neg 12/31/18 12:48 Wound Gram Stain - Final 12/31/18 12:48 Wound Wound Culture - Final Enterobacter Cloacae 12/31/18 12:48 Wound ALLAN Preparation - Preliminary 12/31/18 12:48 Wound Fungal Culture - Preliminary ASSESSMENT/PLAN: 68 y/o M, pmh of spondylolysis, DMII, HLD, and HTN c/o neck pain. Pt is s/p cervical spine C3-C7 posterior fusion on 11/26/18, presents with surgical wound dehiscence #Surgical wound dehiscence s/p I&D posterior cervical spine cont Zosyn Awaiting results of wound Cx- identification of organism to choose appropriate abx Dr. Victoria to inspect the surgical scar on Monday Oxycodone 15 mg PO Q4H PRN Valium 10mg Flexeril #JAMA Now resolved monitor renal function #DM Resumed Victoza and Actose- Medications verified with patient. #Constipation colace and senna #Spondylolysis Chronic Cont fibrates #DVT ppx SCD #FEN Regular diet Monitor Electrolytes Dispo: monitor, speak with surgery about plan Visit type - Emergency Visit Emergency Visit: Yes ED Registration Date: 12/30/18 Care time: The patient presented to the Emergency Department on the above date and was hospitalized for further evaluation of their emergent condition. - New Patient This patient is new to me today: Yes Date on this admission: 01/05/19 - Critical Care Critical Care patient: No - Discharge Referral Referred to [facility] Med [facility] No ATTENDING PHYSICIAN STATEMENT I saw and evaluated the patient. I reviewed the resident's note and discussed the case with the resident. I agree with the resident's findings and plan as documented. SUBJECTIVE: OBJECTIVE: ASSESSMENT AND PLAN:
--- NOTE | 2019-01-05 15:08 | PN ---
Teaching Attending Note Name of Resident: Briseida Loving ATTENDING PHYSICIAN STATEMENT I saw and evaluated the patient. I reviewed the resident's note and discussed the case with the resident. I agree with the resident's findings and plan as documented. SUBJECTIVE: No fever or chills . minimal pain in neck . No N/V. no diarrhea . OBJECTIVE: NAD CV: RRR Lungs: CTAB Ext: No edema Lungs: CTAB posterior neck with a small clean gauze. No surrounding erythema Neuro: strength 5/5 in upper and lower extremities proximally and distally. reflexes 2+ biceps and knee jerk b/l. Nl sensation to light touch . ASSESSMENT AND PLAN: Pleasant 68 y/o man with h/o HTN, DM , HTN, HL, s/p C3-7 fusion on 11/26/18 , who presented to Hospital for wound dehiscence 1- Cervical Wound dehiscence 2- Cervical wound infection 3- S/p I&D and debridment on 12/31 4- S/p I&D on 01/02 5- H/o DM 6- H/o HTN Plan: - Cont Abx for now - wound cx noted today . follow final - Wound inspection on Monday - cont oxy - advised to wear collar when out of bed - Cont home diazepam - Cont home fibrate - cont statin - cont neurontin - SCds - cont Victoza and Actos - Monitor
[2019-01-05] MEDS: DOCUSATE SODIUM 100 MG CAPSULE (FP) PO PRN (17:10)
[2019-01-05] MEDS: ROSUVASTATIN CA 20 MG TABLET (FP) PO SCH (21:14)
[2019-01-05] MEDS: LIRAGLUTIDE 0.6 MG/0.1 ML PEN.INJCTR SQ SCH (22:35)
[2019-01-05] MEDS: diazePAM 5 MG TABLET PO PRN (23:30)
[2019-01-05] MEDS: CYCLOBENZAPRINE HCL 10 MG TABLET (FP) PO SCH (23:30)
[2019-01-05] MEDS: SENNOSIDES 8.6MG TABLET (FP) PO PRN (23:30)
[2019-01-06] MEDS ORDERED: DEXTROSE 5%-WATER - 50 ML IVPB ONE ×3 (02:12→17:18)
[2019-01-06] MEDS ORDERED: PIPERACILLIN/TAZOBACTAM 3.375 GM VIAL IVPB ONE ×3 (02:12→17:18)
[2019-01-06] MEDS: PIPERACILLIN/TAZOB 3.375 GM 3.375 GM in DEXTROSE 5%-WATER - 50 ML IVPB SCH ×3 (02:50→17:24)
[2019-01-06] MEDS ORDERED: PT OWN MED DRAWER 7, Y5N ONE (05:24)
[2019-01-06] MEDS: GABAPENTIN 400 MG CAPSULE (FP) PO SCH ×3 (06:45→21:46)
[2019-01-06] MEDS: PIOGLITAZONE HCL 30 MG TABLET (FP) PO SCH (06:45)
[2019-01-06] MEDS: oxyCODONE HCL 5 MG TABLET PO PRN ×4 (07:49→21:52)
[2019-01-06] MEDS: FENOFIBRIC ACID 135 MG CAP PO SCH (10:31)
--- NOTE | 2019-01-06 11:06 | PN ---
Progress Note, Physician History of Present Illness: stable no new issues - Current Medication List Current Medications: Active Medications Acetaminophen (Tylenol -) 650 mg PO Q6H PRN PRN Reason: PAIN LEVEL 1-5 Last Admin: 01/03/19 05:07 Dose: 650 mg Cyclobenzaprine HCl (Flexeril -) 10 mg PO HS [facility] Last Admin: 01/05/19 23:30 Dose: 10 mg Diazepam (Valium -) 10 mg PO HS PRN PRN Reason: ANXIETY Stop: 01/07/19 21:59 Last Admin: 01/05/19 23:30 Dose: 10 mg Docusate Sodium (Colace -) 100 mg PO Q12H PRN PRN Reason: CONSTIPATION Last Admin: 01/05/19 17:10 Dose: 100 mg Fenofibric Acid (Trilipix -) 135 mg PO DAILY [facility] Last Admin: 01/06/19 10:31 Dose: 135 mg Gabapentin (Neurontin -) 800 mg PO TID [facility] Last Admin: 01/06/19 06:45 Dose: 800 mg Piperacillin Sod/Tazobactam (Sod 3.375 gm/ Dextrose) 50 mls @ 100 mls/hr IVPB Q8H-IV [facility]; Protocol Last Admin: 01/06/19 10:31 Dose: 100 mls/hr Liraglutide (Victoza -) 1.2 mg SQ HS [facility] Last Admin: 01/05/19 22:35 Dose: 1.2 mg Non-Formulary Medication (Cyclosporine [Restasis]) 1 each OP PRN PRN PRN Reason: DRY EYES Non-Formulary Medication (Patient's Own Med) 1 each PO DAILY [facility] Non-Formulary Medication (Patient's Own Med) 1 each PO DAILY [facility] Ondansetron HCl (Zofran Injection) 4 mg IVPUSH Q6H PRN PRN Reason: NAUSEA AND/OR VOMITING Oxycodone HCl (Roxicodone -) 15 mg PO Q4H PRN PRN Reason: PAIN LEVEL 1-5 Last Admin: 01/06/19 07:49 Dose: 15 mg Pioglitazone HCl (Actos -) 30 mg PO DAILY@0700 [facility] Last Admin: 01/06/19 06:45 Dose: 30 mg Rosuvastatin Calcium (Crestor -) 20 mg PO HS [facility] Last Admin: 01/05/19 21:14 Dose: 20 mg Senna (Senna -) 2 tab PO HS PRN PRN Reason: CONSTIPATION Last Admin: 01/05/19 23:30 Dose: 2 tab - Objective Vital Signs: Vital Signs Temperature 97.3 F L 01/06/19 06:16 Pulse Rate 87 01/06/19 06:16 Respiratory Rate 20 01/05/19 22:00 Blood Pressure 114/72 01/06/19 06:16 O2 Sat by Pulse Oximetry (%) 98 01/05/19 21:00 Constitutional: Yes: No Distress, Calm Cardiovascular: Yes: S1, S2 Respiratory: Yes: Regular, CTA Bilaterally Gastrointestinal: Yes: Normal Bowel Sounds, Soft Musculoskeletal: Yes: WNL Extremities: Yes: Other Neurological: Yes: Alert, Oriented Psychiatric: Yes: Alert, Oriented Labs: CBC, BMP 01/05/19 07:55 01/05/19 07:55 INR, PTT INR 1.08 (0.83-1.09) 12/30/18 18:44 Assessment/Plan 68 y/o man with h/o HTN, DM , HTN, HL, s/p C3-7 fusion on 11/26/18 , who presented to Hospital for wound dehiscence cervical wound dehiscence wound infection dm htn smoker plan await for identification of the organism wound care continue abx rest as per the team
[2019-01-06] MEDS: DOCUSATE SODIUM 100 MG CAPSULE (FP) PO PRN (12:04)
--- NOTE | 2019-01-06 15:31 | PN ---
Progress Note (short form) - Note Progress Note: Subjective: Pain in neck when he moves his. No fever or chills. No weakness, or tingling. no numbness. Objective: Vital Signs: Last Vital Signs Temp Pulse Resp BP Pulse Ox 97.3 F L 87 20 114/72 98 01/06/19 06:16 01/06/19 06:16 01/05/19 22:00 01/06/19 06:16 01/05/19 21:00 Laboratory Results - last 24 hr 01/05/19 01/06/19 21:10 06:45 POC Glucometer 149 99 Physical Exam: NAD. CV: RRR. Ext: No edema. Lungs: CTAB . posterior neck with a small clean gauze. No surrounding erythema Neuro: strength 5/5 in upper and lower extremities proximally and distally. reflexes 2+ biceps and knee jerk b/l. Nl sensation to light touch. ASSESSMENT AND PLAN: Pleasant 68 y/o man with h/o HTN, DM , HTN, HL, s/p C3-7 fusion on 11/26/18 , who presented to Hospital for wound dehiscence 1- Cervical Wound dehiscence 2- Cervical wound infection 3- S/p I&D and debridment on 12/31 4- S/p I&D on 01/02 5- H/o DM 6- H/o HTN Plan: - Cont Abx for now - final wound cx noted - Wound inspection on Monday - will d/w ID and nuero sx tomorrow about the final plan about Abx - cont oxy - Cont home diazepam - Cont home fibrate - cont statin - cont neurontin - SCds - cont Victoza and Actos ambulatory Visit type - Emergency Visit Emergency Visit: Yes ED Registration Date: 12/30/18 Care time: The patient presented to the Emergency Department on the above date and was hospitalized for further evaluation of their emergent condition. - New Patient This patient is new to me today: No - Critical Care Critical Care patient: No
[2019-01-06] MEDS: ROSUVASTATIN CA 20 MG TABLET (FP) PO SCH (21:46)
[2019-01-06] MEDS: LIRAGLUTIDE 0.6 MG/0.1 ML PEN.INJCTR SQ SCH (21:47)
[2019-01-06] MEDS: SENNOSIDES 8.6MG TABLET (FP) PO PRN (21:54)
[2019-01-07] MEDS: diazePAM 5 MG TABLET PO PRN ×2 (00:10→21:30)
[2019-01-07] MEDS: CYCLOBENZAPRINE HCL 10 MG TABLET (FP) PO SCH (00:11)
[2019-01-07] MEDS ORDERED: PIPERACILLIN/TAZOBACTAM 3.375 GM VIAL IVPB ONE ×2 (02:32→09:27)
[2019-01-07] MEDS ORDERED: DEXTROSE 5%-WATER - 50 ML IVPB ONE ×2 (02:32→09:27)
[2019-01-07] MEDS: PIPERACILLIN/TAZOB 3.375 GM 3.375 GM in DEXTROSE 5%-WATER - 50 ML IVPB SCH ×2 (02:37→10:30)
[2019-01-07] MEDS: PIOGLITAZONE HCL 30 MG TABLET (FP) PO SCH (06:13)
[2019-01-07] MEDS: GABAPENTIN 400 MG CAPSULE (FP) PO SCH ×3 (06:13→22:19)
[2019-01-07] MEDS: oxyCODONE HCL 5 MG TABLET PO PRN ×4 (08:19→21:19)
[2019-01-07] MEDS: FENOFIBRIC ACID 135 MG CAP PO SCH (10:31)
--- NOTE | 2019-01-07 11:21 | PN ---
Progress Note, Physician History of Present Illness: stable doing well no issues - Current Medication List Current Medications: Active Medications Acetaminophen (Tylenol -) 650 mg PO Q6H PRN PRN Reason: PAIN LEVEL 1-5 Last Admin: 01/03/19 05:07 Dose: 650 mg Cyclobenzaprine HCl (Flexeril -) 10 mg PO HS [facility] Last Admin: 01/07/19 00:11 Dose: 10 mg Diazepam (Valium -) 10 mg PO HS PRN PRN Reason: ANXIETY Stop: 01/07/19 21:59 Last Admin: 01/07/19 00:10 Dose: 10 mg Docusate Sodium (Colace -) 100 mg PO Q12H PRN PRN Reason: CONSTIPATION Last Admin: 01/06/19 12:04 Dose: 100 mg Fenofibric Acid (Trilipix -) 135 mg PO DAILY [facility] Last Admin: 01/07/19 10:31 Dose: 135 mg Gabapentin (Neurontin -) 800 mg PO TID [facility] Last Admin: 01/07/19 06:13 Dose: 800 mg Piperacillin Sod/Tazobactam (Sod 3.375 gm/ Dextrose) 50 mls @ 100 mls/hr IVPB Q8H-IV [facility]; Protocol Last Admin: 01/07/19 10:30 Dose: 100 mls/hr Liraglutide (Victoza -) 1.2 mg SQ HS [facility] Last Admin: 01/06/19 21:47 Dose: 1.2 mg Non-Formulary Medication (Cyclosporine [Restasis]) 1 each OP PRN PRN PRN Reason: DRY EYES Non-Formulary Medication (Patient's Own Med) 1 each PO DAILY [facility] Non-Formulary Medication (Patient's Own Med) 1 each PO DAILY [facility] Ondansetron HCl (Zofran Injection) 4 mg IVPUSH Q6H PRN PRN Reason: NAUSEA AND/OR VOMITING Oxycodone HCl (Roxicodone -) 15 mg PO Q4H PRN PRN Reason: PAIN LEVEL 1-5 Last Admin: 01/07/19 08:19 Dose: 15 mg Pioglitazone HCl (Actos -) 30 mg PO DAILY@0700 [facility] Last Admin: 01/07/19 06:13 Dose: 30 mg Rosuvastatin Calcium (Crestor -) 20 mg PO HS [facility] Last Admin: 01/06/19 21:46 Dose: 20 mg Senna (Senna -) 2 tab PO HS PRN PRN Reason: CONSTIPATION Last Admin: 01/06/19 21:54 Dose: 2 tab - Objective Vital Signs: Vital Signs Temperature 98.4 F 01/07/19 06:15 Pulse Rate 64 01/07/19 06:15 Respiratory Rate 20 01/07/19 06:15 Blood Pressure 129/74 01/07/19 06:15 O2 Sat by Pulse Oximetry (%) 98 01/06/19 21:00 Constitutional: Yes: No Distress, Calm Cardiovascular: Yes: S1, S2 Respiratory: Yes: Regular, CTA Bilaterally Gastrointestinal: Yes: Normal Bowel Sounds, Soft Musculoskeletal: Yes: WNL Extremities: Yes: WNL Wound/Incision: Yes: Dressing Dry and Intact Neurological: Yes: Alert, Oriented Psychiatric: Yes: Alert, Oriented Labs: CBC, BMP 01/05/19 07:55 01/05/19 07:55 INR, PTT INR 1.08 (0.83-1.09) 12/30/18 18:44 Assessment/Plan 68 y/o man with h/o HTN, DM , HTN, HL, s/p C3-7 fusion on 11/26/18 , who presented to Hospital for wound dehiscence cervical wound dehiscence wound infection dm htn smoker plan cx result noted changed to ceftriaxone will need it for another 5 weeks crp and esr
[2019-01-07] MEDS ORDERED: DEXTROSE 5%-WATER 100 ML IVPB ONE (13:08)
[2019-01-07] MEDS: DOCUSATE SODIUM 100 MG CAPSULE (FP) PO PRN (13:11)
[2019-01-07] MEDS: CEFTRIAXONE 2 GM in DEXTROSE 5%-WATER 100 ML IVPB SCH (13:11)
--- NOTE | 2019-01-07 14:28 | PN ---
Physical Exam: SUBJECTIVE: Patient seen and examined at bedside. No acute events overnight. Pt appears much more improved, no c/o or issues. Pt is walking around and cooperating with staff. Denies f/c/n/v/d/sob/chest pain. OBJECTIVE: Vital Signs Period Temp Pulse Resp BP Sys/Champion Pulse Ox Last 24 Hr 98.2 F-98.6 F 64-70 17-20 113-130/74-84 98-98 GENERAL: NAD, AOx, pt cooperative, pleasant and walking around HEAD: Normal with no signs of trauma. AT/AC EYES: EOMI, Sclera Clear, PERRLA NECK: Surgical dressing in posterior neck- no drainage, no purulent discharge, dressing intact LUNGS: CTA b/l HEART: RRR S1S2 ABDOMEN: Soft, NDNT NEUROLOGICAL: Cranial nerves II through XII grossly intact. Normal speech. PSYCH: Normal mood, normal affect. SKIN: Warm, dry, normal turgor, Laboratory Results - last 24 hr CBC,CMP WBC 7.0 K/mm3 (4.0-10.0) 01/05/19 07:55 RBC 4.76 M/mm3 (4.00-5.60) 01/05/19 07:55 Hgb 14.0 GM/dL (11.7-16.9) 01/05/19 07:55 Hct 41.8 % (35.4-49) 01/05/19 07:55 MCV 87.7 fl (80-96) 01/05/19 07:55 MCH 29.5 pg (25.7-33.7) 01/05/19 07:55 MCHC 33.6 g/dl (32.0-35.9) 01/05/19 07:55 RDW 13.7 % (11.9-15.9) 01/05/19 07:55 Plt Count 154 K/MM3 (134-434) 01/05/19 07:55 MPV 10.4 fl (7.5-11.1) 01/05/19 07:55 Absolute Neuts (auto) 4.3 K/mm3 (1.5-8.0) 01/03/19 08:30 Neutrophils % 66.3 % (42.8-82.8) 01/03/19 08:30 Lymphocytes % 20.6 % (8-40) 01/03/19 08:30 Monocytes % 8.8 % (3.8-10.2) 01/03/19 08:30 Eosinophils % 3.2 % (0-4.5) 01/03/19 08:30 Basophils % 1.1 % (0-2.0) 01/03/19 08:30 Nucleated RBC % 0 % (0-0) 01/03/19 08:30 Sodium 137 mmol/L (136-145) 01/05/19 07:55 Potassium 4.6 mmol/L (3.5-5.1) 01/05/19 07:55 Chloride 104 mmol/L (98-107) 01/05/19 07:55 Carbon Dioxide 29 mmol/L (21-32) 01/05/19 07:55 Anion Gap 5 MMOL/L (8-16) L 01/05/19 07:55 BUN 15.8 mg/dL (7-18) 01/05/19 07:55 Creatinine 1.2 mg/dL (0.55-1.3) 01/05/19 07:55 Est GFR (CKD-EPI)AfAm 71.08 01/05/19 07:55 Est GFR (CKD-EPI)NonAf 61.33 01/05/19 07:55 POC Glucometer 144 UNITS (80-120) 01/07/19 11:18 Random Glucose 114 mg/dL (74-106) H 01/05/19 07:55 Calcium 9.3 mg/dL (8.5-10.1) 01/05/19 07:55 Phosphorus 3.2 mg/dL (2.5-4.9) 12/31/18 07:05 Magnesium 1.9 mg/dL (1.8-2.4) 12/31/18 07:05 Total Bilirubin 0.4 mg/dL (0.2-1) 01/02/19 07:40 AST 16 U/L (15-37) 01/02/19 07:40 ALT 14 U/L (13-61) 01/02/19 07:40 Alkaline Phosphatase 48 U/L (45-117) 01/02/19 07:40 C-Reactive Protein < 0.3 MG/DL (0.00-0.3) 01/07/19 12:21 Total Protein 7.1 g/dl (6.4-8.2) 01/02/19 07:40 Albumin 3.9 g/dl (3.4-5.0) 01/02/19 07:40 Active Medications Current Medications Acetaminophen (Tylenol -) 650 mg PO Q6H PRN PRN Reason: PAIN LEVEL 1-5 Last Admin: 01/03/19 05:07 Dose: 650 mg Cyclobenzaprine HCl (Flexeril -) 10 mg PO HS [facility] Last Admin: 01/07/19 00:11 Dose: 10 mg Diazepam (Valium -) 10 mg PO HS PRN PRN Reason: ANXIETY Stop: 01/07/19 21:59 Last Admin: 01/07/19 00:10 Dose: 10 mg Docusate Sodium (Colace -) 100 mg PO Q12H PRN PRN Reason: CONSTIPATION Last Admin: 01/07/19 13:11 Dose: 100 mg Famotidine (Pepcid -) 20 mg PO DAILY PRN PRN Reason: INDIGESTION Fenofibric Acid (Trilipix -) 135 mg PO DAILY [facility] Last Admin: 01/07/19 10:31 Dose: 135 mg Gabapentin (Neurontin -) 800 mg PO TID [facility] Last Admin: 01/07/19 06:13 Dose: 800 mg Ceftriaxone Sodium 2 gm/ (Dextrose) 100 mls @ 100 mls/hr IVPB DAILY [facility]; Protocol Last Admin: 01/07/19 13:11 Dose: 100 mls/hr Liraglutide (Victoza -) 1.2 mg SQ HS [facility] Last Admin: 01/06/19 21:47 Dose: 1.2 mg Non-Formulary Medication (Cyclosporine [Restasis]) 1 each OP PRN PRN PRN Reason: DRY EYES Non-Formulary Medication (Patient's Own Med) 1 each PO DAILY [facility] Ondansetron HCl (Zofran Injection) 4 mg IVPUSH Q6H PRN PRN Reason: NAUSEA AND/OR VOMITING Oxycodone HCl (Roxicodone -) 15 mg PO Q4H PRN PRN Reason: PAIN LEVEL 1-5 Last Admin: 01/07/19 13:10 Dose: 15 mg Pioglitazone HCl (Actos -) 30 mg PO DAILY@0700 [facility] Last Admin: 01/07/19 06:13 Dose: 30 mg Polyethylene Glycol (Miralax (For Daily Use) -) 17 gm PO BID [facility] Rosuvastatin Calcium (Crestor -) 20 mg PO HS [facility] Last Admin: 01/06/19 21:46 Dose: 20 mg Senna (Senna -) 2 tab PO HS PRN PRN Reason: CONSTIPATION Last Admin: 01/06/19 21:54 Dose: 2 tab Home Medications Medication Instructions Recorded Acetaminophen/Caffeine/Butalb 1 tablet PO PRN PRN 11/26/18 [Fioricet -] Carisoprodol [Soma] 350 mg PO PRN PRN 11/26/18 Cyclosporine [Restasis] 1 each OP PRN PRN 11/26/18 Empagliflozin [Jardiance] 10 mg PO DAILY 11/26/18 Fenofibrate Nanocrystallized 145 mg PO DAILY 11/26/18 [Fenofibrate] Gabapentin 800 mg PO TID 11/26/18 Lansoprazole [Prevacid] 15 mg PO DAILY 11/26/18 Liraglutide [Victoza -] 1.2 mg SQ DAILY@0700 11/26/18 Oxycodone HCl/Acetaminophen 1 each PO Q6H PRN 11/26/18 [Percocet 10-325 mg Tablet] Pioglitazone HCl [Actos] 30 mg PO DAILY 11/26/18 Rosuvastatin [Crestor -] 20 mg PO DAILY 11/26/18 Cyclobenzaprine HCl [Flexeril -] 10 mg PO HS #28 tablet 11/27/18 Diazepam 1 tablet PO QID 01/01/19 Zolpidem Tartrate [Ambien] 20 mg PO HS 01/01/19 Microbiology 01/02/19 18:00 Wound Gram Stain - Final 01/02/19 18:00 Wound Wound Culture - Final Enterobacter Cloacae 01/02/19 18:00 Tissue-Other Gram Stain - Final 01/02/19 18:00 Tissue-Other Tissue Culture - Final Enterobacter Cloacae 01/02/19 18:00 Tissue-Other Anaerobic Culture - Final NO ANAEROBES WERE ISOLATED 01/02/19 18:00 Wound Gram Stain - Final 01/02/19 18:00 Wound Wound Culture - Final NO AEROBIC OR ANAEROBIC GROWTH OBTAINED. 12/31/18 12:48 Wound Gram Stain - Final 12/31/18 12:48 Wound Wound Culture - Final Enterobacter Cloacae 12/31/18 12:48 Wound AFB Smear Concentration - Final 12/31/18 12:48 Wound Mycobacterial Culture - Preliminary 12/31/18 12:48 Wound Gram Stain - Final 12/31/18 12:48 Wound Wound Culture - Final Enterobacter Cloacae Staphylococcus Coagulase Neg 12/31/18 12:48 Wound Gram Stain - Final 12/31/18 12:48 Wound Wound Culture - Final Enterobacter Cloacae 12/31/18 12:48 Wound ALLAN Preparation - Preliminary 12/31/18 12:48 Wound Fungal Culture - Preliminary ASSESSMENT/PLAN: 68 y/o M, pmh of spondylolysis, DMII, HLD, and HTN c/o neck pain. Pt is s/p cervical spine C3-C7 posterior fusion on 11/26/18, presents with surgical wound dehiscence #Surgical wound dehiscence s/p I&D posterior cervical spine Started on ceftriaxone, will cont for 5 weeks Cx noted ESR ordered Dr. Victoria to inspect the surgical scar today and will make recommendation Oxycodone 15 mg PO Q4H PRN Valium 10mg Flexeril #DM Resumed Victoza and Actose- Medications verified with patient. #Constipation colace and senna #Spondylolysis Chronic Cont fibrates #DVT ppx SCD #FEN Regular diet Monitor Electrolytes Dispo: monitor, find out plan from Dr. Victoria and ID Visit type - Emergency Visit Emergency Visit: Yes ED Registration Date: 12/30/18 Care time: The patient presented to the Emergency Department on the above date and was hospitalized for further evaluation of their emergent condition. - New Patient This patient is new to me today: Yes Date on this admission: 01/07/19 - Critical Care Critical Care patient: No - Discharge Referral Referred to [facility] Med P.C.: No ATTENDING PHYSICIAN STATEMENT I saw and evaluated the patient. I reviewed the resident's note and discussed the case with the resident. I agree with the resident's findings and plan as documented. SUBJECTIVE: OBJECTIVE: ASSESSMENT AND PLAN:
[2019-01-07] MEDS: FAMOTIDINE 20 MG TABLET PO PRN (16:14)
--- NOTE | 2019-01-07 18:01 | PN ---
Teaching Attending Note Name of Resident: Vikash Dan ATTENDING PHYSICIAN STATEMENT I saw and evaluated the patient. I reviewed the resident's note and discussed the case with the resident. I agree with the resident's findings and plan as documented. SUBJECTIVE: no fever or chills. No FLORES . minimal pain in neck . No numbness or tingling or weakness OBJECTIVE: NAD. CV: RRR. Ext: No edema. Lungs: CTAB . posterior neck with a small clean gauze. minimal irritation surrounding the tape Neuro: strength 5/5 in upper and lower extremities proximally and distally. reflexes 2+ biceps and knee jerk b/l. Nl sensation to light touch. ASSESSMENT AND PLAN: Pleasant 68 y/o man with h/o HTN, DM , HTN, HL, s/p C3-7 fusion on 11/26/18 , who presented to Hospital for wound dehiscence 1- Cervical Wound dehiscence 2- Cervical wound infection 3- S/p I&D and debridment on 12/31 4- S/p I&D on 01/02 5- H/o DM 6- H/o HTN Plan: - Cont Abx : switch to ceftriaxone daily for 5 more weeks. d/w ID - cont oxy - Cont home diazepam - Cont home fibrate - cont statin - cont neurontin - SCds - cont Victoza and Actos - f/u wit neuro sx after dc ambulatory
[2019-01-07] MEDS: SENNOSIDES 8.6MG TABLET (FP) PO PRN (22:19)
[2019-01-07] MEDS: LIRAGLUTIDE 0.6 MG/0.1 ML PEN.INJCTR SQ SCH (22:19)
[2019-01-07] MEDS: ROSUVASTATIN CA 20 MG TABLET (FP) PO SCH (22:19)
[2019-01-07] MEDS: POLYETHYLENE GLYCOL 3350 119 GM BTL PO SCH (22:21)
[2019-01-08] MEDS: CYCLOBENZAPRINE HCL 10 MG TABLET (FP) PO SCH ×2 (00:17→23:27)
[2019-01-08] MEDS: PIOGLITAZONE HCL 30 MG TABLET (FP) PO SCH (06:24)
[2019-01-08] MEDS: GABAPENTIN 400 MG CAPSULE (FP) PO SCH ×3 (06:24→21:30)
[2019-01-08 08:36] LABS: HEMATOCRIT 38.3 % (35.4-49); MCH 29.5 pg (25.7-33.7); MCHC 33.9 g/dl (32.0-35.9); MEAN CELL VOLUME 87.1 fl (80-96); MEAN PLT VOLUME 10.5 fl (7.5-11.1); PLATELET COUNT 156 K/MM3 (134-434); RDW 14.2 % (11.9-15.9); WHITE BLOOD COUNT 6.3 K/mm3 (4.0-10.0)
[2019-01-08] MEDS: oxyCODONE HCL 5 MG TABLET PO PRN ×4 (08:47→23:29)
[2019-01-08] MEDS ORDERED: DEXTROSE 5%-WATER 100 ML IVPB ONE (09:29)
[2019-01-08] MEDS ORDERED: PT OWN MED DRAWER 7, Y5N ONE (09:29)
[2019-01-08] MEDS: FAMOTIDINE 20 MG TABLET PO PRN (09:33)
[2019-01-08] MEDS: CEFTRIAXONE 2 GM in DEXTROSE 5%-WATER 100 ML IVPB SCH (09:34)
[2019-01-08] MEDS: FENOFIBRIC ACID 135 MG CAP PO SCH (09:34)
[2019-01-08] MEDS: POLYETHYLENE GLYCOL 3350 119 GM BTL PO SCH ×2 (10:17→21:30)
--- NOTE | 2019-01-08 11:34 | PN ---
Progress Note, Physician History of Present Illness: stable no new issues - Current Medication List Current Medications: Active Medications Acetaminophen (Tylenol -) 650 mg PO Q6H PRN PRN Reason: PAIN LEVEL 1-5 Last Admin: 01/03/19 05:07 Dose: 650 mg Cyclobenzaprine HCl (Flexeril -) 10 mg PO HS [facility] Last Admin: 01/08/19 00:17 Dose: 10 mg Docusate Sodium (Colace -) 100 mg PO Q12H PRN PRN Reason: CONSTIPATION Last Admin: 01/07/19 13:11 Dose: 100 mg Famotidine (Pepcid -) 20 mg PO DAILY PRN PRN Reason: INDIGESTION Last Admin: 01/08/19 09:33 Dose: 20 mg Fenofibric Acid (Trilipix -) 135 mg PO DAILY [facility] Last Admin: 01/08/19 09:34 Dose: 135 mg Gabapentin (Neurontin -) 800 mg PO TID [facility] Last Admin: 01/08/19 06:24 Dose: 800 mg Ceftriaxone Sodium 2 gm/ (Dextrose) 100 mls @ 100 mls/hr IVPB DAILY [facility]; Protocol Last Admin: 01/08/19 09:34 Dose: Not Given Liraglutide (Victoza -) 1.2 mg SQ HS [facility] Last Admin: 01/07/19 22:19 Dose: 1.2 mg Ondansetron HCl (Zofran Injection) 4 mg IVPUSH Q6H PRN PRN Reason: NAUSEA AND/OR VOMITING Oxycodone HCl (Roxicodone -) 15 mg PO Q4H PRN PRN Reason: PAIN LEVEL 1-5 Last Admin: 01/08/19 08:47 Dose: 15 mg Pioglitazone HCl (Actos -) 30 mg PO DAILY@0700 [facility] Last Admin: 01/08/19 06:24 Dose: 30 mg Polyethylene Glycol (Miralax (For Daily Use) -) 17 gm PO BID [facility] Last Admin: 01/08/19 10:17 Dose: Not Given Rosuvastatin Calcium (Crestor -) 20 mg PO HS [facility] Last Admin: 01/07/19 22:19 Dose: 20 mg Senna (Senna -) 2 tab PO HS PRN PRN Reason: CONSTIPATION Last Admin: 01/07/19 22:19 Dose: 2 tab - Objective Vital Signs: Vital Signs Temperature 98.0 F 01/08/19 09:00 Pulse Rate 77 01/08/19 09:00 Respiratory Rate 18 01/08/19 09:00 Blood Pressure 139/75 01/08/19 09:00 O2 Sat by Pulse Oximetry (%) 98 01/07/19 08:20 Constitutional: Yes: No Distress, Calm Cardiovascular: Yes: S1, S2 Respiratory: Yes: Regular, CTA Bilaterally Gastrointestinal: Yes: Normal Bowel Sounds, Soft Musculoskeletal: Yes: WNL Extremities: Yes: Other Wound/Incision: Yes: Dressing Dry and Intact Psychiatric: Yes: Alert, Oriented Labs: CBC, BMP 01/08/19 06:37 01/05/19 07:55 INR, PTT INR 1.08 (0.83-1.09) 12/30/18 18:44 Assessment/Plan 68 y/o man with h/o HTN, DM , HTN, HL, s/p C3-7 fusion on 11/26/18 , who presented to Hospital for wound dehiscence cervical wound dehiscence wound infection dm htn smoker plan cx result noted changed to ceftriaxone will need it for another 5 weeks crp and esr
--- NOTE | 2019-01-08 15:01 | PN ---
Teaching Attending Note Name of Resident: Briseida Loving ATTENDING PHYSICIAN STATEMENT I saw and evaluated the patient. I reviewed the resident's note and discussed the case with the resident. I agree with the resident's findings and plan as documented. SUBJECTIVE: No fever or chills. No FLORES . neck pain is acceptable. No diarrhea . OBJECTIVE: Neuro: strength 5/5 in upper and lower extremities proximally and distally. reflexes 2+ biceps and knee jerk b/l. Nl sensation to light touch. ASSESSMENT AND PLAN: Pleasant 68 y/o man with h/o HTN, DM , HTN, HL, s/p C3-7 fusion on 11/26/18 , who presented to Hospital for wound dehiscence 1- Cervical Wound dehiscence 2- Cervical wound infection 3- S/p I&D and debridment on 12/31 4- S/p I&D on 01/02 5- H/o DM 6- H/o HTN Plan: - Cont Abx : ceftriaxone daily for 5 more weeks. d/w PILI and Dr. Mullins again today - Spoke to madhu Jung, who will see the patient in 1-2 hours. Recs regarding wound : no showeing, keep wound dry, cover with gauze and tigaderm daily and keep dry. no bending or twisting x 6 months. sutures to be removed by him in office in 1-2 weeks . he is to follow in office in 2-3 days . - cont home percocet at dc - Cont home diazepam - Cont home fibrate - cont statin - cont neurontin - SCds - cont Victoza and Actos Ambulatory Home Abx are arranged. PICC line is being placed today. [employer] company declined him. d/w BORIS who is trying other [facility] companies. if he does not get accepted, then will suggest SNF to complete his Abx .
--- NOTE | 2019-01-08 15:32 | DS ---
Physical Exam: SUBJECTIVE: Patient seen and examined at bedside. No acute events overnight. Pt appears much more improved, no c/o or issues. Pt is walking around and cooperating with staff. Pt states he wants a full detailed instruction upon his discharge. Denies f/c/n/v/d/sob/chest pain. OBJECTIVE: Vital Signs Period Temp Pulse Resp BP Sys/Champion Pulse Ox Last 24 Hr 97.3 F-98.0 F 58-77 18-18 107-139/64-75 98 PHYSICAL EXAM GENERAL: NAD, AOx, pt cooperative, pleasant and walking around HEAD: Normal with no signs of trauma. AT/AC EYES: EOMI, Sclera Clear, PERRLA NECK: Surgical dressing in posterior neck- no drainage, no purulent discharge, dressing intact LUNGS: CTA b/l HEART: RRR S1S2 ABDOMEN: Soft, NDNT NEUROLOGICAL: Cranial nerves II through XII grossly intact. Normal speech. PSYCH: Normal mood, normal affect. SKIN: Warm, dry, normal turgor, LABS Laboratory Results - last 24 hr CBC,CMP WBC 6.3 K/mm3 (4.0-10.0) 01/08/19 06:37 RBC 4.40 M/mm3 (4.00-5.60) 01/08/19 06:37 Hgb 13.0 GM/dL (11.7-16.9) 01/08/19 06:37 Hct 38.3 % (35.4-49) 01/08/19 06:37 MCV 87.1 fl (80-96) 01/08/19 06:37 MCH 29.5 pg (25.7-33.7) 01/08/19 06:37 MCHC 33.9 g/dl (32.0-35.9) 01/08/19 06:37 RDW 14.2 % (11.9-15.9) 01/08/19 06:37 Plt Count 156 K/MM3 (134-434) 01/08/19 06:37 MPV 10.5 fl (7.5-11.1) 01/08/19 06:37 Absolute Neuts (auto) 4.3 K/mm3 (1.5-8.0) 01/03/19 08:30 Neutrophils % 66.3 % (42.8-82.8) 01/03/19 08:30 Lymphocytes % 20.6 % (8-40) 01/03/19 08:30 Monocytes % 8.8 % (3.8-10.2) 01/03/19 08:30 Eosinophils % 3.2 % (0-4.5) 01/03/19 08:30 Basophils % 1.1 % (0-2.0) 01/03/19 08:30 Nucleated RBC % 0 % (0-0) 01/03/19 08:30 ESR 18 mm/hr (0-20) 01/07/19 12:21 Sodium 137 mmol/L (136-145) 01/05/19 07:55 Potassium 4.6 mmol/L (3.5-5.1) 01/05/19 07:55 Chloride 104 mmol/L (98-107) 01/05/19 07:55 Carbon Dioxide 29 mmol/L (21-32) 01/05/19 07:55 Anion Gap 5 MMOL/L (8-16) L 01/05/19 07:55 BUN 15.8 mg/dL (7-18) 01/05/19 07:55 Creatinine 1.2 mg/dL (0.55-1.3) 01/05/19 07:55 Est GFR (CKD-EPI)AfAm 71.08 01/05/19 07:55 Est GFR (CKD-EPI)NonAf 61.33 01/05/19 07:55 POC Glucometer 113 UNITS (80-120) 01/08/19 11:45 Random Glucose 114 mg/dL (74-106) H 01/05/19 07:55 Calcium 9.3 mg/dL (8.5-10.1) 01/05/19 07:55 Phosphorus 3.2 mg/dL (2.5-4.9) 12/31/18 07:05 Magnesium 1.9 mg/dL (1.8-2.4) 12/31/18 07:05 Total Bilirubin 0.4 mg/dL (0.2-1) 01/02/19 07:40 AST 16 U/L (15-37) 01/02/19 07:40 ALT 14 U/L (13-61) 01/02/19 07:40 Alkaline Phosphatase 48 U/L (45-117) 01/02/19 07:40 C-Reactive Protein < 0.3 MG/DL (0.00-0.3) 01/07/19 12:21 Total Protein 7.1 g/dl (6.4-8.2) 01/02/19 07:40 Albumin 3.9 g/dl (3.4-5.0) 01/02/19 07:40 Current Medications Acetaminophen (Tylenol -) 650 mg PO Q6H PRN PRN Reason: PAIN LEVEL 1-5 Last Admin: 01/03/19 05:07 Dose: 650 mg Cyclobenzaprine HCl (Flexeril -) 10 mg PO HS [facility] Last Admin: 01/08/19 00:17 Dose: 10 mg Docusate Sodium (Colace -) 100 mg PO Q12H PRN PRN Reason: CONSTIPATION Last Admin: 01/07/19 13:11 Dose: 100 mg Famotidine (Pepcid -) 20 mg PO DAILY PRN PRN Reason: INDIGESTION Last Admin: 01/08/19 09:33 Dose: 20 mg Fenofibric Acid (Trilipix -) 135 mg PO DAILY [facility] Last Admin: 01/08/19 09:34 Dose: 135 mg Gabapentin (Neurontin -) 800 mg PO TID [facility] Last Admin: 01/08/19 14:26 Dose: 800 mg Ceftriaxone Sodium 2 gm/ (Dextrose) 100 mls @ 100 mls/hr IVPB DAILY [facility]; Protocol Last Admin: 01/08/19 09:34 Dose: Not Given Liraglutide (Victoza -) 1.2 mg SQ HS [facility] Last Admin: 01/07/19 22:19 Dose: 1.2 mg Ondansetron HCl (Zofran Injection) 4 mg IVPUSH Q6H PRN PRN Reason: NAUSEA AND/OR VOMITING Oxycodone HCl (Roxicodone -) 15 mg PO Q4H PRN PRN Reason: PAIN LEVEL 1-5 Last Admin: 01/08/19 12:55 Dose: 15 mg Pioglitazone HCl (Actos -) 30 mg PO DAILY@0700 [facility] Last Admin: 01/08/19 06:24 Dose: 30 mg Polyethylene Glycol (Miralax (For Daily Use) -) 17 gm PO BID [facility] Last Admin: 01/08/19 10:17 Dose: Not Given Rosuvastatin Calcium (Crestor -) 20 mg PO [facility] Last Admin: 01/07/19 22:19 Dose: 20 mg Senna (Senna -) 2 tab PO HS PRN PRN Reason: CONSTIPATION Last Admin: 01/07/19 22:19 Dose: 2 tab Microbiology 01/02/19 18:00 Wound Gram Stain - Final 01/02/19 18:00 Wound Wound Culture - Final Enterobacter Cloacae 01/02/19 18:00 Tissue-Other Gram Stain - Final 01/02/19 18:00 Tissue-Other Tissue Culture - Final Enterobacter Cloacae 01/02/19 18:00 Tissue-Other Anaerobic Culture - Final NO ANAEROBES WERE ISOLATED 01/02/19 18:00 Wound Gram Stain - Final 01/02/19 18:00 Wound Wound Culture - Final NO AEROBIC OR ANAEROBIC GROWTH OBTAINED. 12/31/18 12:48 Wound Gram Stain - Final 12/31/18 12:48 Wound Wound Culture - Final Enterobacter Cloacae 12/31/18 12:48 Wound AFB Smear Concentration - Final 12/31/18 12:48 Wound Mycobacterial Culture - Preliminary 12/31/18 12:48 Wound Gram Stain - Final 12/31/18 12:48 Wound Wound Culture - Final Enterobacter Cloacae Staphylococcus Coagulase Neg 12/31/18 12:48 Wound Gram Stain - Final 12/31/18 12:48 Wound Wound Culture - Final Enterobacter Cloacae 12/31/18 12:48 Wound ALLAN Preparation - Preliminary 12/31/18 12:48 Wound Fungal Culture - Preliminary HOSPITAL COURSE: Date of Admission:12/30/18 68 y/o M, pmh of spondylolysis, DMII, HLD, and HTN c/o neck pain. Pt is s/p cervical spine C3-C7 posterior fusion on 11/26/18, presents with surgical wound dehiscence. Pt required surgery to close the wound. S/p we worked up pt with wound cx which came back positive for enterococcus cloacae and was taken to the OR for I&D and washout of the wound. He required 2-3 I&D procedures for the wound to be completely cleared. Pt did not develop any systemic infections or symptoms. We also started pt on zosyn which was then switched to ceftriaxone for a 5 week treatment by ID for discharge. Pt's symptoms significantly improved and Home antibiotic delivery services were arranged. We placed a picc line and discharged pt home. CXR: no acute pathology EKG: NSR Wound Cx: positive for enterococcus cloacae AFB: no acid fast bacilli seen I&D Pt has not left yet due to inability to secure a VNS service, Pt did not leave yesterday 01/08/19 when he was discharged, however, pt left today morning . Date of Discharge: 01/08/19 Minutes to complete discharge: 35 Discharge Summary Problems reviewed: Yes Reason For Visit: POSTOPERATIVE WOUND DEHISCENCE Current Active Problems Wound dehiscence, surgical (Acute) Wound, surgical, infected (Acute) Condition: Improved - Instructions Diet, Activity, Other Instructions: You came to the hospital with complaints of neck pain secondary to your surgical site wound. You underwent a procedure to clean your wound- cultures were taken and you were shown to be growing an infection for which we started you on IV antibiotics and you will need to continue taking them for the next 5 weeks. Please resume all of your home medications in addition: Please take the IV antibiotic, Ceftriaxone 2grams daily for 5 weeks at the same time every day. start on 01/09 Please follow up with DR. De Oliveira within one week- Please follow up with Dr. Victoria within 2-3 days after dc you need blood work weekly labs drawn (CBC,CMP,LFTS, ESR, CRP) while you are on Antibiotics. results need to be faxed to Dr. Montanez [phone] Dr Victoria wound instructions: - keep the dressing on the neck dry and clean. - No showering. - change the dressing daily and cover with clean gauze, and cover with Tegaderm . - avoid aggressive neck movements - no heavy lifting > 5 pounds , no bending of twisting for 6 months - Wear your collar only if you feel you need to for comfort. - sutures are to be taken out by dr. Victoria in 1-2 weeks. -No heavy lifting (>5 lbs), bending or twisting x 6 months post op. -Keep dressing clean & dry; no showers as per Dr. Victoria. -Discharge planning: Home w/services: -Daily dressing changes w/dry gauze and tape. 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 -follow up with in 7-[address] [facility] [place] office; call for appointment; . Further instructions as per recommendations of Dr. Victroia that you discussed with. *if you begin to experience increased drainage from your wound, numbness/ tingling, chest pains, fevers, shortness of breath please return to the emergency room immediately Referrals: Edwin Montanez MD [Staff Physician] - 2 Weeks Andrey Laguerre [Primary Care Provider] - 1 Week Juan Manuel Victoria MD [Staff Physician] - 1 Week Disposition: VNS/HOME HEALTH CARE - Home Medications Comprehensive Discharge Medication List: Ambulatory Orders Acetaminophen/Caffeine/Butalb [Fioricet -] 1 tablet PO PRN PRN 11/26/18 Carisoprodol [Soma] 350 mg PO PRN PRN 11/26/18 Cyclosporine [Restasis] 1 each OP PRN PRN 11/26/18 Empagliflozin [Jardiance] 10 mg PO DAILY 11/26/18 Fenofibrate Nanocrystallized [Fenofibrate] 145 mg PO DAILY 11/26/18 Gabapentin 800 mg PO TID 11/26/18 Lansoprazole [Prevacid] 15 mg PO DAILY 11/26/18 Liraglutide [Victoza -] 1.2 mg SQ DAILY@0700 11/26/18 Oxycodone HCl/Acetaminophen [Percocet 10-325 mg Tablet] 1 each PO Q6H PRN Pioglitazone HCl [Actos] 30 mg PO DAILY 11/26/18 Rosuvastatin [Crestor -] 20 mg PO DAILY 11/26/18 Cyclobenzaprine HCl [Flexeril -] 10 mg PO HS #28 tablet 11/27/18 Zolpidem Tartrate [Ambien] 20 mg PO HS 01/01/19 Ceftriaxone [Rocephin -] 2 gm IVPB DAILY 35 Days vial 01/08/19 Diazepam 10 mg PO HS PRN #1 tablet MDD 10 mg 01/08/19 This patient is new to me today: Yes Date on this admission: 01/09/19 Emergency Visit: No Critical Care patient: No - Discharge Referral Referred to [facility] Med P.C.: No ATTENDING PHYSICIAN STATEMENT I saw and evaluated the patient. I reviewed the resident's note and discussed the case with the resident. I agree with the resident's findings and plan as documented. SUBJECTIVE: OBJECTIVE: ASSESSMENT AND PLAN:
--- NOTE | 2019-01-08 18:21 | PN ---
Progress Note (short form) - Note Progress Note: 68M s/p C3-C7 posterior instrumented spinal fusion (11/26/2018) now s/p I&D posterior cervical spine with delayed primary wound closure POD #6. Pain well controlled. No acute events overnight. Pt. denies overnight history of headaches, chest pain, shortness of breath, nausea, vomiting, chills, & sweats. (+) Voiding; (+) Flatus; (+) BM. (-) Dysphagia (tolerating normal diet); (-) Dysphonia. All labs and vitals reviewed. PE: AAO x 3, NAD. C-Spine: Dressing w/scant serous drainage. B/L UE & LE NV status at baseline. 68M s/p C3-C7 posterior instrumented spinal fusion (11/26/2018) now s/p I&D posterior cervical spine with delayed primary wound closure POD #6. -Pain medication: oral meds, no FOAM GUN OPERATOR; NO NSAID's. -IV Ceftriaxone as per ID Team. -DVT PPx: -Mechanical only: ANA's, SCD's. -f/u AM labs. -Incentive spirometry. -PT/OT/Rehab, OOB. -PWB B/L UE < 5lbs. -WBAT B/L LE. -No heavy lifting (>5 lbs), bending or twisting x 6 months post op. -Start with soft diet; advance diet as tolerated. -B/L UE & LE NV checks. -Care per primary medical hospitalist & ID teams. -Keep dressing clean & dry; no showers. -Discharge planning: Home tomorrow w/services: -Daily dry posterior c-spine dressing changes w/dry gauze and tape. -PICC online journalist nursing care and operational oversight. -Patient lives alone; recommend home health aid for 12 hours/day as patient cannot safely, independently attend to personal hygiene or activities of daily living. -f/u 7-10 days after rehab discharge at [facility] office; call for appointment; . -Will follow. Ruy Victoria MD (Orthopaedic Surgery).
[2019-01-08] MEDS: DOCUSATE SODIUM 100 MG CAPSULE (FP) PO PRN (18:29)
[2019-01-08] MEDS: ROSUVASTATIN CA 20 MG TABLET (FP) PO SCH (21:30)
[2019-01-08] MEDS: SENNOSIDES 8.6MG TABLET (FP) PO PRN (21:31)
[2019-01-08] MEDS: LIRAGLUTIDE 0.6 MG/0.1 ML PEN.INJCTR SQ SCH (21:31)
[2019-01-09] MEDS: PIOGLITAZONE HCL 30 MG TABLET (FP) PO SCH (06:15)
[2019-01-09] MEDS: GABAPENTIN 400 MG CAPSULE (FP) PO SCH ×2 (06:16→13:30)
[2019-01-09] MEDS ORDERED: DEXTROSE 5%-WATER 100 ML IVPB ONE (09:29)
[2019-01-09 09:37] VITALS: BP 125/72; PULSE 71; TEMP 98.7
[2019-01-09] MEDS: CEFTRIAXONE 2 GM in DEXTROSE 5%-WATER 100 ML IVPB SCH (09:48)
[2019-01-09] MEDS: POLYETHYLENE GLYCOL 3350 119 GM BTL PO SCH (09:48)
[2019-01-09] MEDS: FENOFIBRIC ACID 135 MG CAP PO SCH (09:48)
[2019-01-09] MEDS ORDERED: oxyCODONE HCL 5 MG TABLET PO ONE (10:52)
--- NOTE | 2019-01-09 11:44 | PN ---
Progress Note, Physician History of Present Illness: stable no new issues - Current Medication List Current Medications: Active Medications Acetaminophen (Tylenol -) 650 mg PO Q6H PRN PRN Reason: PAIN LEVEL 1-5 Last Admin: 01/03/19 05:07 Dose: 650 mg Cyclobenzaprine HCl (Flexeril -) 10 mg PO HS [facility] Last Admin: 01/08/19 23:27 Dose: 10 mg Docusate Sodium (Colace -) 100 mg PO Q12H PRN PRN Reason: CONSTIPATION Last Admin: 01/08/19 18:29 Dose: 100 mg Famotidine (Pepcid -) 20 mg PO DAILY PRN PRN Reason: INDIGESTION Last Admin: 01/08/19 09:33 Dose: 20 mg Fenofibric Acid (Trilipix -) 135 mg PO DAILY [facility] Last Admin: 01/09/19 09:48 Dose: 135 mg Gabapentin (Neurontin -) 800 mg PO TID [facility] Last Admin: 01/09/19 06:16 Dose: 800 mg Ceftriaxone Sodium 2 gm/ (Dextrose) 100 mls @ 100 mls/hr IVPB DAILY [facility]; Protocol Last Admin: 01/09/19 09:48 Dose: 100 mls/hr Liraglutide (Victoza -) 1.2 mg SQ HS [facility] Last Admin: 01/08/19 21:31 Dose: 1.2 mg Ondansetron HCl (Zofran Injection) 4 mg IVPUSH Q6H PRN PRN Reason: NAUSEA AND/OR VOMITING Pioglitazone HCl (Actos -) 30 mg PO DAILY@0700 [facility] Last Admin: 01/09/19 06:15 Dose: 30 mg Polyethylene Glycol (Miralax (For Daily Use) -) 17 gm PO BID [facility] Last Admin: 01/09/19 09:48 Dose: Not Given Rosuvastatin Calcium (Crestor -) 20 mg PO HS [facility] Last Admin: 01/08/19 21:30 Dose: 20 mg Senna (Senna -) 2 tab PO HS PRN PRN Reason: CONSTIPATION Last Admin: 01/08/19 21:31 Dose: 2 tab - Objective Vital Signs: Vital Signs Temperature 98.7 F 01/09/19 09:36 Pulse Rate 71 01/09/19 09:36 Respiratory Rate 20 01/09/19 09:36 Blood Pressure 125/72 01/09/19 09:36 O2 Sat by Pulse Oximetry (%) 98 01/08/19 21:00 Constitutional: Yes: No Distress, Calm Cardiovascular: Yes: S1, S2 Respiratory: Yes: Regular, CTA Bilaterally Gastrointestinal: Yes: Normal Bowel Sounds, Soft Musculoskeletal: Yes: WNL Extremities: Yes: WNL Wound/Incision: Yes: Dressing Dry and Intact Neurological: Yes: Alert, Oriented Psychiatric: Yes: Alert, Oriented Labs: CBC, BMP 01/08/19 06:37 01/05/19 07:55 INR, PTT INR 1.08 (0.83-1.09) 12/30/18 18:44 Assessment/Plan 68 y/o man with h/o HTN, DM , HTN, HL, s/p C3-7 fusion on 11/26/18 , who presented to Hospital for wound dehiscence cervical wound dehiscence wound infection dm htn smoker plan cx result noted changed to ceftriaxone will need it for another 5 weeks crp and esr
--- NOTE | 2019-01-09 13:19 | PN ---
Progress Note (short form) - Note Progress Note: S/P I&D posterior cervical spine on 01/02. called by attending, Ruy Victoria to change dressing prior to pts d/c. Pt seen, dressing and sitting in chair ready to go. Dressing c/d/i, removed. Incision c/d/i, with no erythema or drainage expressed. Sutures in place. New 4x4s and tegaderms placed. Pt tolerated well Attending updated
--- NOTE | 2019-01-09 14:40 | PN ---
Physical Exam: SUBJECTIVE: Patient seen and examined at bedside. No acute events overnight. Pt appears much more improved, no c/o or issues. Pt is walking around and cooperating with staff. Pt states he wants a full detailed instruction upon his discharge. Denies f/c/n/v/d/sob/chest pain. OBJECTIVE: Vital Signs Period Temp Pulse Resp BP Sys/Champion Pulse Ox Last 24 Hr 98.2 F-98.7 F 65-86 18-20 125-145/70-99 98-98 GENERAL: NAD, AOx, pt cooperative, pleasant and walking around HEAD: Normal with no signs of trauma. AT/AC EYES: EOMI, Sclera Clear, PERRLA NECK: Surgical dressing in posterior neck- no drainage, no purulent discharge, dressing intact LUNGS: CTA b/l HEART: RRR S1S2 ABDOMEN: Soft, NDNT NEUROLOGICAL: Cranial nerves II through XII grossly intact. Normal speech. PSYCH: Normal mood, normal affect. SKIN: Warm, dry, normal turgor, Laboratory Results - last 24 hr Home Medications Medication Instructions Recorded Acetaminophen/Caffeine/Butalb 1 tablet PO PRN PRN 11/26/18 [Fioricet -] Carisoprodol [Soma] 350 mg PO PRN PRN 11/26/18 Cyclosporine [Restasis] 1 each OP PRN PRN 11/26/18 Empagliflozin [Jardiance] 10 mg PO DAILY 11/26/18 Fenofibrate Nanocrystallized 145 mg PO DAILY 11/26/18 [Fenofibrate] Gabapentin 800 mg PO TID 11/26/18 Lansoprazole [Prevacid] 15 mg PO DAILY 11/26/18 Liraglutide [Victoza -] 1.2 mg SQ DAILY@0700 11/26/18 Oxycodone HCl/Acetaminophen 1 each PO Q6H PRN 11/26/18 [Percocet 10-325 mg Tablet] Pioglitazone HCl [Actos] 30 mg PO DAILY 11/26/18 Rosuvastatin [Crestor -] 20 mg PO DAILY 11/26/18 Cyclobenzaprine HCl [Flexeril -] 10 mg PO HS #28 tablet 11/27/18 Zolpidem Tartrate [Ambien] 20 mg PO HS 01/01/19 Ceftriaxone [Rocephin -] 2 gm IVPB DAILY 35 Days vial 01/08/19 Diazepam 10 mg PO HS PRN #1 tablet MDD 10 01/08/19 mg Microbiology 01/02/19 18:00 Wound Gram Stain - Final 01/02/19 18:00 Wound Wound Culture - Final Enterobacter Cloacae 01/02/19 18:00 Tissue-Other Gram Stain - Final 01/02/19 18:00 Tissue-Other Tissue Culture - Final Enterobacter Cloacae 01/02/19 18:00 Tissue-Other Anaerobic Culture - Final NO ANAEROBES WERE ISOLATED 01/02/19 18:00 Wound Gram Stain - Final 01/02/19 18:00 Wound Wound Culture - Final NO AEROBIC OR ANAEROBIC GROWTH OBTAINED. 12/31/18 12:48 Wound Gram Stain - Final 12/31/18 12:48 Wound Wound Culture - Final Enterobacter Cloacae 12/31/18 12:48 Wound AFB Smear Concentration - Final 12/31/18 12:48 Wound Mycobacterial Culture - Preliminary 12/31/18 12:48 Wound Gram Stain - Final 12/31/18 12:48 Wound Wound Culture - Final Enterobacter Cloacae Staphylococcus Coagulase Neg 12/31/18 12:48 Wound Gram Stain - Final 12/31/18 12:48 Wound Wound Culture - Final Enterobacter Cloacae 12/31/18 12:48 Wound ALLAN Preparation - Preliminary 12/31/18 12:48 Wound Fungal Culture - Preliminary ASSESSMENT/PLAN: 68 y/o M, pmh of spondylolysis, DMII, HLD, and HTN c/o neck pain. Pt is s/p cervical spine C3-C7 posterior fusion on 11/26/18, presents with surgical wound dehiscence #Surgical wound dehiscence s/p I&D posterior cervical spine Started on ceftriaxone, will cont for 5 weeks via PICC line Abx delivery to home is set up Cx noted Dr. Victoria to inspected the surgical scar today, dressing was changed #DM Victoza and Actose- Medications verified with patient. Pt was discharged yesterday 01/08/19, but he Left today morning 01/09/19 Visit type - Emergency Visit Emergency Visit: Yes ED Registration Date: 12/30/18 Care time: The patient presented to the Emergency Department on the above date and was hospitalized for further evaluation of their emergent condition. - New Patient This patient is new to me today: Yes Date on this admission: 01/09/19 - Critical Care Critical Care patient: No - Discharge Referral Referred to [facility] Med P.C.: No ATTENDING PHYSICIAN STATEMENT I saw and evaluated the patient. I reviewed the resident's note and discussed the case with the resident. I agree with the resident's findings and plan as documented. SUBJECTIVE: OBJECTIVE: ASSESSMENT AND PLAN:
--- NOTE | 2019-01-09 16:11 | PN ---
Teaching Attending Note Name of Resident: Vikash Dan ATTENDING PHYSICIAN STATEMENT I saw and evaluated the patient. I reviewed the resident's note and discussed the case with the resident. I agree with the resident's findings and plan as documented. SUBJECTIVE: Patient is feeling better with no acute distress, no fever or chills, wants to go home. OBJECTIVE: Vital Signs Temperature 98.7 F 01/09/19 09:36 Pulse Rate 71 01/09/19 09:36 Respiratory Rate 20 01/09/19 09:36 Blood Pressure 125/72 01/09/19 09:36 O2 Sat by Pulse Oximetry (%) 98 01/09/19 09:00 GENERAL: AAOx3, NAD, HEAD: NC, has a dressing on the post.aspect of the neck. EYES: LILI, EOMI, conjunctiva clear. LUNGS: CTAB, No wheezes, and no crackles. HEART: RRR, no m/g/r ABDOMEN: Soft, BS present in all 4 quadrants, non-distended, no JVD, EXTREMITIES: 2+ pulses, warm, well-perfused. NEUROLOGICAL: Cranial nerves II-XII grossly intact. CBCD WBC 6.3 K/mm3 (4.0-10.0) 01/08/19 06:37 RBC 4.40 M/mm3 (4.00-5.60) 01/08/19 06:37 Hgb 13.0 GM/dL (11.7-16.9) 01/08/19 06:37 Hct 38.3 % (35.4-49) 01/08/19 06:37 MCV 87.1 fl (80-96) 01/08/19 06:37 MCHC 33.9 g/dl (32.0-35.9) 01/08/19 06:37 RDW 14.2 % (11.9-15.9) 01/08/19 06:37 Plt Count 156 K/MM3 (134-434) 01/08/19 06:37 MPV 10.5 fl (7.5-11.1) 01/08/19 06:37 CMP Sodium 137 mmol/L (136-145) 01/05/19 07:55 Potassium 4.6 mmol/L (3.5-5.1) 01/05/19 07:55 Chloride 104 mmol/L (98-107) 01/05/19 07:55 Carbon Dioxide 29 mmol/L (21-32) 01/05/19 07:55 Anion Gap 5 MMOL/L (8-16) L 01/05/19 07:55 BUN 15.8 mg/dL (7-18) 01/05/19 07:55 Creatinine 1.2 mg/dL (0.55-1.3) 01/05/19 07:55 Random Glucose 114 mg/dL (74-106) H 01/05/19 07:55 Calcium 9.3 mg/dL (8.5-10.1) 01/05/19 07:55 Total Bilirubin 0.4 mg/dL (0.2-1) 01/02/19 07:40 AST 16 U/L (15-37) 01/02/19 07:40 ALT 14 U/L (13-61) 01/02/19 07:40 Alkaline Phosphatase 48 U/L (45-117) 01/02/19 07:40 Total Protein 7.1 g/dl (6.4-8.2) 01/02/19 07:40 Albumin 3.9 g/dl (3.4-5.0) 01/02/19 07:40 Home Medications Medication Instructions Recorded Acetaminophen/Caffeine/Butalb 1 tablet PO PRN PRN 11/26/18 [Fioricet -] Carisoprodol [Soma] 350 mg PO PRN PRN 11/26/18 Cyclosporine [Restasis] 1 each OP PRN PRN 11/26/18 Empagliflozin [Jardiance] 10 mg PO DAILY 11/26/18 Fenofibrate Nanocrystallized 145 mg PO DAILY 11/26/18 [Fenofibrate] Gabapentin 800 mg PO TID 11/26/18 Lansoprazole [Prevacid] 15 mg PO DAILY 11/26/18 Liraglutide [Victoza -] 1.2 mg SQ DAILY@0700 11/26/18 Oxycodone HCl/Acetaminophen 1 each PO Q6H PRN 11/26/18 [Percocet 10-325 mg Tablet] Pioglitazone HCl [Actos] 30 mg PO DAILY 11/26/18 Rosuvastatin [Crestor -] 20 mg PO DAILY 11/26/18 Cyclobenzaprine HCl [Flexeril -] 10 mg PO HS #28 tablet 11/27/18 Zolpidem Tartrate [Ambien] 20 mg PO HS 01/01/19 Ceftriaxone [Rocephin -] 2 gm IVPB DAILY 35 Days vial 01/08/19 Diazepam 10 mg PO HS PRN #1 tablet MDD 10 01/08/19 mg Microbiology 01/02/19 18:00 Wound Gram Stain - Final 01/02/19 18:00 Wound Wound Culture - Final Enterobacter Cloacae 01/02/19 18:00 Tissue-Other Gram Stain - Final 01/02/19 18:00 Tissue-Other Tissue Culture - Final Enterobacter Cloacae 01/02/19 18:00 Tissue-Other Anaerobic Culture - Final NO ANAEROBES WERE ISOLATED 01/02/19 18:00 Wound Gram Stain - Final 01/02/19 18:00 Wound Wound Culture - Final NO AEROBIC OR ANAEROBIC GROWTH OBTAINED. 12/31/18 12:48 Wound Gram Stain - Final 12/31/18 12:48 Wound Wound Culture - Final Enterobacter Cloacae 12/31/18 12:48 Wound AFB Smear Concentration - Final 12/31/18 12:48 Wound Mycobacterial Culture - Preliminary 12/31/18 12:48 Wound Gram Stain - Final 12/31/18 12:48 Wound Wound Culture - Final Enterobacter Cloacae Staphylococcus Coagulase Neg 12/31/18 12:48 Wound Gram Stain - Final 12/31/18 12:48 Wound Wound Culture - Final Enterobacter Cloacae 12/31/18 12:48 Wound ALLAN Preparation - Preliminary 12/31/18 12:48 Wound Fungal Culture - Preliminary ASSESSMENT/PLAN: Patient is a 68 y/o M, pmh of spondylolysis, T2dm, HLD, and HTN c/o neck pain. Pt is s/p cervical spine C3-C7 posterior fusion on 11/26/18, presents with surgical wound dehiscence. #POD#8 Posterior c-spine wound dehiscence s/p Incision, irrigation, drainage and debridement posterior c-spine. , Inspection of fusion mass. and s/p Application of wound vac. as per , patient can go home with IV antibiotics 2gm ceftriaxone x 5 more weeks. patient has a PICC line placed on 01/08/2019. [facility] will supply his IV meds. #JAMA continue IVF #T2DM: continue home meds, and diabetic diet #HTN: cont home meds the son Recs regarding wound : no showeing, keep wound dry, cover with gauze and tigaderm daily and keep dry. no bending or twisting x 6 months. sutures to be removed by him in office in 1-2 weeks . he is to follow in office in 2-3 days . called 's office for the clarification of the Shower, waiting for a response back. - cont home percocet at dc - Cont home diazepam - Cont home fibrate - cont statin - cont neurontin - cont Victoza and Actos dc patient home.
== END 2019-01-09 14:22 | disposition home health service (06) | DRG 908 ==
LOC: JER 15:10 → JERBED 20:19 → J6S 12-31 17:00
PROVIDERS: ADMIT Internal Medicine; ATTEND Internal Medicine
PROC: 009U0ZZ Drainage of Spinal Canal, Open Approach (ICD-10-PCS; 2018-12-31)
PROC: 2W12X6Z Compression of Neck using Pressure Dressing (ICD-10-PCS; 2018-12-31)
PROC: 0PB30ZZ Excision of Cervical Vertebra, Open Approach (ICD-10-PCS; principal; 2019-01-02 14:00)
PROC: 02HV33Z Insertion of Infusion Device into Superior Vena Cava, Percutaneous Approach (ICD-10-PCS; 2019-01-08)
PROC: B518ZZA Fluoroscopy of Superior Vena Cava, Guidance (ICD-10-PCS; 2019-01-08)
DX: T81.30XA Disruption of wound, unspecified, initial encounter (principal); N17.9 Acute kidney failure, unspecified; E11.9 Type 2 diabetes mellitus without complications; I10 Essential (primary) hypertension; Y83.9 Surgical procedure, unspecified as the cause of abnormal reaction of the patient, or of later complication, without mention of misadventure at the time of the procedure; E78.5 Hyperlipidemia, unspecified; K59.00 Constipation, unspecified; M47.892 Other spondylosis, cervical region
CPT/HCPCS: 36415; 36569; 71046-TC-FY; 77001-TC-FY; 80048; 80053; 81003; 82962; 83735; 84100; 85025; 85027; 85610; 85651; 85730; 86140; 86850; 86900; 86901; 87070; 87075; 87102; 87116; 87186; 87205; 87206; 87210; 93005; 93010; 94010; 94760; 97116-GP; 97161-GP; 99285-25; C1751; J0131